=== PATIENT | female | born 1945 | race Caucasian/White ===

== ENCOUNTER → 2018-01-31 16:33 | Outpatient (CLI) | payer OTHER, SELFPAY ==
[2018-01-31 17:29] LABS: Add Manual Diff / Slide Review NO; Basophils Percent Auto 0.8 % (0-2); Eosinophils Percent Auto 6.7 % (2-4); Hematocrit 39.9 % (36-46); Hemoglobin 13.5 g/dL (12.0-16.0); Lymphocytes Percent Auto 22.3 % (25-40); Mean Corpuscular HGB Conc 33.7 % (30-36); Mean Corpuscular Hemoglobin 34.5 PG (26-34); Mean Corpuscular Volume 102.2 fL (80-100); Monocytes Percent Auto 9.4 % (3-14); Neutrophils Absolute Auto 3500 /uL (3000-5900); Neutrophils Percent Auto 60.8 % (50-75); Platelet Count 182 X10^3/uL (150-400); Red Cell Distribution Width 14.6 % (11.6-14.8); White Blood Cell Count 5.7 X10^3/uL (4.5-11.0)
[2018-01-31 17:59] LABS: Erythrocyte Sedimentation Rate 21 MM/HR (0-20)
[2018-01-31 18:59] LABS: Alanine Aminotransferase 34 IU/L (9-52); Albumin 4.2 g/dL (3.5-5.0); Albumin Globulin Ratio 1.3 (1.0-2.8); Alkaline Phosphatase 103 U/L (38-126); Aspartate Aminotransferase 31 IU/L (14-36); BUN Creatinine Ratio 38.6 (6-22); Bilirubin Total 0.5 mg/dL (0.2-1.3); Blood Urea Nitrogen 27 mg/dL (7-17); C-Reactive Protein Quant 1.3 mg/dL (<1.0); Calcium 9.4 mg/dL (8.4-10.2); Carbon Dioxide 30 mmol/L (22-32); Chloride 101 mmol/L (98-107); Estimated Glomerular Filt Rate > 60.0 mL/min (>60); Globulin 3.2 g/dL (1.7-4.1); Glucose 93 mg/dL (80-110); HEMOLYSIS < 15 (0-50); Potassium 4.6 mmol/L (3.4-5.1); Sodium 140 mmol/L (137-145); Total Protein 7.4 g/dL (6.3-8.2); Uric Acid 4.9 mg/dL (2.5-6.2)
[2018-02-02 14:16] LABS: Thyroid Stimulating Hormone 2.14 uIU/mL (0.47-4.68)
== END ==
PROVIDERS: Family Provider Physician Assistant; PCP Physician Assistant; Visit Provider Specialist/Technologist Athletic Trainer
DX: M1A.09X1 Idiopathic chronic gout, multiple sites, with tophus (tophi) (principal)
CPT/HCPCS: 36415; 80053; 84443; 84550; 85025; 85651; 86140

== ENCOUNTER → 2018-02-06 14:46 | Outpatient (CLI) | payer OTHER, SELFPAY ==
--- NOTE | 2018-02-06 | DI.RAD.S_ITS ---
PROCEDURE: XR KNEE RT 3V INDICATIONS: pain in right knee TECHNIQUE: 3 views of the knee were acquired. COMPARISON: None. FINDINGS: Bones: No fractures or dislocations. No suspicious bony lesions. Knee joint osteoarthritis is severe at the medial compartment and also the patellofemoral joint greater at the lateral facet the medial facet. Soft tissues: No joint effusion. No suspicious soft tissue calcifications. IMPRESSION: Severe degenerative knee joint osteoarthritis as discussed, most pronounced with [id number] articulation at the medial compartment and the lateral facet of the patellofemoral joint. Dictated by: Enoc Salamanca M.D. on 02/06/2018 at 15:33 Approved by: Enoc Salamanca M.D. on 02/06/2018 at 15:34
== END ==
PROVIDERS: Family Provider Physician Assistant; PCP Physician Assistant; Visit Provider Physician Assistant
DX: M17.11 Unilateral primary osteoarthritis, right knee (principal); M25.561 Pain in right knee
CPT/HCPCS: 73562

== ENCOUNTER → 2018-03-16 12:41 | Outpatient (CLI) | payer OTHER, SELFPAY ==
--- NOTE | 2018-03-16 | DI.RAD.S_ITS ---
PROCEDURE: XR FEMUR LT MIN 2V INDICATIONS: PAIN IN LEFT LEG TECHNIQUE: 4 views of the femur were acquired. COMPARISON: [facility], CR, XR KNEE ARTHRITIC SERIES RT, 02/22/2018, 8:26. FINDINGS: Bones: No fractures or dislocations. No suspicious bony lesions. Degenerative joint disease is moderate at the hip and severe at the knee. Soft tissues: No suspicious soft tissue calcifications or masses. IMPRESSION: No acute bony abnormality. Degenerative joint disease. Dictated by: Sundeep Miles M.D. on 03/16/2018 at 13:26 Approved by: Sundeep Miles M.D. on 03/16/2018 at 13:28
== END ==
PROVIDERS: Family Provider Physician Assistant; PCP Physician Assistant; Visit Provider Physician Assistant
DX: M17.12 Unilateral primary osteoarthritis, left knee (principal); M16.12 Unilateral primary osteoarthritis, left hip; M79.605 Pain in left leg
CPT/HCPCS: 73552

== ENCOUNTER → 2018-04-27 11:50 | Outpatient (CLI) | payer OTHER, SELFPAY ==
[2018-04-27 13:56] LABS: Alanine Aminotransferase 34 IU/L (9-52); Albumin 4.1 g/dL (3.5-5.0); Albumin Globulin Ratio 1.3 (1.0-2.8); Alkaline Phosphatase 103 U/L (38-126); Aspartate Aminotransferase 34 IU/L (14-36); BUN Creatinine Ratio 27.1 (6-22); Bilirubin Total 0.5 mg/dL (0.2-1.3); Blood Urea Nitrogen 19 mg/dL (7-17); Calcium 9.3 mg/dL (8.4-10.2); Carbon Dioxide 34 mmol/L (22-32); Chloride 102 mmol/L (98-107); Estimated Glomerular Filt Rate > 60.0 mL/min (>60); Globulin 3.1 g/dL (1.7-4.1); Glucose 93 mg/dL (80-110); HEMOLYSIS < 15 (0-50); Magnesium 1.9 mg/dL (1.6-2.3); Potassium 4.7 mmol/L (3.4-5.1); Sodium 143 mmol/L (137-145); Total Protein 7.2 g/dL (6.3-8.2)
[2018-05-01 10:10] LABS: Lipoprofile NMR SEE SEPERATE REPORT
== END ==
PROVIDERS: Family Provider Physician Assistant; PCP Physician Assistant; Visit Provider Specialist
DX: E78.2 Mixed hyperlipidemia (principal); I48.0 Paroxysmal atrial fibrillation
CPT/HCPCS: 36415; 80053; 83704; 83735

== ENCOUNTER → 2018-09-28 11:40 | Outpatient (CLI) | payer OTHER, SELFPAY ==
[2018-09-28 12:30] LABS: Alanine Aminotransferase 36 IU/L (9-52); Albumin 4.4 g/dL (3.5-5.0); Albumin Globulin Ratio 1.2 (1.0-2.8); Alkaline Phosphatase 96 U/L (38-126); Aspartate Aminotransferase 29 IU/L (14-36); BUN Creatinine Ratio 36.3 (6-22); Bilirubin Total 0.6 mg/dL (0.2-1.3); Blood Urea Nitrogen 29 mg/dL (7-17); C-Reactive Protein Quant 0.7 mg/dL (<1.0); Calcium 9.3 mg/dL (8.4-10.2); Carbon Dioxide 33 mmol/L (22-32); Chloride 98 mmol/L (98-107); Cholesterol 229 mg/dL (140-199); Estimated Glomerular Filt Rate > 60.0 mL/min (>60); Globulin 3.6 g/dL (1.7-4.1); Glucose 95 mg/dL (80-110); HDL Cholesterol 75 mg/dL (40-60); HEMOLYSIS < 15 (0-50); LDL Cholesterol Calculated 130 mg/dL (<100); Magnesium 2.3 mg/dL (1.6-2.3); Potassium 4.5 mmol/L (3.4-5.1); Sodium 138 mmol/L (137-145); Triglycerides 120 mg/dL (35-150); Uric Acid 4.7 mg/dL (2.5-6.2)
[2018-09-28 13:37] LABS: Thyroid Stimulating Hormone 1.61 uIU/mL (0.47-4.68)
[2018-10-02 08:33] LABS: Lipoprofile NMR SEE SEPARATE REPORTS
== END ==
PROVIDERS: PCP Physician Assistant; Visit Provider Specialist
DX: I48.0 Paroxysmal atrial fibrillation (principal); E78.2 Mixed hyperlipidemia
CPT/HCPCS: 36415; 80053; 80061; 83704; 83735; 84443; 84550; 86140

== ENCOUNTER → 2019-04-05 11:55 | Outpatient (CLI) | payer MEDICARE, OTHER, SELFPAY ==
[2019-04-05 12:50] LABS: Add Manual Diff / Slide Review NO; Basophils Absolute Auto 0 /uL (0-100); Basophils Percent Auto 1.1 % (0-2); Eosinophils Absolute Auto 200 /uL (0-450); Eosinophils Percent Auto 5.2 % (2-4); Hematocrit 41.6 % (36-46); Hemoglobin 13.8 g/dL (12.0-16.0); Lymphocytes Absolute Auto 1200 /uL (1100-4500); Mean Corpuscular HGB Conc 33.1 % (30-36); Mean Corpuscular Hemoglobin 33.9 PG (26-34); Mean Corpuscular Volume 102.5 fL (80-100); Monocytes Absolute Auto 500 /uL (0-900); Monocytes Percent Auto 12.4 % (3-14); Neutrophils Absolute Auto 1900 /uL (1500-7000); Neutrophils Percent Auto 50.3 % (50-75); Platelet Count 183 X10^3/uL (150-400); Red Blood Cell Count 4.06 X10^6/uL (4.0-5.2); Red Cell Distribution Width 14.3 % (11.6-14.8); White Blood Cell Count 3.7 X10^3/uL (4.5-11.0)
[2019-04-05 13:21] LABS: B Type Natriuretic Peptide 406 (<100)
[2019-04-05 13:51] LABS: Free T3, Triiodothyronine Free 3.75 pg/mL (2.77-5.27); Free T4, Direct Thyroxine 1.75 ng/dL (0.78-2.19)
[2019-04-05 13:55] LABS: Alanine Aminotransferase 26 IU/L (9-52); Albumin 4.1 g/dL (3.5-5.0); Albumin Globulin Ratio 1.2 (1.0-2.8); Alkaline Phosphatase 89 U/L (38-126); Aspartate Aminotransferase 29 IU/L (14-36); Bilirubin Total 0.6 mg/dL (0.2-1.3); Blood Urea Nitrogen 21 mg/dL (7-17); Calcium 9.3 mg/dL (8.4-10.2); Carbon Dioxide 32 mmol/L (22-32); Chloride 98 mmol/L (98-107); Estimated Glomerular Filt Rate > 60.0 mL/min (>60); Globulin 3.3 g/dL (1.7-4.1); Glucose 97 mg/dL (80-110); HEMOLYSIS < 15 (0-50); Magnesium 1.8 mg/dL (1.6-2.3); Potassium 4.2 mmol/L (3.4-5.1); Sodium 140 mmol/L (137-145); Total Protein 7.4 g/dL (6.3-8.2); Uric Acid 4.2 mg/dL (2.5-6.2)
[2019-04-05 14:05] LABS: Thyroid Stimulating Hormone 0.22 uIU/mL (0.47-4.68)
[2019-04-07 15:38] LABS: Rubeola Measles IgG > 300.00 AU/mL (< 25.00)
== END ==
PROVIDERS: PCP Internal Medicine; Visit Provider Internal Medicine
DX: E03.9 Hypothyroidism, unspecified (principal); I44.2 Atrioventricular block, complete; Z01.84 Encounter for antibody response examination; M10.9 Gout, unspecified; I50.22 Chronic systolic (congestive) heart failure; I48.0 Paroxysmal atrial fibrillation
CPT/HCPCS: 36415; 80053; 83735; 83880; 84439; 84443; 84481; 84550; 85025; 86735; 86762; 86765

== ENCOUNTER → 2019-05-15 16:10 | Outpatient (CLI) | payer MEDICARE, OTHER, SELFPAY ==
--- NOTE | 2019-05-15 | DI.CT.S_ITS ---
PROCEDURE: CT ABDOMEN PELVIS W CON INDICATIONS: LOWER LEFT QUAD ABDOMINAL PAIN TECHNIQUE: After the administration of oral and intravenous contrast, 5 mm thick sections acquired from the diaphragms to the symphysis. 5 mm thick coronal and sagittal reformats were performed. For radiation dose reduction, the following was used: automated exposure control, adjustment of mA and/or kV according to patient size. COMPARISON: Located [facility], CR, XR CHEST 2VW, 10/14/2016, 6:54. FINDINGS: Image quality: Excellent. ABDOMEN: Lung bases: No acute consolidation. Scattered subsegmental atelectasis and/or scarring. No pleural effusion. Solid organs: Liver is within normal limits. Gallbladder unremarkable. Biliary system is non-dilated. Pancreas enhances normally. Spleen is normal in size and enhancement. Adrenal glands unremarkable. Kidneys are within normal limits, without hydronephrosis. Peritoneum and bowel: Trace hiatal hernia. Small bowel and duodenum unremarkable. No free fluid or air. Bowel containing right inguinal hernia. No specific evidence for bowel obstruction. Colonic diverticulosis seen. There is also a short segment of mural thickening and adjacent pericolonic inflammation/stranding involving the descending segment. No abscess identified. Rectum unremarkable, given state of decompression. Nodes and vessels: No retroperitoneal or mesenteric adenopathy. Aorta and inferior vena cava are normal in caliber. Miscellaneous: No ventral hernias. PELVIS: Genitourinary: Bladder wall thickness is normal. Bilateral inguinal hernias containing bowel on the right and fat on the left. L1 compression fracture with mild height loss, probably unchanged since 10/14/16. IMPRESSION: Presumed acute diverticulitis involving the descending colon. However, recommend clinical followup, consider endoscopy if clinically appropriate to exclude colonic malignancy. Bowel containing right inguinal hernia however no specific evidence for bowel obstruction seen at this time. Technically cannot exclude incarceration Additional chronic and incidental findings as above. Dictated by: Vaughn Monterroso M.D. on 05/16/2019 at 9:28 Approved by: Vaughn Monterroso M.D. on 05/16/2019 at 9:41
[2019-05-15 16:29] LABS: Add Manual Diff / Slide Review NO; Basophils Absolute Auto 0 /uL (0-100); Basophils Percent Auto 0.4 % (0-2); Eosinophils Absolute Auto 300 /uL (0-450); Eosinophils Percent Auto 4.8 % (2-4); Hematocrit 40.7 % (36-46); Hemoglobin 13.5 g/dL (12.0-16.0); Lymphocytes Absolute Auto 1300 /uL (1100-4500); Lymphocytes Percent Auto 22.5 % (25-40); Mean Corpuscular HGB Conc 33.2 % (30-36); Mean Corpuscular Hemoglobin 34.2 PG (26-34); Monocytes Absolute Auto 600 /uL (0-900); Monocytes Percent Auto 9.9 % (3-14); Neutrophils Absolute Auto 3700 /uL (1500-7000); Neutrophils Percent Auto 62.4 % (50-75); Platelet Count 158 X10^3/uL (150-400); Red Blood Cell Count 3.95 X10^6/uL (4.0-5.2); Red Cell Distribution Width 14.7 % (11.6-14.8); White Blood Cell Count 5.9 X10^3/uL (4.5-11.0)
[2019-05-15 16:39] LABS: Blood Urea Nitrogen 17 mg/dL (7-17)
[2019-05-15 16:51] LABS: BUN Creatinine Ratio 28.3 (6-22); Calcium 9.2 mg/dL (8.4-10.2); Carbon Dioxide 30 mmol/L (22-32); Chloride 102 mmol/L (98-107); Estimated Glomerular Filt Rate > 60.0 mL/min (>60); Glucose 104 mg/dL (80-110); HEMOLYSIS < 15 (0-50); Potassium 3.9 mmol/L (3.4-5.1); Sodium 138 mmol/L (137-145)
== END ==
PROVIDERS: PCP Internal Medicine; Visit Provider Internal Medicine
DX: R10.32 Left lower quadrant pain (principal); K57.90 Diverticulosis of intestine, part unspecified, without perforation or abscess without bleeding; K40.90 Unilateral inguinal hernia, without obstruction or gangrene, not specified as recurrent
CPT/HCPCS: 36415; 74177; 80048; 85025; Q9967

== ENCOUNTER → 2019-08-09 11:34 | Outpatient (CLI) | payer MEDICARE, OTHER, SELFPAY ==
[2019-08-09 12:50] LABS: Alanine Aminotransferase 18 IU/L (<35); Albumin 4.2 g/dL (3.5-5.0); Albumin Globulin Ratio 1.4 (1.0-2.8); Alkaline Phosphatase 92 U/L (38-126); Aspartate Aminotransferase 30 IU/L (14-36); BUN Creatinine Ratio 32.9 (6-22); Bilirubin Total 0.4 mg/dL (0.2-1.3); Blood Urea Nitrogen 23 mg/dL (7-17); Calcium 9.3 mg/dL (8.4-10.2); Carbon Dioxide 31 mmol/L (22-32); Chloride 101 mmol/L (98-107); Estimated Glomerular Filt Rate > 60.0 mL/min (>60); Glucose 90 mg/dL (80-110); HEMOLYSIS < 15 (0-50); Magnesium 2.2 mg/dL (1.6-2.3); Potassium 4.7 mmol/L (3.4-5.1); Sodium 140 mmol/L (137-145); Total Protein 7.2 g/dL (6.3-8.2)
[2019-08-09 13:12] LABS: B Type Natriuretic Peptide 181 (<100)
[2019-08-09 13:15] LABS: Thyroid Stimulating Hormone 2.72 uIU/mL (0.47-4.68)
[2019-08-13 08:29] LABS: Lipoprofile NMR SEE SEPERATE REPORT
== END ==
PROVIDERS: PCP Internal Medicine; Visit Provider Specialist
DX: R79.89 Other specified abnormal findings of blood chemistry (principal); E03.9 Hypothyroidism, unspecified; I48.0 Paroxysmal atrial fibrillation; E78.2 Mixed hyperlipidemia; I50.22 Chronic systolic (congestive) heart failure
CPT/HCPCS: 36415; 80053; 83704; 83735; 83880; 84443

== ENCOUNTER → 2020-03-27 10:25 | Outpatient (CLI) | payer MEDICARE, OTHER, SELFPAY ==
[2020-03-27 11:39] LABS: Alanine Aminotransferase 19 IU/L (<35); Albumin 3.9 g/dL (3.5-5.0); Albumin Globulin Ratio 1.2 (1.0-2.8); Alkaline Phosphatase 88 U/L (38-126); Aspartate Aminotransferase 26 IU/L (14-36); BUN Creatinine Ratio 22.5 (6-22); Bilirubin Total 0.7 mg/dL (0.2-1.3); Blood Urea Nitrogen 16 mg/dL (7-17); Carbon Dioxide 30 mmol/L (22-32); Chloride 102 mmol/L (98-107); Estimated Glomerular Filt Rate > 60.0 mL/min (>60); Globulin 3.3 g/dL (1.7-4.1); Glucose 87 mg/dL (80-110); HEMOLYSIS < 15 (0-50); Magnesium 2.2 mg/dL (1.6-2.3); Potassium 4.8 mmol/L (3.4-5.1); Sodium 137 mmol/L (137-145); Total Protein 7.2 g/dL (6.3-8.2)
[2020-03-27 11:42] LABS: Uric Acid 4.3 mg/dL (2.5-6.2)
[2020-03-27 12:09] LABS: Thyroid Stimulating Hormone 1.56 uIU/mL (0.47-4.68)
[2020-03-29 09:36] LABS: Cholesterol, Total 202 mg/dL (100-199); HDL-Cholesterol 66 mg/dL (>39); HDL-Particle (Total) 31.3 umol/L (>=30.5); Historical Reading Comment: (.); LDL Particle 1310 nmol/L (<1000); LDL Size 21.6 nm (>20.5); LDL-Cholsterol 115 mg/dL (0-99); LP-IR Score 41 (<=45); Small LDL- Particle 231 nmol/L (<=527); Triglycerides 107 mg/dL (0-149)
== END ==
PROVIDERS: PCP Internal Medicine; Referring Provider Internal Medicine; Visit Provider Specialist
DX: I48.0 Paroxysmal atrial fibrillation (principal); I42.9 Cardiomyopathy, unspecified; E78.2 Mixed hyperlipidemia; E79.0 Hyperuricemia without signs of inflammatory arthritis and tophaceous disease; E03.9 Hypothyroidism, unspecified
CPT/HCPCS: 36415; 80053; 80061; 83704; 83735; 84443; 84550

== ENCOUNTER 2020-04-30 15:18 | Inpatient (IN) | payer MEDICARE, OTHER, SELFPAY ==
[2020-04-30] VITALS (34 sets, daily range): BP systolic 132–189; BP diastolic 61–84; PULSE 60–66; RESP 15–18; TEMP 36.6–36.9; O2SAT 93–98; BMI 43.9
[2020-04-30] MEDS: SODIUM CHLORIDE 0.9% 1,000 ML 125 ML IV (16:17)
[2020-04-30 16:23] LABS: Bacteria Urine Many (>30); Culture Indicated Urine Cult Not Indicated; RBC Urine 1-5/HPF (0-5/HPF); Squamous Epithelial Cell Urine 10-30 /HPF (0-5/HPF); WBC Urine 5-10/HPF (0-5/HPF)
[2020-04-30 16:31] LABS: Add Manual Diff / Slide Review NO; Basophils Absolute Auto 0 /uL (0-100); Basophils Percent Auto 0.8 % (0-2); Eosinophils Absolute Auto 200 /uL (0-450); Eosinophils Percent Auto 5.2 % (2-4); Hematocrit 41.6 % (36-46); Hemoglobin 13.8 g/dL (12.0-16.0); Lymphocytes Absolute Auto 1300 /uL (1100-4500); Lymphocytes Percent Auto 28.4 % (25-40); Mean Corpuscular HGB Conc 33.1 % (30-36); Mean Corpuscular Hemoglobin 34.8 PG (26-34); Mean Corpuscular Volume 105.2 fL (80-100); Monocytes Absolute Auto 500 /uL (0-900); Monocytes Percent Auto 11.2 % (3-14); Neutrophils Absolute Auto 2500 /uL (1500-7000); Neutrophils Percent Auto 54.4 % (50-75); Platelet Count 176 X10^3/uL (150-400); Red Blood Cell Count 3.96 X10^6/uL (4.0-5.2); Red Cell Distribution Width 14.4 % (11.6-14.8); White Blood Cell Count 4.6 X10^3/uL (4.5-11.0)
[2020-04-30 16:38] LABS: INR 3.1 (0.9-1.3); Prothrombin Time 35.7 SECONDS (10.1-12.7)
[2020-04-30 16:50] LABS: Alanine Aminotransferase 19 IU/L (<35); Albumin 4.2 g/dL (3.5-5.0); Albumin Globulin Ratio 1.2 (1.0-2.8); Alkaline Phosphatase 93 U/L (38-126); Aspartate Aminotransferase 35 IU/L (14-36); BUN Creatinine Ratio 32.4 (6-22); Bilirubin Total 0.6 mg/dL (0.2-1.3); Blood Urea Nitrogen 24 mg/dL (7-17); Calcium 8.9 mg/dL (8.4-10.2); Carbon Dioxide 34 mmol/L (22-32); Chloride 100 mmol/L (98-107); Estimated Glomerular Filt Rate > 60.0 mL/min (>60); Globulin 3.5 g/dL (1.7-4.1); Glucose 99 mg/dL (80-110); HEMOLYSIS 15 (0-50); Lipase 32 U/L (23-300); Potassium 4.1 mmol/L (3.4-5.1); Sodium 139 mmol/L (137-145); Total Protein 7.7 g/dL (6.3-8.2)
[2020-04-30 16:51] LABS: Lactate (Lactic Acid) 0.7 mmol/L (0.7-2.1)
--- NOTE | 2020-04-30 16:52 | DI.CT.S_ITS ---
PROCEDURE: CT ABDOMEN PELVIS W CON INDICATIONS: RLQ pain, hx diverticulitis in left quad, appy? TECHNIQUE: After the administration of intravenous contrast, 5 mm thick sections acquired from the diaphragm to the symphysis. 5 mm coronal and sagittal reformats were acquired. For radiation dose reduction, the following was used: automated exposure control, adjustment of mA and/or kV according to patient size. COMPARISON: [facility], CT, CT ABDOMEN PELVIS W CON, 05/15/2019, 17:09. FINDINGS: Image quality: Excellent. ABDOMEN: Lung bases: There is mild atelectasis and scarring in the lung bases. Heart size is enlarged. There is a minimal amount of pericardial fluid redemonstrated. There are pacemaker leads extending into the right atrium, right ventricle, and coronary sinus. There is a small hiatal hernia. Solid organs: Evaluation of the liver demonstrates no focal hepatic lesions. The gallbladder appears within normal limits without calcified gallstones. Biliary system is non-dilated. Pancreas enhances normally. No peripancreatic fat stranding or fluid collections. No pancreatic duct dilatation. The spleen is normal in size. No adrenal nodules. Kidneys demonstrate no hydronephrosis. Peritoneum and bowel: Small bowel loops demonstrate normal wall thickness and caliber. The appendix is normal in appearance. There is partial herniation of the cecum into a small right inguinal hernia. There is mild bowel wall thickening within the inguinal canal with minimal fat stranding. Findings are suggestive of bowel incarceration with possible developing strangulation. No associated bowel obstruction. There is also herniation of a short segment of small bowel into a left inguinal hernia without associated bowel wall thickening. No associated bowel obstruction. There is colonic diverticulosis without acute diverticulitis. No free fluid or air. Nodes and vessels: No retroperitoneal or mesenteric adenopathy by size criteria. Aorta and inferior vena cava are normal in size. Miscellaneous: No ventral hernias. PELVIS: Genitourinary: The urinary bladder is partially distended. There is a small focus of gas within the bladder. Miscellaneous: No inguinal adenopathy. Bones: No suspicious bony lesions. No vertebral body compression fractures. IMPRESSION: 1. No evidence of appendicitis. 2. Partial herniation of the cecum into a small right inguinal hernia with associated mild bowel wall thickening in the inguinal canal. The findings are suggestive of bowel incarceration with possible developing strangulation. No associated bowel obstruction. 3. Herniation of a short segment of small bowel into a small left inguinal hernia without associated bowel wall thickening or obstruction. Findings discussed with JAS Esparza on April 30, 2020 at 5:55 p.m.. 4. Colonic diverticulosis without acute diverticulitis. 5. Minimal pericardial effusion. 6. Small focus of gas within the bladder is nonspecific and may be associated with prior catheterization or reflect infection from a gas-forming organism. Recommend correlation clinically. Dictated by: Ravi Camarena M.D. on 04/30/2020 at 17:51 Approved by: Ravi Camarena M.D. on 04/30/2020 at 17:59
[2020-04-30 17:06] LABS: Procalcitonin < 0.05 ng/mL (<0.5)
--- NOTE | 2020-04-30 17:53 | ED_ITS ---
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 acutely. Patient reports a few times she had similar pain but it had resolved but the severe ED and duration are much worst today. Patient denies fever, chills, nausea or vomiting or previous abdominal surgeries. She has loose stools but this is not new to patient. Patient denies urinary symptoms such as urgency, frequency, hematuria, dysuria. Patient denies history of ovarian problems in the past. Denies unusual vaginal discharge or bleeding. She denies chest pain, or dyspnea. Patient reports taking a deep red helps with pain and no other aggravating factors. Patient was seen by Dr. Spring this afternoon and was recommended to going to ED for an evaluation her his exam with exquisite discomfort in right lower quadrant. Last meal/drink at 1330. Related Data Home Medications Medication Instructions Recorded Confirmed levothyroxine [Levoxyl] 0.2 mg PO QDAY #0 10/22/11 metoprolol tartrate 25 mg PO BID #0 10/22/11 CHOLECALCIFEROL (VITAMIN D) 2,000 iu PO Q DAY #0 08/06/12 Fish Oil 1,000 mg PO Q DAY #0 08/06/12 potassium chloride 10 meq PO Q DAY #0 08/06/12 warfarin [Coumadin] 7.5 mg PO QDAY #0 08/06/12 allopurinol 04/30/20 levothyroxine [Synthroid] 04/30/20 metoprolol succinate PO 04/30/20 sotalol 04/30/20 torsemide mg 04/30/20 warfarin [Jantoven] 04/30/20 Allergies Allergy/AdvReac Type Severity Reaction Status Date / Time amoxicillin [AMOXICILLIN] Allergy Unknown Unverified 04/11/18 13:11 benzocaine [BENZOCAINE] Allergy Unknown Unverified 11/16/17 13:11 cephalexin [CEPHALEXIN] Allergy Unknown Unverified 11/16/17 13:11 metronidazole [METRONIDAZOLE] Allergy Unknown Unverified 11/16/17 13:11 oxycodone Allergy Verified 05/01/20 00:40 Review of Systems <JAS Esparza - Last Filed: 04/30/20 23:06> Review of Systems Narrative: General: Denies fever, chills, fatigue, malaise, sweats. HEENT: Denies sinus pain, ear pain, sore throat, difficulty swallowing, dizziness. Respiratory: Denies dyspnea, cough, wheezing, hemoptysis, sputum. Cardiovascular: Denies chest pain, palpitations, orthopnea, edema. Gastrointestinal: See HPI : Denies dysuria, frequency, incontinence, hematuria, urinary retention. Musculoskeletal: Denies weakness, joint pain or bony pain. Skin: Denies rash, skin lesions, or other. Neurologic: Denies weakness, headache, numbness, change in speech, confusion, seizures, incoordination. Psychiatric: No concerning psychosocial issues. 12-point review of systems is negative except for those stated above. Patient History <JAS Esparza - Last Filed: 04/30/20 23:06> Medical History (Updated 04/30/20 @ 19:29 by JAS Esparza) Afib (Acute) Ataxia (Acute) First degree AV block (Acute) Gout (Acute) Hyperlipidemia (Acute) Hypertension (Acute) Hypothyroidism (Acute) Left bundle branch block (Acute) Obese (Acute) Pacemaker (Acute) Third degree heart block (Acute) Surgical History (Updated 04/30/20 @ 19:29 by JAS Esparza) H/O cardiac radiofrequency ablation (Acute) Social History Smoking Status: Never smoker Smoking Status: Never smoker alcohol intake frequency: 3 or more drinks per day Alcohol type: wine Substance Use Type: does not use Exam <JAS Esparza - Last Filed: 04/30/20 23:06> Narrative Exam Narrative: GEN: Alert, oriented x 3, well appearing and nourished, and in no acute distress. Head: Normal cephalic, atraumatic. No scalp or temporal tenderness, palpable mass or rash. EYES: Pupils are equal, round, and reactive to light and accommodation. Extraocular muscles are intact bilaterally. There is no subconjunctival hemorrhage, exudate and sclera non-icteric. ENT: Hearing grossly intact. Nose without bleeding, purulent discharge or dev iation. Facial sinuses nontender to palpate. Mucous membrane moist, no mucosal lesion. Throat without erythema, tonsillar hypertrophy or exudate. Uvula in midline, airway patent. Neck: Trachea in midline. No JVD, non-tender without lymphadenopathy. No masses or thyroid megaly. Supple, non-tender and no meningeal signs. CARDIAC: Normal regular rate and rhythm without murmurs, gallops, or rubs. No chest wall tenderness. No peripheral edema, cyanosis or pallor. Capillary refill is less than 2 seconds. RESPIRATORY: Lungs are clear to auscultate bilaterally. No cough, wheezes, rales, or rhonchi. No stridor, respiratory distress, increase work of breathing, or accessary muscle used. ABD: Abdomen soft, non distended. Localized pain in right lower quadrants with deep palpation. Positive Rovsing sign. No guarding or rebound tenderness to palpate. Bowel sounds are normal in all 4 quadrants. There is no palpable masses or organomegaly. EXT: Right knee chronic pain and uses 2 canes for ambulation. No no loss of sensation, strength, effusion or edema. SKIN: Warm, dry, normal color for patient. No erythema, lesions or rash over visible areas. BACK: Nontender without deformity or crepitance. No flank tenderness. NEUROLOGICAL: Alert and oriented to place, time and person. Sensation and motor function intact bilaterally. No facial droops, dysphasia. PSYCHIATRIC: Irritable. No hallucinations or abnormal behaviors during the examination. Patient is not suicidal. Initial Vital Signs Initial Vital Signs: Vital Signs Pulse Rate 60 04/30/20 15:26 Pulse Oximetry 96 04/30/20 15:26 <Juanjose Gallegos MD - Last Filed: 05/01/20 00:41> Initial Vital Signs Initial Vital Signs: Vital Signs Pulse Rate 60 04/30/20 15:26 Pulse Oximetry 96 04/30/20 15:26 Scores <JAS Esparza - Last Filed: 04/30/20 23:06> GCS [place] coma scale eye opening: Spontaneous [place] coma scale verbal response: Orientated Tiffany coma scale motor response: Obey commands [place] coma scale total score: 15 Course <Caesar JAS Hawkins - Last Filed: 04/30/20 23:06> Orders Ordered: ED Orders 04/30/20 16:03 Urine Culture Stat Urine Microscopic Stat 04/30/20 16:15 Complete Blood Count AUTO DIFF Stat Comprehensive Metabolic Panel Stat Lactate (Lactic Acid) Stat Lipase Stat Procalcitonin Stat Prothrombin Time INR Stat Troponin & CK Cardiac Panel Stat 04/30/20 16:16 Type and Screen Stat 04/30/20 16:52 CT abdomen pelvis w con Stat 04/30/20 18:05 EKG-12 Lead Stat 04/30/20 18:15 COVID19 -ED/INPAT/OR/L&D Stat Acetaminophen (Tylenol) 650 mg PO Q6HR PRN PRN Reason: Fever/Mild Pain (1-3) Sodium Chloride (Normal Saline 0.9%) 1,000 mls @ 125 mls/hr IV CONT IMER Last Admin: 04/30/20 16:17 Dose: 125 mls/hr Documented by: MMINOR Sodium Chloride (Normal Saline 0.9%) 1,000 mls @ 100 mls/hr IV CONT IMER Levothyroxine Sodium (Synthroid) 200 mcg PO QACBREAK IMER Metoprolol Tartrate (Lopressor) 25 mg PO BID IMER Ondansetron HCl (Zofran) 4 mg IV Q8HR PRN PRN Reason: Nausea And Vomiting Reevaluation(s) Reevaluation #1: Continue to have RLQ with deep palpation. Attempted to reduce the hernia but difficulty finding the effectiveness since patient's large body habitus. When informed the CT findings, the patient appears to be upset, stressed and stating there are too many things happening at home. Patient has many questions about the surgery itself, duration of hospital stay, and recuperating time period. I answer to patient's questions to the best of my abilities advised patient to ask questions to the surgeon for further questions. Time: 18:00 Reevaluation #2: Dr. Castañeda consulted with CT findings and medical history. He was recommended to admit patient under medical service given patient has complicated cardiac history and he will be consulted for the surgical procedure. He is planning to go ahead with surgery likely in several hours. Patient's current coagulated state will require reversing. Time: 18:09 Reevaluation #3: Dr. Naik consulted with CT findings and history. He kindly accepted patient's care but requested Troponin test to be added and to find out the approximate time for OR since PCC needs to be ordred ahead of the time. Patient could receive vitamin K if OR time is pending for tomorrow. Time: 18:15 Consultations Consultation #1: Type and screen added as well for possible FFP use and Dr. Naik informed on negative cardiac enzymes results Time: 19:00 Consultation #2: Dr. Castañeda called back and reports he is ready to take patient to OR soon as patient's anticoagulation is reversed. He is still planning to take patient to or tonight but not critically urgent and recommended FFP at this time. T & S done and ordered [address] Naik requested and called the Lab to confirm this. I Was informed that it takes approximately 30 minutes to process this request. I called Dr. Naik back to relate this information. Time: 19:50 Consultation #3: Patient is receiving 1st FFP without side effects. Time: 20:50 Additional Consultation(s): Attempted to admit the patient after the 2nd FFP infusion but the hospitalist CERAMIST Monterroso this point until the patient is out of OR since she has other admission patient evaluate. The patient will be managed and monitored in ED then. Dr. Gallegos aware of the plan. Vital Signs Vital signs: Vital Signs - 8 hr 04/30/20 17:00 04/30/20 17:01 04/30/20 17:18 Pulse Rate 63 60 Respiratory Rate Blood Pressure 175/84 H Pulse Oximetry 98 97 04/30/20 17:30 04/30/20 18:00 04/30/20 18:09 Pulse Rate 65 64 65 Respiratory Rate Blood Pressure 152/73 H Pulse Oximetry 97 98 97 04/30/20 18:56 04/30/20 18:57 04/30/20 19:00 Pulse Rate 66 66 66 Respiratory Rate 16 Blood Pressure 143/74 H 143/74 H 148/78 H Pulse Oximetry 97 96 97 <Juanjose Gallegos MD - Last Filed: 05/01/20 00:41> Orders Ordered: ED Orders 04/30/20 16:03 Urine Culture Stat Urine Microscopic Stat 04/30/20 16:15 Complete Blood Count AUTO DIFF Stat Comprehensive Metabolic Panel Stat Lactate (Lactic Acid) Stat Lipase Stat Procalcitonin Stat Prothrombin Time INR Stat Troponin & CK Cardiac Panel Stat 04/30/20 16:16 Type and Screen Stat 04/30/20 16:52 CT abdomen pelvis w con Stat 04/30/20 18:05 EKG-12 Lead Stat 04/30/20 18:15 COVID19 -ED/INPAT/OR/L&D Stat Acetaminophen (Tylenol) 650 mg PO Q6HR PRN PRN Reason: Fever/Mild Pain (1-3) Sodium Chloride (Normal Saline 0.9%) 1,000 mls @ 125 mls/hr IV CONT IMER Last Admin: 04/30/20 16:17 Dose: 125 mls/hr Documented by: MMINOR Sodium Chloride (Normal Saline 0.9%) 1,000 mls @ 100 mls/hr IV CONT IMER Levothyroxine Sodium (Synthroid) 200 mcg PO QACBREAK IMER Metoprolol Tartrate (Lopressor) 25 mg PO BID IMER Ondansetron HCl (Zofran) 4 mg IV Q8HR PRN PRN Reason: Nausea And Vomiting Vital Signs Vital signs: Vital Signs - 8 hr 04/30/20 17:00 04/30/20 17:01 04/30/20 17:18 Pulse Rate 63 60 Respiratory Rate Blood Pressure 175/84 H Pulse Oximetry 98 97 04/30/20 17:30 04/30/20 18:00 04/30/20 18:09 Pulse Rate 65 64 65 Respiratory Rate Blood Pressure 152/73 H Pulse Oximetry 97 98 97 04/30/20 18:56 04/30/20 18:57 04/30/20 19:00 Pulse Rate 66 66 66 Respiratory Rate 16 Blood Pressure 143/74 H 143/74 H 148/78 H Pulse Oximetry 97 96 97 MDM - Abdominal Pain <JAS Esparza - Last Filed: 04/30/20 23:06> Differential Diagnosis Differential diagnosis: Likely acute appendicitis, small bowel obstruction and other (Diverticulitis, inguinal hernia, ovarian mass) Medical Records Attestation: I reviewed the patient's medical records. Lab Data Attestation: I reviewed the patient's lab results. Result diagrams: 04/30/20 16:15 04/30/20 16:15 Labs: Lab Results 04/30/20 04/30/20 04/30/20 Range/Units 16:03 16:15 16:15 WBC 4.6 (4.5-11.0) X10^3/uL RBC 3.96 L (4.0-5.2) X10^6/uL Hgb 13.8 (12.0-16.0) g/dL Hct 41.6 (36-46) % MCV 105.2 H (80-100) fL MCH 34.8 H (26-34) PG MCHC 33.1 (30-36) % RDW 14.4 (11.6-14.8) % Plt Count 176 (150-400) X10^3/uL Neut % (Auto) 54.4 (50-75) % Lymph % (Auto) 28.4 (25-40) % [place] % (Auto) 11.2 (3-14) % Eos % (Auto) 5.2 H (2-4) % Baso % (Auto) 0.8 (0-2) % Neut # (Auto) 2500 (1771-8069) /uL Lymph # (Auto) 1300 (6426-8657) /uL [place] # (Auto) 500 (0-900) /uL Eos # (Auto) 200 (0-450) /uL Baso # (Auto) 0 (0-100) /uL PT (10.1-12.7) SECONDS INR (0.9-1.3) Sodium (137-145) mmol/L Potassium (3.4-5.1) mmol/L Chloride (98-107) mmol/L Carbon Dioxide (22-32) mmol/L BUN (7-17) mg/dL Creatinine (0.52-1.04) mg/dL Estimated GFR (>60) mL/min BUN/Creatinine Ratio (6-22) Glucose (80-110) mg/dL Lactate (0.7-2.1) mmol/L Calcium (8.4-10.2) mg/dL Total Bilirubin (0.2-1.3) mg/dL AST (14-36) IU/L ALT (<35) IU/L Alkaline Phosphatase (38-126) U/L Total Creatine Kinase (30-135) U/L CK-MB (CK-2) CK-MB (CK-2) Rel Index Troponin I (0.01-0.034) ng/mL Total Protein (6.3-8.2) g/dL Albumin (3.5-5.0) g/dL Globulin (1.7-4.1) g/dL Albumin/Globulin Ratio (1.0-2.8) Lipase (23-300) U/L Procalcitonin < 0.05 (<0.5) ng/mL Urine RBC 1-5/hpf (0-5/HPF) Urine WBC 5-10/hpf H (0-5/HPF) Ur Squamous Epith Cells 10-30 /hpf H (0-5/HPF) Urine Bacteria Many (>30) H (None) Ur Culture Indicated? Cult not indicated COVID-19 PCR (Negative) Blood Type Antibody Screen 04/30/20 04/30/20 04/30/20 Range/Units 16:15 16:15 16:15 WBC (4.5-11.0) X10^3/uL RBC (4.0-5.2) X10^6/uL Hgb (12.0-16.0) g/dL Hct (36-46) % MCV (80-100) fL MCH (26-34) PG MCHC (30-36) % RDW (11.6-14.8) % Plt Count (150-400) X10^3/uL Neut % (Auto) (50-75) % Lymph % (Auto) (25-40) % [place] % (Auto) (3-14) % Eos % (Auto) (2-4) % Baso % (Auto) (0-2) % Neut # (Auto) (0752-1490) /uL Lymph # (Auto) (4814-8045) /uL [place] # (Auto) (0-900) /uL Eos # (Auto) (0-450) /uL Baso # (Auto) (0-100) /uL PT 35.7 H (10.1-12.7) SECONDS INR 3.1 H (0.9-1.3) Sodium 139 (137-145) mmol/L Potassium 4.1 (3.4-5.1) mmol/L Chloride 100 (98-107) mmol/L Carbon Dioxide 34 H (22-32) mmol/L BUN 24 H (7-17) mg/dL Creatinine 0.74 (0.52-1.04) mg/dL Estimated GFR > 60.0 (>60) mL/min BUN/Creatinine Ratio 32.4 H (6-22) Glucose 99 (80-110) mg/dL Lactate 0.7 (0.7-2.1) mmol/L Calcium 8.9 (8.4-10.2) mg/dL Total Bilirubin 0.6 (0.2-1.3) mg/dL AST 35 (14-36) IU/L ALT 19 (<35) IU/L Alkaline Phosphatase 93 (38-126) U/L Total Creatine Kinase (30-135) U/L CK-MB (CK-2) CK-MB (CK-2) Rel Index Troponin I (0.01-0.034) ng/mL Total Protein 7.7 (6.3-8.2) g/dL Albumin 4.2 (3.5-5.0) g/dL Globulin 3.5 (1.7-4.1) g/dL Albumin/Globulin Ratio 1.2 (1.0-2.8) Lipase 32 (23-300) U/L Procalcitonin (<0.5) ng/mL Urine RBC (0-5/HPF) Urine WBC (0-5/HPF) Ur Squamous Epith Cells (0-5/HPF) Urine Bacteria (None) Ur Culture Indicated? COVID-19 PCR (Negative) Blood Type Antibody Screen 04/30/20 04/30/20 04/30/20 Range/Units 16:15 16:16 18:15 WBC (4.5-11.0) X10^3/uL RBC (4.0-5.2) X10^6/uL Hgb (12.0-16.0) g/dL Hct (36-46) % MCV (80-100) fL MCH (26-34) PG MCHC (30-36) % RDW (11.6-14.8) % Plt Count (150-400) X10^3/uL Neut % (Auto) (50-75) % Lymph % (Auto) (25-40) % [place] % (Auto) (3-14) % Eos % (Auto) (2-4) % Baso % (Auto) (0-2) % Neut # (Auto) (8120-9587) /uL Lymph # (Auto) (9848-8718) /uL [place] # (Auto) (0-900) /uL Eos # (Auto) (0-450) /uL Baso # (Auto) (0-100) /uL PT (10.1-12.7) SECONDS INR (0.9-1.3) Sodium (137-145) mmol/L Potassium (3.4-5.1) mmol/L Chloride (98-107) mmol/L Carbon Dioxide (22-32) mmol/L BUN (7-17) mg/dL Creatinine (0.52-1.04) mg/dL Estimated GFR (>60) mL/min BUN/Creatinine Ratio (6-22) Glucose (80-110) mg/dL Lactate (0.7-2.1) mmol/L Calcium (8.4-10.2) mg/dL Total Bilirubin (0.2-1.3) mg/dL AST (14-36) IU/L ALT (<35) IU/L Alkaline Phosphatase (38-126) U/L Total Creatine Kinase 31 (30-135) U/L CK-MB (CK-2) TNP CK-MB (CK-2) Rel Index TNP Troponin I < 0.012 (0.01-0.034) ng/mL Total Protein (6.3-8.2) g/dL Albumin (3.5-5.0) g/dL Globulin (1.7-4.1) g/dL Albumin/Globulin Ratio (1.0-2.8) Lipase (23-300) U/L Procalcitonin (<0.5) ng/mL Urine RBC (0-5/HPF) Urine WBC (0-5/HPF) Ur Squamous Epith Cells (0-5/HPF) Urine Bacteria (None) Ur Culture Indicated? COVID-19 PCR Negative (Negative) Blood Type O Positive Antibody Screen Negative Point of care testing: Urine Dip Bedside Urine Glucose Negative Bedside Urine Bilirubin - Negative Bedside Urine Ketone - Negative Urine Specific [place] 1.015 Bedside Urine Occult Blood + Bedside Urine pH 6.0 Bedside Urine Protein - Negative Bedside Urine Urobilinogen - Negative Bedside Urine Nitrite + Positive Bedside Urine Leukocytes +/- [address] scan - abdomen/pelvis: Radiologist's Impression: [address] [address] [address] Scan Report Signed Patient: Keeley Diaz [facility]#: [id number] : 3Acct:[id number] Age/Sex: 75 / FDate of Service: 04/30/20 Loc: ED Accession Number: [id number] Procedure: CT abdomen pelvis w con Ordering Provider: Caesar Hawkins PROCEDURE: CT ABDOMEN PELVIS W CON INDICATIONS: RLQ pain, hx diverticulitis in left quad, appy? TECHNIQUE: After the administration of intravenous contrast, 5 mm thick sections acquired from the diaphragm to the symphysis. 5 mm coronal and sagittal reformats were acquired. For radiation dose reduction, the following was used: automated exposure control, adjustment of mA and/or kV according to patient size. COMPARISON: [facility], CT, CT ABDOMEN PELVIS W CON, 05/15/2019, 17:09. FINDINGS: Image quality: Excellent. ABDOMEN: Lung bases: There is mild atelectasis and scarring in the lung bases. Heart size is enlarged. There is a minimal amount of pericardial fluid redemonstrated. There are pacemaker leads extending into the right atrium, right ventricle, and coronary sinus. There is a small hiatal hernia. Solid organs: Evaluation of the liver demonstrates no focal hepatic lesions. The gallbladder appears within normal limits without calcified gallstones. Biliary system is non-dilated. Pancreas enhances normally. No peripancreatic fat stranding or fluid collections. No pancreatic duct dilatation. The spleen is normal in size. No adrenal nodules. Kidneys demonstrate no hydronephrosis. Peritoneum and bowel: Small bowel loops demonstrate normal wall thickness and caliber. The appendix is normal in appearance. There is partial herniation of the cecum into a small right inguinal hernia. There is mild bowel wall thickening within the inguinal canal with minimal fat stranding. Findings are suggestive of bowel incarceration with possible developing strangulation. No associated bowel obstruction. There is also herniation of a short segment of small bowel into a left inguinal hernia without associated bowel wall thickening. No associated bowel obstruction. There is colonic diverticulosis without acute diverticulitis. No free fluid or air. Nodes and vessels: No retroperitoneal or mesenteric adenopathy by size criteria. Aorta and inferior vena cava are normal in size. Miscellaneous: No ventral hernias. PELVIS: Genitourinary: The urinary bladder is partially distended. There is a small focus of gas within the bladder. Miscellaneous: No inguinal adenopathy. Bones: No suspicious bony lesions. No vertebral body compression fractures. IMPRESSION: 1. No evidence of appendicitis. 2. Partial herniation of the cecum into a small right inguinal hernia with as sociated mild bowel wall thickening in the inguinal canal. The findings are suggestive of bowel incarceration with possible developing strangulation. No associated bowel obstruction. 3. Herniation of a short segment of small bowel into a small left inguinal hernia without associated bowel wall thickening or obstruction. Findings discussed with JAS Esparza on April 30, 2020 at 5:55 p.m.. 4. Colonic diverticulosis without acute diverticulitis. 5. Minimal pericardial effusion. 6. Small focus of gas within the bladder is nonspecific and may be associated with prior catheterization or reflect infection from a gas-forming organism. Recommend correlation clinically. Dictated by: Ravi Camarena M.D. on 04/30/2020 at 17:51 Approved by: Ravi Camarena M.D. on 04/30/2020 at 17:59 ECG Data Attestation: I personally reviewed and interpreted this ECG as follows: Prior ECG tracings: available for review Interpretation: Sinus rhythm with occasional ventricular paced complexes rate at 69. Left [place] deviation. OK interval 128, QRS Dur duration 172, QT/QTC 510/564 Unspecific intraventricular block. No acute ST changes. Previous EKG shows atrial rhythm rate at 56 MDM Narrative Medical decision making narrative: This is a 75 year old female who presents to ED with acute onset of RLQ pain that started at 0930 this am without other associated symptoms such as nausea, vomiting, fever, chills, diarrhea. Reports no previous history of abdominal surgeries but has significant cardiac history. Patient was recommended to come in to ED for an evaluation after she was evaluated by Dr. Spring at the office today for possible surgical abdomen. Physical exam is positive for Rovsing sign and localized tenderness to palpate in RLQ. No leukocytosis. Stable H&H of 13.8/41.6. INR 3.1 with PT of 35.7. Of 24 and BUN/creatinine ratio 32.4 with normal creatinine and estimated GFR. Normal liver function test and lipase. Normal procalcitonin and lactate of 0.7. No s igns of sepsis with stable vital signs. Patient afebrile. Cardiac enzymes are negative. Urine POC test shows positive for urine nitrites with small amount of leukoesterase. Micro urine test shows WBC of 5.10 with many bacteria and squamous epithelia cells. Patient reports was unable to provide midstream urine sample. The patient does not have acute urinary symptoms and will wait for culture to be back before treating patient with antibiotic medication. Abdominal CT indicates no evidence of appendicitis. Partial herniation of the cecum into of small right inguinal hernia with associated mild bowel wall thickening in the inguinal canal, suggestive of bowel incarceration with possible developing strangulation. No bowel obstruction appreciated. Herniation of a short segment of small bowel in to us small left inguinal hernia without thickening or obstruction. Colonic diverticulosis without acute diverticulitis. Minimal pericardial effusion. Small focus of gas within the bladder which is nonspecific. Dr. Castañeda was contacted at 6:00 p.m and consulted for surgical intervention. Dr. Naik accepted the patient's care under medical service since the patient has extensive cardiac history. Patient will be taken to OR after anticoagulation was reversed with FFP and when INR reaches at 1.5. Will recheck INR post 1 hour transfusion of 2nd FFP pack. The patient signed out to Dr. Gallegos for continuation of care and reports and plan discussed. <Juanjose Gallegos MD - Last Filed: 05/01/20 00:41> Lab Data Labs: Lab Results 04/30/20 04/30/20 04/30/20 Range/Units 16:03 16:15 16:15 WBC 4.6 (4.5-11.0) X10^3/uL RBC 3.96 L (4.0-5.2) X10^6/uL Hgb 13.8 (12.0-16.0) g/dL Hct 41.6 (36-46) % MCV 105.2 H (80-100) fL MCH 34.8 H (26-34) PG MCHC 33.1 (30-36) % RDW 14.4 (11.6-14.8) % Plt Count 176 (150-400) X10^3/uL Neut % (Auto) 54.4 (50-75) % Lymph % (Auto) 28.4 (25-40) % [place] % (Auto) 11.2 (3-14) % Eos % (Auto) 5.2 H (2-4) % Baso % (Auto) 0.8 (0-2) % Neut # (Auto) 2500 (3694-5257) /uL Lymph # (Auto) 1300 (1878-0587) /uL [place] # (Auto) 500 (0-900) /uL Eos # (Auto) 200 (0-450) /uL Baso # (Auto) 0 (0-100) /uL PT (10.1-12.7) SECONDS INR (0.9-1.3) Sodium (137-145) mmol/L Potassium (3.4-5.1) mmol/L Chloride (98-107) mmol/L Carbon Dioxide (22-32) mmol/L BUN (7-17) mg/dL Creatinine (0.52-1.04) mg/dL Estimated GFR (>60) mL/min BUN/Creatinine Ratio (6-22) Glucose (80-110) mg/dL Lactate (0.7-2.1) mmol/L Calcium (8.4-10.2) mg/dL Total Bilirubin (0.2-1.3) mg/dL AST (14-36) IU/L ALT (<35) IU/L Alkaline Phosphatase (38-126) U/L Total Creatine Kinase (30-135) U/L CK-MB (CK-2) CK-MB (CK-2) Rel Index Troponin I (0.01-0.034) ng/mL Total Protein (6.3-8.2) g/dL Albumin (3.5-5.0) g/dL Globulin (1.7-4.1) g/dL Albumin/Globulin Ratio (1.0-2.8) Lipase (23-300) U/L Procalcitonin < 0.05 (<0.5) ng/mL Urine RBC 1-5/hpf (0-5/HPF) Urine WBC 5-10/hpf H (0-5/HPF) Ur Squamous Epith Cells 10-30 /hpf H (0-5/HPF) Urine Bacteria Many (>30) H (None) Ur Culture Indicated? Cult not indicated COVID-19 PCR (Negative) Blood Type Antibody Screen 04/30/20 04/30/20 04/30/20 Range/Units 16:15 16:15 16:15 WBC (4.5-11.0) X10^3/uL RBC (4.0-5.2) X10^6/uL Hgb (12.0-16.0) g/dL Hct (36-46) % MCV (80-100) fL MCH (26-34) PG MCHC (30-36) % RDW (11.6-14.8) % Plt Count (150-400) X10^3/uL Neut % (Auto) (50-75) % Lymph % (Auto) (25-40) % [place] % (Auto) (3-14) % Eos % (Auto) (2-4) % Baso % (Auto) (0-2) % Neut # (Auto) (7736-6286) /uL Lymph # (Auto) (8961-4761) /uL [place] # (Auto) (0-900) /uL Eos # (Auto) (0-450) /uL Baso # (Auto) (0-100) /uL PT 35.7 H (10.1-12.7) SECONDS INR 3.1 H (0.9-1.3) Sodium 139 (137-145) mmol/L Potassium 4.1 (3.4-5.1) mmol/L Chloride 100 (98-107) mmol/L Carbon Dioxide 34 H (22-32) mmol/L BUN 24 H (7-17) mg/dL Creatinine 0.74 (0.52-1.04) mg/dL Estimated GFR > 60.0 (>60) mL/min BUN/Creatinine Ratio 32.4 H (6-22) Glucose 99 (80-110) mg/dL Lactate 0.7 (0.7-2.1) mmol/L Calcium 8.9 (8.4-10.2) mg/dL Total Bilirubin 0.6 (0.2-1.3) mg/dL AST 35 (14-36) IU/L ALT 19 (<35) IU/L Alkaline Phosphatase 93 (38-126) U/L Total Creatine Kinase (30-135) U/L CK-MB (CK-2) CK-MB (CK-2) Rel Index Troponin I (0.01-0.034) ng/mL Total Protein 7.7 (6.3-8.2) g/dL Albumin 4.2 (3.5-5.0) g/dL Globulin 3.5 (1.7-4.1) g/dL Albumin/Globulin Ratio 1.2 (1.0-2.8) Lipase 32 (23-300) U/L Procalcitonin (<0.5) ng/mL Urine RBC (0-5/HPF) Urine WBC (0-5/HPF) Ur Squamous Epith Cells (0-5/HPF) Urine Bacteria (None) Ur Culture Indicated? COVID-19 PCR (Negative) Blood Type Antibody Screen 04/30/20 04/30/20 04/30/20 Range/Units 16:15 16:16 18:15 WBC (4.5-11.0) X10^3/uL RBC (4.0-5.2) X10^6/uL Hgb (12.0-16.0) g/dL Hct (36-46) % MCV (80-100) fL MCH (26-34) PG MCHC (30-36) % RDW (11.6-14.8) % Plt Count (150-400) X10^3/uL Neut % (Auto) (50-75) % Lymph % (Auto) (25-40) % [place] % (Auto) (3-14) % Eos % (Auto) (2-4) % Baso % (Auto) (0-2) % Neut # (Auto) (8905-8786) /uL Lymph # (Auto) (4288-7058) /uL [place] # (Auto) (0-900) /uL Eos # (Auto) (0-450) /uL Baso # (Auto) (0-100) /uL PT (10.1-12.7) SECONDS INR (0.9-1.3) Sodium (137-145) mmol/L Potassium (3.4-5.1) mmol/L Chloride (98-107) mmol/L Carbon Dioxide (22-32) mmol/L BUN (7-17) mg/dL Creatinine (0.52-1.04) mg/dL Estimated GFR (>60) mL/min BUN/Creatinine Ratio (6-22) Glucose (80-110) mg/dL Lactate (0.7-2.1) mmol/L Calcium (8.4-10.2) mg/dL Total Bilirubin (0.2-1.3) mg/dL AST (14-36) IU/L ALT (<35) IU/L Alkaline Phosphatase (38-126) U/L Total Creatine Kinase 31 (30-135) U/L CK-MB (CK-2) TNP CK-MB (CK-2) Rel Index TNP Troponin I < 0.012 (0.01-0.034) ng/mL Total Protein (6.3-8.2) g/dL Albumin (3.5-5.0) g/dL Globulin (1.7-4.1) g/dL Albumin/Globulin Ratio (1.0-2.8) Lipase (23-300) U/L Procalcitonin (<0.5) ng/mL Urine RBC (0-5/HPF) Urine WBC (0-5/HPF) Ur Squamous Epith Cells (0-5/HPF) Urine Bacteria (None) Ur Culture Indicated? COVID-19 PCR Negative (Negative) Blood Type O Positive Antibody Screen Negative Point of care testing: Urine Dip Bedside Urine Glucose Negative Bedside Urine Bilirubin - Negative Bedside Urine Ketone - Negative Urine Specific [place] 1.015 Bedside Urine Occult Blood + Bedside Urine pH 6.0 Bedside Urine Protein - Negative Bedside Urine Urobilinogen - Negative Bedside Urine Nitrite + Positive Bedside Urine Leukocytes +/- 15 Esterase Discharge Plan Departure Admit Date/Time: 04/30/20 19:21 Admit Provider: Evan Naik <Juanjose Gallegos MD - Last Filed: 05/01/20 00:41> Sign Out Provider Sign Out Attestation: I personally evaluated and examined the patient and agree with the assessment, treatment plan, and disposition of the patient as recorded by the APC.
[2020-04-30 18:25] LABS: Creatine Kinase 31 U/L (30-135)
[2020-04-30 18:36] LABS: COVID19 -Nasal RAPID Negative (Negative)
[2020-04-30 18:38] LABS: Troponin I < 0.012 ng/mL (0.01-0.034)
--- NOTE | 2020-04-30 19:27 | PC.NURSE ---
Handoff report given to LATOYA Mays
[2020-04-30 23:46] LABS: INR 2.3 (0.9-1.3); Prothrombin Time 26.8 SECONDS (10.1-12.7)
[2020-05-01] VITALS (34 sets, daily range): BP systolic 115–179; BP diastolic 44–99; PULSE 60–132; RESP 10–20; TEMP 36.1–37.5; O2SAT 85–99; BMI 43.9
--- NOTE | 2020-05-01 01:38 | PC.NURSE ---
[employer] note: patient refused to have her admitting blood pressure taken. Nurse aware.
[2020-05-01 02:03] LABS: INR 2.2 (0.9-1.3)
--- NOTE | 2020-05-01 02:10 | PM.HP.1 ---
History of Present Illness History of Present Illness Date Patient Seen: 04/30/20 Time Patient Seen: 23:00 Chief complaint: pain in lower right abdomen Narrative: Keeley Diaz is a 75 y.o. morbidly obese female anticoagulated on warfarin for atrial fibrillation, pacemaker status, chronic heart failure, who presented to the ED with lower abdominal pain in the previous morning. Described as sharp and of and on. Has had some loose stool. She denies fever, chills, nausea or vomiting or history of previous abdominal surgeries. Patient denies dysurea, urgency, frequency, hematuria. Patient denies history of ovarian problems in the past. Denies unusual vaginal discharge or bleeding. She denies chest pain, or dyspnea. Patient reports taking a deep red improves the pain. CT of the abdomen and pelvis reported There is partial herniation of the cecum into a small right inguinal hernia. There is mild bowel wall thickening within the inguinal canal with minimal fat stranding. Findings are suggestive of bowel incarceration with possible developing strangulation. No associated bowel obstruction. There is also herniation of a short segment of small bowel into a left inguinal hernia without associated bowel wall thickening.The consulted with general surgery who would like to have her INR reversed to 1.5. She received 2 units of FFP in the ED and another unit after the 2nd unit of FFP. After the 3rd unit of FFP her INR was still 2.2. We are currently transfusing 1 more unit of FFP and will follow with [address] Castañeda would like to take the patient into the OR to reduce the bowel incarceration and repair the inguinal hernia. She is afebrile, blood pressure 161/67, heart rate of 60, respiratory rate of 18, oxygen saturation of 90% on room air, she weighs 131 kg with a BMI of 43.9. WBC is 4.6, RBC 3.96, hemoglobin 13.8, platelet count of 176, INR was 2.2 down from 2.3 and down from 3.0 on initial presentation, PT is 25 seconds, sodium 139, potassium 4.1, chloride 100, CO2 34, creatinine 0.74, BUN 24, with a GFR of 60, lactate is normal, liver enzymes are also within normal limits, troponin is negative, lipase is 32, procalcitonin 0.5, UA is negative for UTI, COVID-19 is negative. Patient History Medical History (Updated 05/01/20 @ 02:16 by JAS Norman) Afib (Acute) Ataxia (Acute) Chronic heart failure (Chronic) Essential hypertension (Chronic) First degree AV block (Acute) Gout (Acute) Hyperlipidemia (Chronic) Hypertension (Acute) Hypothyroidism (Acute) Left bundle branch block (Acute) Obese (Acute) Pacemaker (Acute) Third degree heart block (Acute) Surgical History (Updated 05/01/20 @ 02:16 by JAS Norman) H/O cardiac radiofrequency ablation (Acute) Status cardiac pacemaker (Chronic) Family & Social History Safety & Behavioral: Feels Safe in Current Yes Environment Been Physically Hurt or No Threatened By a Person Tobacco & Substance use: Smoking Status Never smoker alcohol intake frequency 3 or more drinks per day Substance Use Type does not use Meds Home Medications and Allergies Home Medications Medication Instructions Recorded Confirmed Type omega [id number]-fish oil [Fish Oil] 2 cap PO DAILY #0 08/06/12 05/01/20 History warfarin [Coumadin] See Rx Instructions .ROUTE 08/06/12 05/01/20 History .COMPLEX #0 allopurinol 300 mg PO DAILY 04/30/20 05/01/20 History levothyroxine [Synthroid] 200 mcg PO DAILY 04/30/20 05/01/20 History metoprolol succinate 25 mg PO BID 04/30/20 05/01/20 History sotalol 120 mg PO BID 04/30/20 05/01/20 History torsemide 20 mg PO POSTTR 04/30/20 05/01/20 History warfarin [Jantoven] See Rx Instructions .ROUTE .COMPLEX 04/30/20 05/01/20 History clobetasol 1 applic TOPICAL BID PRN 05/01/20 05/01/20 History colchicine See Rx Instructions .ROUTE 05/01/20 05/01/20 History .COMPLEX PRN lisinopril 2.5 mg PO DAILY 05/01/20 05/01/20 History magnesium oxide 400 mg PO DAILY 05/01/20 05/01/20 History [id number]-[id number] 1 tab PO DAILY 05/01/20 05/01/20 History [Multivitamin 50 Plus] nystatin 1 applic TOPICAL DAILY PRN 05/01/20 05/01/20 History torsemide 10 mg PO DAILY PRN 05/01/20 05/01/20 History Allergies Allergy/AdvReac Type Severity Reaction Status Date / Time amoxicillin [AMOXICILLIN] Allergy Unknown Unverified 11/16/17 13:11 benzocaine [BENZOCAINE] Allergy Unknown Unverified 11/16/17 13:11 cephalexin [CEPHALEXIN] Allergy Unknown Unverified 11/16/17 13:11 metronidazole [METRONIDAZOLE] Allergy Unknown Unverified 11/16/17 13:11 oxycodone Allergy Verified 05/01/20 00:40 Review of Systems Review of Systems ROS: Yes All systems reviewed with the patient and are negative except as otherwise documented Exam Vital Signs (past 8 hours): - 04/30/20 18:56 04/30/20 18:57 04/30/20 19:00 Temperature Pulse Rate 66 66 66 Respiratory Rate 16 Blood Pressure 143/74 H 143/74 H 148/78 H Pulse Oximetry 97 96 97 04/30/20 19:30 04/30/20 20:00 04/30/20 20:30 Temperature Pulse Rate 60 65 65 Respiratory Rate Blood Pressure 132/76 Pulse Oximetry 97 97 96 04/30/20 20:44 04/30/20 20:45 04/30/20 21:00 Temperature 98.4 F Pulse Rate 64 64 64 Respiratory Rate 16 Blood Pressure 164/74 H 164/74 H Pulse Oximetry 96 96 04/30/20 21:02 04/30/20 21:07 04/30/20 21:13 Temperature 98.5 F 98.3 F Pulse Rate 63 64 63 Respiratory Rate 15 17 Blood Pressure 150/73 H 150/73 H 157/75 H Pulse Oximetry 96 04/30/20 21:14 04/30/20 21:27 04/30/20 21:30 Temperature 98.2 F Pulse Rate 63 62 62 Respiratory Rate 17 Blood Pressure 157/75 H 149/67 H Pulse Oximetry 97 97 04/30/20 21:44 04/30/20 22:00 04/30/20 22:30 Temperature Pulse Rate 60 60 60 Respiratory Rate Blood Pressure 149/67 H Pulse Oximetry 95 97 95 04/30/20 23:00 04/30/20 23:01 04/30/20 23:30 Temperature Pulse Rate 60 60 60 Respiratory Rate 18 Blood Pressure 151/70 H Pulse Oximetry 93 94 95 05/01/20 00:00 05/01/20 00:30 05/01/20 00:38 Temperature 97.2 F L 97.9 F Pulse Rate 60 60 60 Respiratory Rate 18 18 19 Blood Pressure 146/70 H 156/73 H 156/73 H Pulse Oximetry 94 93 95 05/01/20 01:00 05/01/20 01:07 05/01/20 01:34 Temperature 97.8 F Pulse Rate 60 60 60 Respiratory Rate 18 18 Blood Pressure 146/63 H 161/67 H Pulse Oximetry 96 97 98 Oxygen Delivery Method Room Air Oxygen Flow Rate 0 Narrative Exam Narrative: Gen: Alert, oriented, morbidly obese 75 y.o. female, appears uncomfortable HEENT: normocephalic, atraumatic, conjunctiva clear, sclera non-icteric, oral mucosa pink and moist Neck: supple, full ROM, no JVD, trachea is midline Resp: Lungs CTA, non-labored breathing CV: RRR, no murmur or rubs Abd: Tender in the lower right quadrant, soft, nondistended, hypoactive BTs Skin: no lesions or rashes, dry and intact Neuro: Alert and oriented X 4 w/no focal deficits. Speech clear and coherent. Extremities: moves all 4 extremities, is ambulatory, negative Abner?s sign Psyche: Anxious and irritable at times. Objective Labs Result Diagrams: 04/30/20 16:15 04/30/20 16:15 Labs: Laboratory Results - last 24 hr 04/30/20 04/30/20 04/30/20 16:03 16:15 16:15 WBC 4.6 RBC 3.96 L Hgb 13.8 Hct 41.6 MCV 105.2 H MCH 34.8 H MCHC 33.1 RDW 14.4 Plt Count 176 Neut % (Auto) 54.4 Lymph % (Auto) 28.4 [place] % (Auto) 11.2 Eos % (Auto) 5.2 H Baso % (Auto) 0.8 Neut # (Auto) 2500 Lymph # (Auto) 1300 [place] # (Auto) 500 Eos # (Auto) 200 Baso # (Auto) 0 PT INR Sodium Potassium Chloride Carbon Dioxide BUN Creatinine Estimated GFR BUN/Creatinine Ratio Glucose Lactate Calcium Total Bilirubin AST ALT Alkaline Phosphatase Total Creatine Kinase CK-MB (CK-2) CK-MB (CK-2) Rel Index Troponin I Total Protein Albumin Globulin Albumin/Globulin Ratio Lipase Procalcitonin < 0.05 Urine RBC 1-5/hpf Urine WBC 5-10/hpf H Ur Squamous Epith Cells 10-30 /hpf H Urine Bacteria Many (>30) H Ur Culture Indicated? Cult not indicated COVID-19 PCR Blood Type Antibody Screen 04/30/20 04/30/20 04/30/20 16:15 16:15 16:15 WBC RBC Hgb Hct MCV MCH MCHC RDW Plt Count Neut % (Auto) Lymph % (Auto) [place] % (Auto) Eos % (Auto) Baso % (Auto) Neut # (Auto) Lymph # (Auto) [place] # (Auto) Eos # (Auto) Baso # (Auto) PT 35.7 H INR 3.1 H Sodium 139 Potassium 4.1 Chloride 100 Carbon Dioxide 34 H BUN 24 H Creatinine 0.74 Estimated GFR > 60.0 BUN/Creatinine Ratio 32.4 H Glucose 99 Lactate 0.7 Calcium 8.9 Total Bilirubin 0.6 AST 35 ALT 19 Alkaline Phosphatase 93 Total Creatine Kinase CK-MB (CK-2) CK-MB (CK-2) Rel Index Troponin I Total Protein 7.7 Albumin 4.2 Globulin 3.5 Albumin/Globulin Ratio 1.2 Lipase 32 Procalcitonin Urine RBC Urine WBC Ur Squamous Epith Cells Urine Bacteria Ur Culture Indicated? COVID-19 PCR Blood Type Antibody Screen 04/30/20 04/30/20 04/30/20 16:15 16:16 18:15 WBC RBC Hgb Hct MCV MCH MCHC RDW Plt Count Neut % (Auto) Lymph % (Auto) [place] % (Auto) Eos % (Auto) Baso % (Auto) Neut # (Auto) Lymph # (Auto) [place] # (Auto) Eos # (Auto) Baso # (Auto) PT INR Sodium Potassium Chloride Carbon Dioxide BUN Creatinine Estimated GFR BUN/Creatinine Ratio Glucose Lactate Calcium Total Bilirubin AST ALT Alkaline Phosphatase Total Creatine Kinase 31 CK-MB (CK-2) TNP CK-MB (CK-2) Rel Index TNP Troponin I < 0.012 Total Protein Albumin Globulin Albumin/Globulin Ratio Lipase Procalcitonin Urine RBC Urine WBC Ur Squamous Epith Cells Urine Bacteria Ur Culture Indicated? COVID-19 PCR Negative Blood Type O Positive Antibody Screen Negative 04/30/20 05/01/20 23:31 01:46 WBC RBC Hgb Hct MCV MCH MCHC RDW Plt Count Neut % (Auto) Lymph % (Auto) [place] % (Auto) Eos % (Auto) Baso % (Auto) Neut # (Auto) Lymph # (Auto) [place] # (Auto) Eos # (Auto) Baso # (Auto) PT 26.8 H D 25.0 H INR 2.3 H 2.2 H Sodium Potassium Chloride Carbon Dioxide BUN Creatinine Estimated GFR BUN/Creatinine Ratio Glucose Lactate Calcium Total Bilirubin AST ALT Alkaline Phosphatase Total Creatine Kinase CK-MB (CK-2) CK-MB (CK-2) Rel Index Troponin I Total Protein Albumin Globulin Albumin/Globulin Ratio Lipase Procalcitonin Urine RBC Urine WBC Ur Squamous Epith Cells Urine Bacteria Ur Culture Indicated? COVID-19 PCR Blood Type Antibody Screen Assessment & Plan Assessment & Plan narrative: Keeley Diaz is admitted as an inpatient for medical management of her presurgical reversal of anticoagulation of warfarin and for medical management of her cardiac conditions. Reversal of INR -She is currently on her 4th unit of FFP. Repeat PT INR is pending -prothrombin complex concentrate is available through our day pharmacy and after discussion with the pharmacy would likely drop her INR lower than desired. Incarcerated bowel, acute, present on admission -Dr. Castañeda consulting and plans to taken to the OR as soon as possible -patient is NPO except ice chips -pain control with Tylenol and ketorolac Essential hypertension, chronic -continue home dose of metoprolol succinate 25 mg p.o. b.i.d., she will receive her 1st dose tonight. -lisinopril 2.5 mg p.o. daily start tomorrow Atrial fibrillation anticoagulated with warfarin -we are currently reversing her INR to prepare her for surgery with a goal INR of 1.5 -patient is rate controlled with metoprolol -continue home dose of sotalol 120 mg p.o. b.i.d. Chronic heart failure unknown if diastolic or systolic -patient is paced as she has a history of third-degree heart block -cardiac telemetry Hypothyroidism, chronic -continue home dose of 200 mcg p.o. daily VTE prophylaxis: Wells risk score: 0 Bilateral SCDs Consults: Dr. Castañeda, consult and involvement is appreciated. Patient is admitted under inpatient status with expected length of stay greater than 2 midnights due to severity of presenting symptoms, risk of adverse event, and complexity of treatment plan. FEN: IV NS at 100 ml/hour, NPO, BMP and magnesium in the am. Dispo: eventual discharge to home Code Status: Full code as discussed with patient COVID-19 COVID-19 status: Negative Result date/Date tested (Pos, Neg/Pending): 04/30/20
--- NOTE | 2020-05-01 02:56 | PC.NURSE ---
Notified patient's RN, Dolly, about order for telemetry at [id number]. She stated she would get it put on as soon as possible when patient is less agitated. Patient admitted into telemetry monitoring system, pending placement on patient.
[2020-05-01] MEDS: SODIUM CHLORIDE 0.9% 1,000 ML 100 ML IV (04:26)
[2020-05-01 04:32] LABS: Prothrombin Time 23.5 SECONDS (10.1-12.7)
[2020-05-01 06:47] LABS: INR 1.8 (0.9-1.3); Prothrombin Time 21.1 SECONDS (10.1-12.7)
--- NOTE | 2020-05-01 06:55 | P.HP_ITS ---
History of Present Illness History of Present Illness Date Patient Seen: 05/01/20 Time Patient Seen: 06:55 Chief complaint: pain in lower right abdomen Narrative: This is a 75-year-old woman seen in consultation for incarcerated right hernia. She developed right lower quadrant pain today in her primary care office was sent to the emergency room had a CT scan that demonstrates the cecum is incarcerated within the right groin. At admission she is afebrile white blood cell count 5. She is anticoagulated on warfarin her initial INR is 3.1 she has received 6 units of FFP overnight it is now 1.8. No nausea vomiting no evidence of bowel obstruction on the imaging. 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 Patient History Medical History Afib (Acute) Ataxia (Acute) Chronic heart failure (Chronic) Essential hypertension (Chronic) First degree AV block (Acute) Gout (Acute) Hyperlipidemia (Chronic) Hypertension (Acute) Hypothyroidism (Acute) Left bundle branch block (Acute) Obese (Acute) Pacemaker (Acute) Third degree heart block (Acute) Surgical History H/O cardiac radiofrequency ablation (Acute) Status cardiac pacemaker (Chronic) Family & Social History Social History: household members spouse Prior Living Arrangements House Safety & Behavioral: Feels Safe in Current Yes Environment Been Physically Hurt or No Threatened By a Person Suicidal Ideation Description None Tobacco & Substance use: Smoking Status Never smoker alcohol intake frequency 3 or more drinks per day Substance Use Type does not use Meds Home Medications and Allergies Home Medications Medication Instructions Recorded Confirmed Type omega [id number]-bcq-kfg-fish oil [Fish Oil] 2 cap PO DAILY #0 08/06/12 05/01/20 History warfarin [Coumadin] See Rx Instructions .ROUTE 08/06/12 05/01/20 History .COMPLEX #0 allopurinol 300 mg PO DAILY 04/30/20 05/01/20 History levothyroxine [Synthroid] 200 mcg PO DAILY 04/30/20 05/01/20 History metoprolol succinate 25 mg PO BID 04/30/20 05/01/20 History sotalol 120 mg PO BID 04/30/20 05/01/20 History torsemide 20 mg PO POSTTR 04/30/20 05/01/20 History warfarin [Jantoven] See Rx Instructions .ROUTE .COMPLEX 04/30/20 05/01/20 History clobetasol 1 applic TOPICAL BID PRN 05/01/20 05/01/20 History colchicine See Rx Instructions .ROUTE 05/01/20 05/01/20 History .COMPLEX PRN lisinopril 2.5 mg PO DAILY 05/01/20 05/01/20 History magnesium oxide 400 mg PO DAILY 05/01/20 05/01/20 History clptktziszfq-eumvwjbc-sibqnm 1 tab PO DAILY 05/01/20 05/01/20 History [Multivitamin 50 Plus] nystatin 1 applic TOPICAL DAILY PRN 05/01/20 05/01/20 History torsemide 10 mg PO DAILY PRN 05/01/20 05/01/20 History Allergies Allergy/AdvReac Type Severity Reaction Status Date / Time amoxicillin [AMOXICILLIN] Allergy Unknown Unverified 11/16/17 13:11 benzocaine [BENZOCAINE] Allergy Unknown Unverified 11/16/17 13:11 cephalexin [CEPHALEXIN] Allergy Unknown Unverified 11/16/17 13:11 metronidazole [METRONIDAZOLE] Allergy Unknown Unverified 11/16/17 13:11 oxycodone Allergy Verified 05/01/20 00:40 Review of Systems Review of Systems Narrative: A 10 point review of systems is negative except as noted in the HPI Exam Vital Signs (past 8 hours): - 04/30/20 23:00 04/30/20 23:01 04/30/20 23:30 Temperature Pulse Rate 60 60 60 Respiratory Rate 18 Blood Pressure 151/70 H Pulse Oximetry 93 94 95 05/01/20 00:00 05/01/20 00:30 05/01/20 00:38 Temperature 97.2 F L 97.9 F Pulse Rate 60 60 60 Respiratory Rate 18 18 19 Blood Pressure 146/70 H 156/73 H 156/73 H Pulse Oximetry 94 93 95 05/01/20 01:00 05/01/20 01:07 05/01/20 01:34 Temperature 97.8 F Pulse Rate 60 60 60 Respiratory Rate 18 18 Blood Pressure 146/63 H 161/67 H Pulse Oximetry 96 97 98 05/01/20 02:54 05/01/20 03:00 05/01/20 03:16 Temperature 97.6 F 97.6 F 97.6 F Pulse Rate 60 60 60 Respiratory Rate 20 16 20 Blood Pressure 133/66 133/60 133/66 Pulse Oximetry 97 05/01/20 03:31 05/01/20 04:32 05/01/20 05:21 Temperature 98.8 F 98.9 F 99.5 F Pulse Rate 60 60 62 Respiratory Rate 20 18 18 Blood Pressure 115/92 H 131/66 135/70 Pulse Oximetry 05/01/20 05:36 05/01/20 05:37 05/01/20 06:14 Temperature 98.2 F 99.0 F 99.0 F Pulse Rate 60 60 60 Respiratory Rate 18 20 20 Blood Pressure 158/80 H 155/90 H 155/90 H Pulse Oximetry 05/01/20 06:41 Temperature 99.2 F Pulse Rate 60 Respiratory Rate 20 Blood Pressure 179/99 H Pulse Oximetry Oxygen Delivery Method Room Air Oxygen Flow Rate 0 Narrative Exam Narrative: General-no acute distress, morbidly obese elderly female HEENT-moist mucous membranes, no scleral icterus Neck-supple, no lymphadenopathy Chest- non labored respirations, clear to auscultation bilaterally Cardiac-regular rate no peripheral edema Abdomen-tender RLQ morbidly obese difficult to discern if there is palpable hernia within the right groin. Extremities-warm, well perfused Neurological-alert and oriented, no focal deficits Objective Labs Result Diagrams: 04/30/20 16:15 04/30/20 16:15 Labs: Laboratory Results - last 24 hr 04/30/20 04/30/20 04/30/20 16:03 16:15 16:15 WBC 4.6 RBC 3.96 L Hgb 13.8 Hct 41.6 MCV 105.2 H MCH 34.8 H MCHC 33.1 RDW 14.4 Plt Count 176 Neut % (Auto) 54.4 Lymph % (Auto) 28.4 Williams % (Auto) 11.2 Eos % (Auto) 5.2 H Baso % (Auto) 0.8 Neut # (Auto) 2500 Lymph # (Auto) 1300 Williams # (Auto) 500 Eos # (Auto) 200 Baso # (Auto) 0 PT INR Sodium Potassium Chloride Carbon Dioxide BUN Creatinine Estimated GFR BUN/Creatinine Ratio Glucose Lactate Calcium Total Bilirubin AST ALT Alkaline Phosphatase Total Creatine Kinase CK-MB (CK-2) CK-MB (CK-2) Rel Index Troponin I Total Protein Albumin Globulin Albumin/Globulin Ratio Lipase Procalcitonin < 0.05 Urine RBC 1-5/hpf Urine WBC 5-10/hpf H Ur Squamous Epith Cells 10-30 /hpf H Urine Bacteria Many (>30) H Ur Culture Indicated? Cult not indicated COVID-19 PCR Blood Type Antibody Screen 04/30/20 04/30/20 04/30/20 16:15 16:15 16:15 WBC RBC Hgb Hct MCV MCH MCHC RDW Plt Count Neut % (Auto) Lymph % (Auto) Williams % (Auto) Eos % (Auto) Baso % (Auto) Neut # (Auto) Lymph # (Auto) Williams # (Auto) Eos # (Auto) Baso # (Auto) PT 35.7 H INR 3.1 H Sodium 139 Potassium 4.1 Chloride 100 Carbon Dioxide 34 H BUN 24 H Creatinine 0.74 Estimated GFR > 60.0 BUN/Creatinine Ratio 32.4 H Glucose 99 Lactate 0.7 Calcium 8.9 Total Bilirubin 0.6 AST 35 ALT 19 Alkaline Phosphatase 93 Total Creatine Kinase CK-MB (CK-2) CK-MB (CK-2) Rel Index Troponin I Total Protein 7.7 Albumin 4.2 Globulin 3.5 Albumin/Globulin Ratio 1.2 Lipase 32 Procalcitonin Urine RBC Urine WBC Ur Squamous Epith Cells Urine Bacteria Ur Culture Indicated? COVID-19 PCR Blood Type Antibody Screen 04/30/20 04/30/20 04/30/20 16:15 16:16 18:15 WBC RBC Hgb Hct MCV MCH MCHC RDW Plt Count Neut % (Auto) Lymph % (Auto) Williams % (Auto) Eos % (Auto) Baso % (Auto) Neut # (Auto) Lymph # (Auto) Williams # (Auto) Eos # (Auto) Baso # (Auto) PT INR Sodium Potassium Chloride Carbon Dioxide BUN Creatinine Estimated GFR BUN/Creatinine Ratio Glucose Lactate Calcium Total Bilirubin AST ALT Alkaline Phosphatase Total Creatine Kinase 31 CK-MB (CK-2) TNP CK-MB (CK-2) Rel Index TNP Troponin I < 0.012 Total Protein Albumin Globulin Albumin/Globulin Ratio Lipase Procalcitonin Urine RBC Urine WBC Ur Squamous Epith Cells Urine Bacteria Ur Culture Indicated? COVID-19 PCR Negative Blood Type O Positive Antibody Screen Negative 09/23/20 09/24/20 09/24/20 23:31 01:46 04:15 WBC RBC Hgb Hct MCV MCH MCHC RDW Plt Count Neut % (Auto) Lymph % (Auto) Williams % (Auto) Eos % (Auto) Baso % (Auto) Neut # (Auto) Lymph # (Auto) Williams # (Auto) Eos # (Auto) Baso # (Auto) PT 26.8 H D 25.0 H 23.5 H INR 2.3 H 2.2 H 2.0 H Sodium Potassium Chloride Carbon Dioxide BUN Creatinine Estimated GFR BUN/Creatinine Ratio Glucose Lactate Calcium Total Bilirubin AST ALT Alkaline Phosphatase Total Creatine Kinase CK-MB (CK-2) CK-MB (CK-2) Rel Index Troponin I Total Protein Albumin Globulin Albumin/Globulin Ratio Lipase Procalcitonin Urine RBC Urine WBC Ur Squamous Epith Cells Urine Bacteria Ur Culture Indicated? COVID-19 PCR Blood Type Antibody Screen 05/01/20 06:30 WBC RBC Hgb Hct MCV MCH MCHC RDW Plt Count Neut % (Auto) Lymph % (Auto) Williams % (Auto) Eos % (Auto) Baso % (Auto) Neut # (Auto) Lymph # (Auto) Williams # (Auto) Eos # (Auto) Baso # (Auto) PT 21.1 H INR 1.8 H Sodium Potassium Chloride Carbon Dioxide BUN Creatinine Estimated GFR BUN/Creatinine Ratio Glucose Lactate Calcium Total Bilirubin AST ALT Alkaline Phosphatase Total Creatine Kinase CK-MB (CK-2) CK-MB (CK-2) Rel Index Troponin I Total Protein Albumin Globulin Albumin/Globulin Ratio Lipase Procalcitonin Urine RBC Urine WBC Ur Squamous Epith Cells Urine Bacteria Ur Culture Indicated? COVID-19 PCR Blood Type Antibody Screen Assessment & Plan Assessment and plan (1) Incarcerated hernia: Status: Acute Assessment & Plan narrative: 75-year-old female morbidly obese with heart block and a pacemaker who is here with a incarcerated right inguinal hernia containing cecum. She is anticoagulated she has been reversed with 6 units of FFP her most recent INR is now 1.8. I told her I recommended we proceed with an open right inguinal hernia repair. Told her there is a possibility that her intestine he is ischemic and if I am unable to adequately inspect her intestine via the hernia repair then she may require a diagnostic laparoscopy possible exploratory laparotomy and bowel resection. We discussed the technical nature of the procedure as well as the associated risks including bleeding infection anastomotic leak hernia recurrence chronic pain. Her questions have been answered she is in agreement with this plan will proceed to the operating room. Quality VTE Deep Vein Thrombosis/Pulmonary Embolism Present on Admission: No
[2020-05-01] MEDS: LACTATED RINGERS 1,000 ML 42 ML IV ×3 (07:00→10:17)
[2020-05-01] MEDS: levoFLOXacin 500 MG/100 ML PIGGYBACK 100 MG IV (07:20)
--- NOTE | 2020-05-01 07:55 | SUR.OPER ---
Supine on padded OR bed, head on pillow, arms secured on padded arm boards at <90 degrees abduction, legs uncrossed, safety belt at thigh, tape over blanket over lower legs.
[2020-05-01] MEDS: BUPIVACAINE 0.25% (PF) VIAL 30 ML INJ (08:37)
--- NOTE | 2020-05-01 09:13 | P.OP_ITS ---
Operative Date/Time/Diagnoses Date of procedure: 05/01/20 Time of procedure: 09:13 Pre-op diagnosis: incacerated right inguinal hernia morbid obesity Post-op diagnosis: same Procedure & Clinicians Procedure: open right inguinal hernia repair with mesh Same procedure as scheduled: Yes Indications: 75-year-old woman with morbid obesity, heart block and anticoagulated is here with an incarcerated right inguinal hernia containing cecum. Surgeon: Mateusz Castañeda Alternative Medicine Practitioner: Alicia Doe Anesthesia Type: General Operative Notes Findings: direct floor defect containing viable bowel Specimen(s): none sent Estimated Blood Loss (mL): 100 Procedure in detail: The patient was placed supine on the table and bilateral lower extremity compression devices were applied. Anesthesia was induced they were intubated with an ETT and received levofloxacin. A time-out was performed. They were prepped and draped in sterile fashion. The right external inguinal ring and the anterior superior iliac crest were identified and marked. 1 finger breath above the inguinal ligament the skin was infiltrated with 0.25% bupivacaine. The skin incision was made here and the subcutaneous tissues were divided with electrocautery exposing the external oblique aponeurosis which was then opened along the direction of its fibers. Using blunt dissection the internal oblique aporneurosis was from the external oblique upper leaflet. A large direct floor defect was identified. I opened the hernia sac and it contained viable intestine. Its content was reduced into the abdomen and the internal oblique aporneuorsis was approximated to the inguinal ligament with Ethibond suture to reapproximate the floor. I selected a 10x 15 cm lightweight Pro Loop hernia mesh. The inferior medial aspect of the mesh was anchored to insertion of the rectus muscle to the pubic tubercle such that there was approximately 2 cm of tubercle overlap with Ethibond suture and then was run along the inferior edge of the mesh to the shelving edge of the inguinal ligament. Interrupted 3 0 Vicryl suture was used to anchor the superior aspect of the mesh to the conjoined tendon in several places. the remainer of the mesh was tucked under the external oblique aponeurosis. The repair was checked for hemostasis. The wound was irrigated with sterile saline. The external oblique aponeurosis was reapproximated in a running fashion using 3 0 Vicryl. The subcutaneous tissues were reapproximated with 3 0 Vicryl skin closed with 4 0 Monocryl followed by the application of Dermabond. At the end of the operation I ensured that both testicles were within the scrotum. The sponge instrument count at the end operation was correct. The patient emerged from anesthesia was extubated and transferred to the postoperative care unit in stable condition. A total of 30 ml of of 0.25% bupivicaine was used to infiltrate the skin. Complications: none Post-operative Condition: stable Disposition: Acute Care Plan for aftercare: may resume anticoagulation 05/03
[2020-05-01] MEDS: fentaNYL 100 MCG/2 ML INJ IV ×2 (10:07→10:16)
--- NOTE | 2020-05-01 10:14 | SUR.PHASEI ---
0943 to PACU from [facility], complaining of RIH pain, hand holding site. Medicated x2 by Dr. Carpenter for pain. Repositioned in bed and HOB elevated. Dozed intermittently. Skin warm and dry. O2 sat 88%, applied O2 4LNP - up to 88-89%; Simple mask- remained in the 80s sat; applied Non-rebreather at 15L; sat up to the mid and upper 90%s.Lip balm applied for c/o dry lips. Patient coughing intermittently; given a pillow to support site. She apologized several times for her complaining, pt supported and encouraged. 1007 IV Rx for pain- see MAR for scores. Hand off to Alberto Parsons RN
[2020-05-01] MEDS: TRAMADOL 50 MG TABLET 100 MG PO (10:26)
[2020-05-01] MEDS: TORSEMIDE 10 MG TABLET 20 MG PO (10:40)
--- NOTE | 2020-05-01 10:44 | P.PN_ITS ---
Subjective Subjective Date Patient Seen: 05/01/20 Interval history: Keeley Diaz is a 75-year-old female with a past medical history significant for hypertension, hyperlipidemia, paroxysmal atrial fibrillation on warfarin third-degree AV heart block, status post pacemaker, and hypothyroidism who presented to the ED with severe right lower quadrant abdominal pain. The patient is lying in bed comfortably and recovering postoperatively from incarcerated hernia repair. She is motivated to recover quickly from the operation and return home as early as feasible. She has mild pain incision site but otherwise just reports a dull ache in her abdomen. She denies shortness of breath, headache, chest pain, nausea, vomiting, fever, chills, dysuri, diarrhea or constipation. Plan to have patient work with physical therapy later this afternoon to assure that she is safe to return home as she has several stairs to ascend to get into her house. She is voiding via Hussein catheter. Exam Vital Signs (past 8 hours): - 05/01/20 10:47 05/01/20 10:57 05/01/20 11:43 Temperature 97.5 F L 97.3 F L 98.5 F Pulse Rate 98 H 60 60 Respiratory Rate 17 16 16 Blood Pressure 166/88 H 126/65 147/62 H Pulse Oximetry 99 95 92 05/01/20 12:25 05/01/20 12:29 05/01/20 13:47 Temperature 98.5 F 97.5 F L 97.5 F L Pulse Rate 60 61 60 Respiratory Rate 16 18 18 Blood Pressure 169/78 H 147/80 H 142/81 H Pulse Oximetry 91 91 94 05/01/20 15:22 Temperature 98.6 F Pulse Rate 69 Respiratory Rate Blood Pressure 163/94 H Pulse Oximetry 90 L Oxygen Delivery Method Room Air Oxygen Flow Rate 2 Narrative Exam Narrative: General: Elderly female sitting in bed and in no acute distress, well- developed, well-nourished, slightly drowsy from anesthesia otherwise appropriately interactive HEENT: Normocephalic, atraumatic. External ears without defect. Pupils equal, round, and reactive to light. Anicteric sclerae, moist conjunctivae, and no lid lag. Oropharynx free of erythema and cobble stoning with moist mucosa. Neck: Supple with full range of motion. No jugular venous distension. No lymphadenopathy or thyromegaly. Cardiovascular: Regular rate and rhythm without murmurs, rubs, or gallops appreciated Pulmonary: Clear to auscultation bilaterally without crackles, wheezes, or rhonchi. Normal respiratory effort with no use of accessory muscles. Abdomen: Soft, obese, bowel sounds present, mild tenderness to palpation around surgical site, nondistended. Surgical site in low right abdomen, slightly under panniculus, with dressings in place C/D/I. Extremities: No clubbing or cyanosis. Trace bipedal edema. Skin: Normal temperature, turgor, and texture; no rash, ulcers, or subcutaneous nodules appreciated. Neurological: Cranial nerves grossly intact. Normal muscle strength, tone, and bulk. Reflexes, coordination, and sensory function within normal limits. No known gait impairment. Psychiatric: Slightly drowsy otherwise Normal mood and affect. Alert and oriented to person, place, and time. Objective Labs Result Diagrams: 04/30/20 16:15 04/30/20 16:15 Labs: Laboratory Results - last 24 hr 04/30/20 04/30/20 05/01/20 16:16 23:31 01:46 PT 26.8 H D 25.0 H INR 2.3 H 2.2 H Blood Type O Positive Antibody Screen Negative 05/01/20 05/01/20 04:15 06:30 PT 23.5 H 21.1 H INR 2.0 H 1.8 H Blood Type Antibody Screen Assessment & Plan Assessment & Plan narrative: Keeley Diaz is a 75-year-old female with a past medical history significant for hypertension, paroxysmal atrial fibrillation on warfarin third-degree AV heart block, status post pacemaker, and hypothyroidism who presented to the ED with severe right lower quadrant abdominal pain. 1. Acute incarcerated right inguinal hernia, status post open right inguinal hernia repair with mesh, present on admission. Active. -Patient presented with severe right lower quadrant abdominal pain. -Initial WBC normal and procalcitonin negative < 0.05. -CT abdomen and pelvis with contrast demonstrated partial herniation of the cecum into a small right inguinal hernia with associated mild bowel wall thickening in the inguinal canal suggestive of bowel incarceration with possible developing strangulation. No evidence of appendicitis or associated bowel obstruction. -Consulted general surgery, Dr. Castañeda, who performed an open repair with mesh on patient's incarcerated right inguinal hernia. Continue postoperative management, pain control and VTE prophylaxis per general surgery. 2. Paroxysmal atrial fibrillation on warfarin, status post reversal of warfarin, acute on chronic, present on admission. Stable. -Patient is followed by Cardiology, Dr. Juarez. -Patient is status post pacemaker implantation for third-degree AV heart block. Patient is aware that double beta-titi is odd but reports that this has controlled her heart rate very well. -Continue home metoprolol succinate 25 mg twice daily and sotalol 120 mg twice daily. -Held warfarin. Initial INR 3.1. Received 6 units FFP to reverse warfarin. INR now 1.8. Continue to hold warfarin and will plan to restart on 05/03 per general surgery recs. Continue to monitor INR daily. 3. Hypertension, chronic, present on admission. Stable. -Continue home lisinopril 2.5 mg daily, metoprolol succinate 25 mg twice daily and sotalol 120 mg twice daily. 4. Congestive heart failure, unknown type, chronic, present on admission. Stable. -Does not represent CHF exacerbation. -Continue to monitor strict I&Os and daily weights. -Discontinued IV fluids postoperatively and restarted home torsemide 20 mg daily to avoid fluid overload. 5. Hypothyroidism, chronic, present on admission. Stable. -TSH normal at 1.56 on 03/27/2020. -Continue home levothyroxine 200 mcg daily. 6. Gout, chronic, present on admission. Stable. -Does not represent acute gouty flare. -Continue home allopurinol 300 mg daily. Code status: Full code VTE prophylaxis: Contraindicated due to surgical repair of incarcerated hernia Disposition: Patient likely discharge home likely tomorrow with home health once she has recovered postoperatively. Quality VTE Deep Vein Thrombosis/Pulmonary Embolism Present on Admission: No
--- NOTE | 2020-05-01 10:53 | SUR.PHASEI ---
Patient noted to have very coarse lung sounds in PACU. States her lungs feel wet. Noted in chart that patient did not receive her torsemide after transfusion this am and has also received 2L fluid in OR. Notified Dr. Perkins of all of this and received order to give torsemide now. Given per order and also updated Dr. Castañeda and receiving Acute Care RN of this.
[2020-05-01] MEDS: METOPROLOL ER 25 MG TABLET PO ×2 (11:51→20:00)
[2020-05-01] MEDS: SOTALOL 80 MG TABLET 120 MG PO ×2 (11:52→20:00)
[2020-05-01] MEDS: LEVOTHYROXINE 100 MCG TABLET 200 MCG PO (11:52)
[2020-05-01] MEDS: lisinopriL 5 MG TABLET 2.5 MG PO (11:53)
[2020-05-01] MEDS: CODEINE/ACETAMINOPHEN 30/300 TABLET 1 TAB PO (13:13)
--- NOTE | 2020-05-01 14:03 | CM.IDA ---
Initial DCP Assessment Note Patient is a 75 yo female, resident of [facility]. Presented w/ severe abd pain and went to the OR this morning for Hernia repair w/Dr Castañeda PCP: Abigail Cruz Payer: MATEO/Gracie Reviewed chart, met w/patient this afternoon to introduce role. Patient admits she is very tired and had a very long day yesterday, kept this visit brief. Patient anticipates she will return home w/no needs from this [employer]. Patient lives w/her SO who is currently in [place], patient's son will make himself available to assist as needed. SO should return very soon (this w/e?) DCP team will follow closely in case DC needs or concerns arise. OMID Lees Discharge Planning/Care Management CM Discharge Assessment Start: 05/01/20 13:27 Freq: Status: Active Protocol: Document 05/01/20 13:27 TROY (Rec: 05/01/20 14:03 TROY [id number]) Discharge Planning Assessment Assigned [employer] OMID Jiménez DPOA/Assigned Designee Name CHAKA Ramey Contact Information [phone] Advance Directives? No History Provided By Patient,Medical Record Prior Living Arrangements House Household Members spouse Type of transportation used prior to Drives own vehicle admit Independent with ADL's Yes Is patient alert and oriented? Yes Barriers to Discharge No Transportation Arrangement Family Referrals Initiated None needed Additional Comment At this time
--- NOTE | 2020-05-01 14:22 | PC.NURSE ---
Patient back to floor around 1130. She has steri strips to r.inner groin from inguinal hernia repair. Just given tylenol with codiene and seems to have been helpful. Patient also has orders for tramadol but this did not seem to be effective for patients pain control. She is a 1 person assist while going to the bathroom, using the commode. Patient is needy but cooperative and pleasant.
--- NOTE | 2020-05-01 15:24 | PT-IP ANOTE ---
Received PT orders and reviewed chart. Pt was in the ED all night and was kept NPO. She had surgery this morning and has been trying unsuccessfully to rest. PT was able to gather and document PLOF but pt politely declined mobility assessment at this time. Will follow up for evaluation 05/02/20.
[2020-05-01] MEDS: SODIUM CHLORIDE 0.9% FLUSH 10 ML IV (20:16)
[2020-05-02 00:42] VITALS: BP 117/62; PULSE 59; RESP 16; TEMP 36.7; O2SAT 95
[2020-05-02 01:40] VITALS: O2SAT 95
[2020-05-02 03:30] VITALS: BP 120/69; PULSE 76; RESP 20; TEMP 36.5; O2SAT 92
[2020-05-02] MEDS: CODEINE/ACETAMINOPHEN 30/300 TABLET 1 TAB PO (06:13)
[2020-05-02] MEDS: LEVOTHYROXINE 100 MCG TABLET 200 MCG PO (06:52)
[2020-05-02 08:32] VITALS: BP 116/58; PULSE 80; RESP 16; TEMP 36.4; O2SAT 92
[2020-05-02] MEDS: SOTALOL 80 MG TABLET 120 MG PO (08:53)
[2020-05-02] MEDS: SODIUM CHLORIDE 0.9% FLUSH 10 ML IV (08:54)
[2020-05-02] MEDS: lisinopriL 5 MG TABLET 2.5 MG PO (08:54)
[2020-05-02] MEDS: METOPROLOL ER 25 MG TABLET PO (08:54)
[2020-05-02 09:00] VITALS: O2SAT 97
--- NOTE | 2020-05-02 09:10 | OT.IP.EVAL ---
Current Diagnoses Unspecified abdominal hernia with obstruction, without gangrene (04/30/20) Surgery Performed Operation Date: 05/01/20 07:15 Actual Procedures p Hernia Repair - Inguinal (Right) - Mateusz Castañeda MD Past Medical History (Last Reviewed 05/01/20 @ 06:57 by Mateusz Castañeda MD) Afib (Acute) Ataxia (Acute) Chronic heart failure (Chronic) Essential hypertension (Chronic) First degree AV block (Acute) Gout (Acute) Hyperlipidemia (Chronic) Hypertension (Acute) Hypothyroidism (Acute) Left bundle branch block (Acute) Obese (Acute) Pacemaker (Acute) Third degree heart block (Acute) Surgical History (Last Reviewed 05/01/20 @ 06:57 by Mateusz Castañeda MD) H/O cardiac radiofrequency ablation (Acute) Status cardiac pacemaker (Chronic) Occupational Therapy Inpatient Evaluation/Re-Eval M1 PT/OT-IP Prior Functional Status Start: 05/01/20 9:10 Freq: NEEDED Status: Active Protocol: Document 05/02/20 11:19 (Rec: 05/02/20 11:35 [id number]) Medical Review Prior Functional Status Medical History Reviewed Yes Communication Pt is an effective verbal communicator. No known deficits. Mobility and Gait Pt had L TKA 1 year ago and has kept up with her maintenance HEP. In addition, she does pool exercise three times per week. She is anticipating scheduling R TKA soon. Due to increased knee pain, she has been using FWW ~ 20% of the time at home and bilateral trekking poles for some community mobility. Activities of Daily Living and IADL's IND with all I/ADL's. 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 Social History Household Members spouse Living Arrangements House Number of Floors (Floors) 3 or More Floors Number of Stairs To Enter/Railing? Pt has 3 CARMEN with left rail and right grab bar ascending. Pt is able to stay on the entry processor if needed with recliner and 1/2 bath available. Shower is upstairs. 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 Her son lives in [place] but plans to be available to provide assistance at discharge along with pt's . M1 PT/OT-IP Prior Functional Status Start: 05/02/20 08:38 Freq: NEEDED Status: Active Protocol: Document 05/02/20 14:36 RM (Rec: 05/02/20 14:46 RM [id number]) Medical Review Prior Functional Status Medical History Reviewed Yes Diet/Fluid Consistency Regular Communication Pt is an effective verbal communicator. No known deficits. Mobility and Gait Pt had L TKA 1 year ago and has kept up with her maintenance HEP. In addition, she does pool exercise three times per week. She is anticipating scheduling R TKA soon. Due to increased knee pain, she has been using FWW ~ 20% of the time at home and bilateral trekking poles for some community mobility. Activities of Daily Living and IADL's IND with all I/ADL's. 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 Social History Household Members spouse Living Arrangements House Number of Floors (Floors) 3 or More Floors Number of Stairs To Enter/Railing? Pt has 3 CARMEN with left rail and right grab bar ascending. Pt is able to stay on the entry processor if needed with recliner and 1/2 bath available. Shower is upstairs. 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 Her son lives in [place] but plans to be available to provide assistance at discharge along with pt's . M2 OT-IP Current Condition Start: 05/02/20 08:38 Freq: Status: Active Protocol: Document 05/02/20 14:36 RM (Rec: 05/02/20 14:46 RM [id number]) Occupational Therapy Current Condition Current Condition Evaluation Date 05/02/20 Treatment Diagnosis incarcerated R inguinal hernia s/p repair with mesh Diagnosis Onset Date 04/30/20 Post Operative Precautions Abdominal Surgery Precautions Log Roll,Lifting Restrictions, Gait Belt above Incisional Area M3 OT- IP Subjective and Pain Start: 05/02/20 08:38 Freq: Status: Active Protocol: Document 05/02/20 14:36 RM (Rec: 05/02/20 14:46 RM [id number]) OT- Subjective Occupational Therapy Visit Type Type Initial Evaluation Visit Start Time 09:10 Visit Stop Time 09:30 Total Visit Minutes 60 Notes Patient seen for 2 sessions: 9:10-9:30 10:00-10:40 Occupational Therapy Visit Comments Patient Comments Patient reports that she feels ready to go home and will have son available for support until her is able to get home from out of town. Patient/Caregiver Goals Return home OT Pain Assessment Pain When Pain Assessed At Rest Pain Present Pain Present Pain Reported Location Right Lower Abdomen Intensity 1 Scale Used Numeric (0 - 10) M4 OT- IP ADL's Start: 05/02/20 08:38 Freq: Status: Active Protocol: Document 05/02/20 14:36 RM (Rec: 05/02/20 14:46 RM [id number]) OT ADL-Grooming General Evaluation Grooming Ability Independent OT ADL-Oral Care General Eval Oral Care Ability Independent OT ADL-Dressing General Eval Upper Body Dressing Ability Independent Lower Body Dressing Ability Independent M6 OT- IP Functional Cognition Start: 05/02/20 08:38 Freq: Status: Active Protocol: Document 05/02/20 14:36 RM (Rec: 05/02/20 14:46 RM [id number]) Cognitive Factors Limiting Selfcare Function Cognitive Ability Level of Alertness Alert Patient Orientation Name,Month,Date,Year,Place, Situation Attention Span Ability Capable of Focused Attention, Capable of Sustained Attention Ability to Follow Commands Able to Follow Multi-Step Commands Memory Description No Deficits Noted Safety Awareness No Deficits Noted Executive Function Ability No Deficits Noted Abstract Thinking Ability No Deficits Noted OT- Vision and Hearing OT- Hearing Assessment OT- Hearing Assessment WFL OT- Vision Assessment Visual Acuity Glasses For Reading M7 OT- IP Mobility and Balance Start: 05/02/20 08:38 Freq: Status: Active Protocol: Document 05/02/20 14:36 RM (Rec: 05/02/20 14:46 RM [id number]) OT- Bed Mobility Assessment Rolling Type of Rolling Log Rolling Level of Assistance Independent Supine to Sit Supine to Sit Assist Independent Sit to Supine Sit to Supine Assist Independent OT-Transfer Assessment Sit to and From Stand Sit to and from Stand Standby Assistance Transfers Transfer Ability Standby Assistance Technique Transfer Destination Bed,Chair Devices Transfer Assistive Devices Front Wheeled Walker OT- Gait Assessment Gait Gait Assistance Required: Standby Assistance Assistive Devices Assistive Device Front Wheeled Walker Comments Gait Ability Comments Able to tolerate functional mobility in her room for ADLs M8 OT- IP Objective Assessments Start: 05/02/20 08:38 Freq: Status: Active Protocol: Document 05/02/20 14:36 RM (Rec: 05/02/20 14:46 RM [id number]) OT Strength Upper Extremity Strength Assessment Within Functional Limits M9 OT- IP Assessment and Plan Start: 05/02/20 08:38 Freq: Status: Active Protocol: Document 05/02/20 14:36 RM (Rec: 05/02/20 14:46 RM [id number]) OT Summary Assessment and Plan Potential Rehabilitation Potential Good Analytic Complexity at Evaluation Low Summary Progress Towards Goals Safe For Discharge Frequency of Treatment Frequency Of Treatment Discharge Discharge Recommendations OT Discharge Recommendations Home with Assistance
--- NOTE | 2020-05-02 09:58 | PM.PN.1 ---
Subjective Subjective Date Patient Seen: 05/02/20 Time Patient Seen: 09:58 Interval history: Patient is 1 day postop open right inguinal hernia repair for incarcerated hernia containing cecum. Today she is resting comfortably in bed with minimal discomfort. She is passing flatus. She has had no bowel movement and has no nausea and no vomiting. Exam Vital Signs (past 8 hours): - 05/02/20 03:30 05/02/20 08:32 Temperature 97.7 F 97.6 F Pulse Rate 76 80 Respiratory Rate 20 16 Blood Pressure 120/69 116/58 L Pulse Oximetry 92 92 Oxygen Delivery Method Nasal Cannula Oxygen Flow Rate 1 Narrative Exam Narrative: Patient is afebrile. She is alert and oriented. Has minimal discomfort. Abdominal exam is soft. Incision is healing nicely with no hematoma and no erythema. Objective Labs Result Diagrams: 04/30/20 16:15 04/30/20 16:15 Assessment & Plan Assessment & Plan narrative: Patient has recovered nicely following repair of an incarcerated right inguinal hernia. She is on the medical service and may be discharged per the hospitalist. Patient has been instructed to do no heavy lifting for 6 or 8 weeks. She may lift up to 15 lb. She may shower. She will resume her pre-admission medications per the medical service. She has an appointment to see her surgeon in 2 weeks. Quality VTE Deep Vein Thrombosis/Pulmonary Embolism Present on Admission: No
--- NOTE | 2020-05-02 11:35 | PT.IIE ---
Current Diagnoses Unspecified abdominal hernia with obstruction, without gangrene (04/30/20) Surgery Performed Operation Date: 05/01/20 07:15 Actual Procedures p Hernia Repair - Inguinal (Right) - Mateusz Castañeda MD Surgical History (Last Reviewed 05/01/20 @ 06:57 by Mateusz Castañeda MD) H/O cardiac radiofrequency ablation (Acute) Status cardiac pacemaker (Chronic) Medical History (Last Reviewed 05/01/20 @ 06:57 by Mateusz Castañeda MD) Afib (Acute) Ataxia (Acute) Chronic heart failure (Chronic) Essential hypertension (Chronic) First degree AV block (Acute) Gout (Acute) Hyperlipidemia (Chronic) Hypertension (Acute) Hypothyroidism (Acute) Left bundle branch block (Acute) Obese (Acute) Pacemaker (Acute) Third degree heart block (Acute) Physical Therapy Inpatient Evaluation/Re-Eval M1 PT/OT-IP Prior Functional Status Start: 05/01/20 13:43 Freq: NEEDED Status: Active Protocol: Document 05/02/20 11:19 (Rec: 05/02/20 11:35 [email or web address]) Medical Review Prior Functional Status Medical History Reviewed Yes Communication Pt is an effective verbal communicator. No known deficits. Mobility and Gait Pt had L TKA 1 year ago and has kept up with her maintenance HEP. In addition, she does pool exercise three times per week. She is anticipating scheduling R TKA soon. Due to increased knee pain, she has been using FWW ~ 20% of the time at home and bilateral trekking poles for some community mobility. Activities of Daily Living and IADL's IND with all I/ADL's. 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 Social History Household Members spouse Living Arrangements House Number of Floors (Floors) 3 or More Floors Number of Stairs To Enter/Railing? Pt has 3 CARMEN with left rail and right grab bar ascending. Pt is able to stay on the entry level marketing representative if needed with recliner and 1/2 bath available. Shower is upstairs. 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 Her son lives in [place] but plans to be available to provide assistance at discharge along with pt's . M1 PT/OT-IP Prior Functional Status Start: 05/02/20 08:38 Freq: NEEDED Status: Active Protocol: Document 05/02/20 11:19 HH (Rec: 05/02/20 11:35 [email or web address]) Medical Review Prior Functional Status Medical History Reviewed Yes Communication Pt is an effective verbal communicator. No known deficits. Mobility and Gait Pt had L TKA 1 year ago and has kept up with her maintenance HEP. In addition, she does pool exercise three times per week. She is anticipating scheduling R TKA soon. Due to increased knee pain, she has been using FWW ~ 20% of the time at home and bilateral trekking poles for some community mobility. Activities of Daily Living and IADL's IND with all I/ADL's. 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 Social History Household Members spouse Living Arrangements House Number of Floors (Floors) 3 or More Floors Number of Stairs To Enter/Railing? Pt has 3 CARMEN with left rail and right grab bar ascending. Pt is able to stay on the entry level marketing representative if needed with recliner and 1/2 bath available. Shower is upstairs. 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 Her son lives in [place] but plans to be available to provide assistance at discharge along with pt's . M2 PT-IP Current Condition Start: 05/01/20 13:43 Freq: NEEDED Status: Active Protocol: Document 05/02/20 11:19 HH (Rec: 05/02/20 11:35 [email or web address]) Physical Therapy Current Condition Current Condition Evaluation Date 05/02/20 Treatment Diagnosis R inguinal hernia repair d/t R lower abdominal pain Onset Date 05/01/20 Precautions Abdominal Surgery Precautions Log Roll,Lifting Restrictions, Gait Belt above Incisional Area Weight Bearing Status Weight Bearing Status Full Weight Bearing M3 PT-IP Subjective Start: 05/01/20 13:43 Freq: NEEDED Status: Active Protocol: Document 05/02/20 11:19 (Rec: 05/02/20 11:35 [email or web address]) Subjective Physical Therapy Visit Type Type Initial Evaluation Visit Start Time 10:10 Visit Stop Time 10:30 Total Visit Minutes 20 Notes Son attended session. Co-tx with MELINA Asher. Physical Therapy Visit Comments Patient Comments I feel a lot better today and i have already used commode this morning Patient Goals to return home with and son. Therapy Pain Assessment Pain When Pain Assessed During Mobility Pain Present Pain Present Pain Reported Location Right Lower Abdomen Intensity 2 Scale Used Numeric (0 - 10) Description Acute Pain Management Techniques Timing of Activity with Medications M4 PT-IP Mobility and Gait Start: 05/01/20 13:43 Freq: NEEDED Status: Active Protocol: Document 05/02/20 11:19 (Rec: 05/02/20 11:35 [email or web address]) PT-Bed Mobility Assessment Rolling Type of Rolling Roll to Left Level of Assist Standby Assistance Supine to Sit Supine to Sit Standby Assistance,Head of Bed Elevated Scooting Scooting to Edge of Bed Standby Assistance PT-Transfer Assessment Sit to and From Stand Sit to and from Stand Standby Assistance,Use of Upper Extremities Equipment Transfer Assistive Device Gait Belt,Front Wheeled Walker Orthotic/Prosthetic Devices or Brace: No Transfers Transfer Destination Bed,Chair Transfer Technique Stand Step Pivot Transfer Ability Level of Assist Standby Assistance,Use of Upper Extremities Comments Mobility Comments Pt was in bed with elevated HOB upon PT arrival. MELINA Asher and Son in the room as well. Pt reported she uses log roll for OOB activity but she prefered to get up from elevated HOB this time for convenience. She initially pivoted her legs to LEOB followed by pushing off through UEs to slowly sit herself up. She then stood up without using AD/ UEs at bedside. Provided pt a FWW after and pt proceed to amb with this PT to sink counter. Pt completed pericare and she was able to stand unsupportedly. She then cont to walk towards the hallway with FWW and completed stair climbing with this PT and son DECORATING MACHINE TENDER. She returned to her room and transferred herself to chair with stand step pivot technique. Pt showed good use of UEs bilaterally on chair armrests to safely descend herself to chair. Call light placed within reach and hand off to OT for cont assessment. Gait Assessment Gait Gait Assistance Required: Standby Assistance Distance (Feet) 60 Able to Maintain Weight Bearing Status Yes During Gait Assistive Devices Assistive Device Gait Belt,Front Wheeled Walker Orthotic/Prosthetic Devices or Brace: No Gait Deviations General Gait Pattern Decreased Stride Length, Decreased Feet Clearance Factors Limiting Gait Function Factors Limiting Gait Function Decreased Activity Tolerance, Decreased Strength,Pain,Poor Balance Comments Gait Comments see mobility comments Stair Climbing Assessment Evaluation Level of Assist On Stairs Minimal Assistance,1 Person Assistance Devices Stair Climbing Assistive Devices Right Railing Technique/Endurance Stair Climbing Direction Ascend and Descend Stair Climbing Technique Step to Step Number of Steps Climbed 3 Query Text: Stair Climbing Set # Repetitions (reps) 2 Comments Stair Climbing Comments Pt stated she usually uses a SPC on L and R rail to ascend and vice versa for descend. She practiced first set with this PT DECORATING MACHINE TENDER on L safely. She led with L for both ascend and descend. Son then also provided DECORATING MACHINE TENDER on pt's L side to ascend and R side to descend after safely. Educated son to also support pt with his other hand on pt's gait belt PT-Balance Assessment Sitting Balance and Reactions Static Sitting Balance Ability Normal Dynamic Sitting Balance Ability Normal Standing Balance and Reactions Static Standing Balance Ability Good Dynamic Standing Balance Ability Good Device Used FWW M5 PT-IP Objective Assessments Start: 05/01/20 13:43 Freq: NEEDED Status: Active Protocol: Document 05/02/20 11:19 (Rec: 05/02/20 11:35 [email or web address]) Orientation Orientation/Cognition Level of Alertness Alert Orientation Name,Age,Birthday,Month,Date, Year,Day of Week,Place, Situation Language Function Ability No Deficits Noted Safety Awareness Understands Safety Issues Memory Description No Deficits Noted Gross Range of Motion Upper Extremity ROM Assessment Within Functional Limits Lower Extremity ROM Assessment Within Functional Limits Strength Upper Extremity Strength Assessment Within Functional Limits Lower Extremity Strength Assessment Within Functional Limits M6 PT-IP Treatment Start: 05/01/20 13:43 Freq: NEEDED Status: Active Protocol: Document 05/02/20 11:19 (Rec: 05/02/20 11:35 [email or web address]) Physical Therapy Treatment Education Education Provided Precautions,Post-Op Packet, Safety M7 PT-IP Assessment and Plan Start: 05/01/20 13:43 Freq: NEEDED Status: Active Protocol: Document 05/02/20 11:19 (Rec: 05/02/20 11:35 [email or web address]) PT Summary Assessment and Plan Potential Rehabilitation Potential Excellent Status of Condition at Evaluation Stable Summary Impairments Pain,ROM,Strength,Balance,Bed Mobility,Transfers,Gait, Activity Tolerance Progress Towards Goals Safe For Discharge Assessment Summary This is a low complexity evaluation for this 75yo s/p POD1 R inguinal hernia repair d/t R lower abdominal pain. Pt was independent for mobility with hiking sticks/ FWW, and very active who likes to participate pool ex 3x/ week. Upon assessment, pt was able to complete amb with FWW SBA and stair climbing with son DECORATING MACHINE TENDER safely. She has good understanding of post op precautions and good family support at home. She is safe to d/c at this point with son and hsuband assistance. Frequency of Treatment Frequency Of Treatment Discharge Recommendations To Nursing Amount of Assist Needed Standby Assistance Discharge Recommendations PT Discharge Recommendations Home with Assistance Transportation Needs at Discharge Private Vehicle
--- NOTE | 2020-05-02 11:56 | P.DS_ITS ---
History of Present Illness History of Present Illness Chief complaint: pain in lower right abdomen Discharge Providers Provider Date of admission: 04/30/20 19:21 Discharge Date: 05/02/20 Primary care physician: Abigail Davis MD Consults: 04/30/20 23:30 Consult to Physician Routine Comment: Consulting Provider: Mateusz Tovar Reason for consultation: Incarcerated hernia Has provider been notified: Yes 05/01/20 11:23 Consult to Occupational Therapy Evaluate & Treat Comment: Physician Instructions: Evaluate and treat Consult to Physical Therapy Evaluate & Treat Comment: Physician Instructions: Evaluate and Treat Discharge provider: Sheryl Noble DO Summary Hospital Course Discharge Diagnosis: 1. Acute incarcerated right inguinal hernia, status post open right inguinal hernia repair with mesh, present on admission. Active. 2. Paroxysmal atrial fibrillation on warfarin, status post reversal of warfarin, acute on chronic, present on admission. Stable. 3. Hypertension, chronic, present on admission. Stable. 4. Congestive heart failure, unknown type, chronic, present on admission. Stable. 5. Hypothyroidism, chronic, present on admission. Stable. 6. Gout, chronic, present on admission. Stable. 7. Asymptomatic bacteriuria, chronic, present on admission. Stable. Hospital Course: Keeley Diaz is a 75-year-old female with a past medical history significant for hypertension, paroxysmal atrial fibrillation on warfarin third-degree AV heart block, status post pacemaker, and hypothyroidism who presented to the ED with severe right lower quadrant abdominal pain. 1. Acute incarcerated right inguinal hernia, status post open right inguinal hernia repair with mesh, present on admission. Active. -Patient presented with severe right lower quadrant abdominal pain. -Initial WBC normal and procalcitonin negative < 0.05. -CT abdomen and pelvis with contrast demonstrated partial herniation of the cecum into a small right inguinal hernia with associated mild bowel wall thicke maude in the inguinal canal suggestive of bowel incarceration with possible developing strangulation. No evidence of appendicitis or associated bowel obstruction. -Consulted general surgery, Dr. Tovar, who performed an open repair with mesh on patient's incarcerated right inguinal hernia. Continue postoperative management, pain control and VTE prophylaxis per general surgery. 2. Paroxysmal atrial fibrillation on warfarin, status post reversal of warfarin, acute on chronic, present on admission. Stable. -Patient is followed by Cardiology, Dr. Juarez. -Patient is status post pacemaker implantation for third-degree AV heart block. Patient is aware that double beta-titi is odd but reports that this has controlled her heart rate very well. -Continued home metoprolol succinate 25 mg twice daily and sotalol 120 mg twice daily. -Held warfarin. Initial INR 3.1. Received 6 units FFP to reverse warfarin. INR now 1.8. Continued to hold warfarin and instructed to restart on 05/03 per general surgery recs. Continued to monitor INR daily. 3. Hypertension, chronic, present on admission. Stable. -Continued home lisinopril 2.5 mg daily, metoprolol succinate 25 mg twice daily and sotalol 120 mg twice daily. 4. Congestive heart failure, unknown type, chronic, present on admission. St able. -Does not represent CHF exacerbation. -Continued to monitor strict I&Os and daily weights. -Discontinued IV fluids postoperatively and restarted home torsemide 20 mg daily to avoid fluid overload. 5. Hypothyroidism, chronic, present on admission. Stable. -TSH normal at 1.56 on 03/27/2020. -Continued home levothyroxine 200 mcg daily. 6. Gout, chronic, present on admission. Stable. -Does not represent acute gouty flare. -Continued home allopurinol 300 mg daily. 7. Asymptomatic bacteriuria, chronic, present on admission. Stable. -Patient denies genitourinary symptoms such as dysuria, urinary hesitancy, frequency or urgency. 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 HEENT: Normocephalic, atraumatic. External ears without defect. Pupils equal, round, and reactive to light. Anicteric sclerae, moist conjunctivae, and no lid lag. Oropharynx free of erythema and cobble stoning with moist mucosa. Neck: Supple with full range of motion. No jugular venous distension. No lym phadenopathy or thyromegaly. Cardiovascular: Regular rate and rhythm without murmurs, rubs, or gallops appreciated Pulmonary: Clear to auscultation bilaterally without crackles, wheezes, or rhonchi. Normal respiratory effort with no use of accessory muscles. Abdomen: Soft, obese, bowel sounds present, mild tenderness to palpation around surgical site, nondistended. Surgical site in low right abdomen under panniculus with dressings in place and without drainage or surrounding erythema or edema. Extremities: No clubbing or cyanosis. Trace bipedal edema. Skin: Normal temperature, turgor, and texture; no rash, ulcers, or subcutaneous nodules appreciated. Neurological: Cranial nerves grossly intact. Normal muscle strength, tone, and bulk. Reflexes, coordination, and sensory function within normal limits. No known gait impairment. Psychiatric: Normal mood and affect. Alert and oriented to person, place, and time. Objective Labs Result Diagrams: 04/30/20 16:15 04/30/20 16:15 Discharge Plan Discharge Plan Patient Disposition: Home Discharge comment: You are being discharged home. You had an incarcerated hernia that has been repaired. Please follow-up with general surgery, Dr. Tovar, in the next 1-2 weeks for postoperative follow-up. You may continue taking Tylenol as needed and as directed on bottle for pain. Have been prescribed small prescriptions of tramadol 100 mg every 6 hours as needed for [id number] pain and Tylenol with codeine 30 mg 1-2 times daily as needed for severe pain. You may restart your warfarin tomorrow and follow-up in coumadin clinic. Continue a regular bowel regimen to avoid constipation with Colace (stool softener) 100 mg twice daily and MiraLax 17 g daily or titrated to effect. Please follow-up with your primary care provider, Dr. Abigail Davis, in the next 1-2 weeks regarding your hospitalization and continued care. Discharge orders & Medications Prescriptions: New acetaminophen-codeine 300-30 mg Tablet 1 tab PO 1-2XD PRN (Reason: Pain, Severe) Qty: 5 RF: 0 tramadol 50 mg Tablet 100 mg PO QID PRN (Reason: Pain, Moderate (4-6)) Qty: 5 RF: 0 docusate sodium [Colace] 100 mg capsule 100 mg PO BID Qty: 60 RF: 0 polyethylene glycol 3350 [Miralax] 17 gram/dose powder 17 gram PO DAILY Qty: 238 RF: 0 Continued omega 2-cbi-isu-fish oil [Fish Oil] 1,000 mg (120 mg-180 mg) Capsule 2 cap PO DAILY Qty: 0 RF: 0 warfarin [Coumadin] 7.5 MG tablet See Rx Instructions .ROUTE .COMPLEX Qty: 0 RF: 0 sotalol 120 mg tablet 120 mg PO BID RF: 0 torsemide 20 mg tablet 20 mg PO DAILY RF: 0 warfarin [Jantoven] 5 mg tablet See Rx Instructions .ROUTE .COMPLEX RF: 0 allopurinol 300 mg tablet 300 mg PO DAILY RF: 0 levothyroxine [Synthroid] 200 mcg tablet 200 mcg PO DAILY RF: 0 metoprolol succinate 25 mg tablet extended release 24 hr 25 mg PO BID RF: 0 clobetasol 0.05 % Ointment 1 applic TOPICAL BID PRN (Reason: Skin Irritation) RF: 0 nystatin 100,000 unit/gram Powder 1 applic TOPICAL DAILY PRN (Reason: yeast infection) RF: 0 lisinopril 2.5 mg Tablet 2.5 mg PO DAILY RF: 0 Multivitamin 50 Plus Tablet 1 tab PO DAILY RF: 0 colchicine 0.6 mg Capsule See Rx Instructions .ROUTE .COMPLEX PRN (Reason: Gout) RF: 0 magnesium oxide 400 mg magnesium Tablet 400 mg PO DAILY RF: 0 Follow up/Referrals: Mateusz Tovar MD [Physician] - 2 Weeks (PLEASE CALL DR. TOVAR'S OFFICE TO SCHEDULE AN APPOINTMENT TO BE SEEN IN CLINIC 2 WEEKS.) Abigail Davis MD [Primary Care Provider] - 05/08/20 3:00 pm (appt:05/08 @ 3:[address] davis at [facility] [phone]) Diet/Activity/Treatments Diet: Low-fat, Low-sodium and Low-cholesterol Activity: No heavy lifting for 6-8 weeks, may lift up to 15 pounds. You may shower. Visit Report/Discharge Packet Instructions: DI for Hernia Repair, [facility]: Wound Care Visit Report Forms: Patient Portal/API, Stroke Signs & Symptoms Discharge Data Primary Care Provider: Abigail Davis Discharges patient from system. Discharge Date/Time: 05/02/20 13:03 Quality VTE Deep Vein Thrombosis/Pulmonary Embolism Present on Admission: No
--- NOTE | 2020-05-02 12:56 | PC.NURSE ---
PATIENT'S PAIN IS WELL CONTROLLED. INCISION CDI WITH [employer]ERI'S INSPECTOR AND ADJUSTER GOLF [employer]UB HEAD. CLEARED FOR DC HOME BY PHYSICAL THERAPY. PATIENT AND SON CONFIRM UNDERSTANDING OF ALL DC HOME PAPERWORK. SCRIPTS PROVIDED. VOIDING WITHOUT DIFFICULTY, PASSING FLATUS. LEFT BY WC WITH ALL BELONGINGS AND PAPERWORK IN NO S/SX'S OF DISTRESS, SEAMSTRESS FITTER ESCORT TO VEHICLE.
== END 2020-05-02 13:03 | disposition home or self-care (01) | DRG 351 ==
LOC: ED 15:37 → AC 05-01 02:08
PROVIDERS: Nurse Practitioner Family; Surgery; Admitting Provider Internal Medicine; Emergency Provider Nurse Practitioner Family; PCP Internal Medicine; Referring Provider Nurse Practitioner Family; Visit Provider Internal Medicine
PROC: 0YU50JZ Supplement Right Inguinal Region with Synthetic Substitute, Open Approach (ICD-10-PCS; principal; 2020-05-01 05:45)
DX: K40.30 Unilateral inguinal hernia, with obstruction, without gangrene, not specified as recurrent (principal); Z68.41 Body mass index [BMI] 40.0-44.9, adult; I44.2 Atrioventricular block, complete; E66.01 Morbid (severe) obesity due to excess calories; Z95.0 Presence of cardiac pacemaker; I48.0 Paroxysmal atrial fibrillation; Z79.01 Long term (current) use of anticoagulants; I11.0 Hypertensive heart disease with heart failure; I50.9 Heart failure, unspecified; I44.0 Atrioventricular block, first degree; M10.9 Gout, unspecified; E03.9 Hypothyroidism, unspecified
CPT/HCPCS: 36415; 36430; 49507; 74177; 80053; 81003; 81015; 82550; 83605; 83690; 84145; 84484; 85025; 85610; 86850; 86900; 86901; 86927; 87077; 87086; 87186; 87635; 93005; 93010; 94762; 97161; 97165; 97535; 99232; 99285; C1781; P9016; J0330; J1100; J1956; J2405; J2704; J3010; Q9967

== ENCOUNTER → 2020-09-30 18:47 | Outpatient (ROUT) | payer MEDICARE, OTHER, SELFPAY ==
[2020-05-01 02:21] VITALS: BMI 43.9
[2020-09-30 19:19] LABS: Add Manual Diff / Slide Review NO; Basophils Absolute Auto 0 /uL (0-100); Basophils Percent Auto 1.4 % (0-2); Eosinophils Absolute Auto 100 /uL (0-450); Eosinophils Percent Auto 3.8 % (2-4); Hematocrit 37.6 % (36-46); Hemoglobin 12.1 g/dL (12.0-16.0); Lymphocytes Absolute Auto 1100 /uL (1100-4500); Lymphocytes Percent Auto 39.2 % (25-40); Mean Corpuscular HGB Conc 32.3 % (30-36); Mean Corpuscular Hemoglobin 34.6 PG (26-34); Mean Corpuscular Volume 107.1 fL (80-100); Monocytes Absolute Auto 300 /uL (0-900); Monocytes Percent Auto 12.7 % (3-14); Neutrophils Absolute Auto 1200 /uL (1500-7000); Neutrophils Percent Auto 42.9 % (50-75); Platelet Count 154 X10^3/uL (150-400); Red Blood Cell Count 3.51 X10^6/uL (4.0-5.2); Red Cell Distribution Width 16.5 % (11.6-14.8); White Blood Cell Count 2.7 X10^3/uL (4.5-11.0)
[2020-09-30 19:29] LABS: Alanine Aminotransferase 18 IU/L (<35); Albumin 3.8 g/dL (3.5-5.0); Albumin Globulin Ratio 1.2 (1.0-2.8); Alkaline Phosphatase 93 U/L (38-126); Aspartate Aminotransferase 30 IU/L (14-36); BUN Creatinine Ratio 30.1 (6-22); Bilirubin Total 0.6 mg/dL (0.2-1.3); Blood Urea Nitrogen 22 mg/dL (7-17); Calcium 8.7 mg/dL (8.4-10.2); Chloride 99 mmol/L (98-107); Cholesterol 206 mg/dL (140-199); Estimated Glomerular Filt Rate > 60.0 mL/min (>60); Globulin 3.2 g/dL (1.7-4.1); Glucose 91 mg/dL (80-110); HDL Cholesterol 83 mg/dL (40-60); HEMOLYSIS < 15 (0-50); LDL Cholesterol Calculated 106 mg/dL (<100); Sodium 138 mmol/L (137-145); Triglycerides 85 mg/dL (35-150)
[2020-09-30 19:36] LABS: NT-proBNP (BNP-Adult 18+) 1570 pg/mL (<450)
[2020-09-30 19:38] LABS: Carbon Dioxide 39 mmol/L (22-32)
[2020-09-30 19:59] LABS: TSH w/ Reflex to FT4 6.76 uIU/mL (0.47-4.68)
[2020-09-30 20:28] LABS: Free T4, Direct Thyroxine 1.42 ng/dL (0.78-2.19)
== END ==
PROVIDERS: PCP Internal Medicine; Visit Provider Internal Medicine
DX: I50.22 Chronic systolic (congestive) heart failure (principal); E78.2 Mixed hyperlipidemia
CPT/HCPCS: 80053; 80061; 83880; 84439; 84443; 84550; 85025

== ENCOUNTER → 2020-11-05 14:54 | Outpatient (CLI) | payer MEDICARE, OTHER, SELFPAY ==
[2020-05-01 02:21] VITALS: BMI 43.9
[2020-11-05 16:30] LABS: BUN Creatinine Ratio 28.8 (6-22); Blood Urea Nitrogen 19 mg/dL (7-17); Carbon Dioxide 37 mmol/L (22-32); Chloride 97 mmol/L (98-107); Estimated Glomerular Filt Rate > 60.0 mL/min (>60); Glucose 112 mg/dL (80-110); HEMOLYSIS < 15 (0-50); Magnesium 1.9 mg/dL (1.6-2.3); Potassium 3.6 mmol/L (3.4-5.1); Sodium 138 mmol/L (137-145)
== END ==
PROVIDERS: PCP Internal Medicine; Referring Provider Specialist; Visit Provider Specialist
DX: I50.22 Chronic systolic (congestive) heart failure (principal)
CPT/HCPCS: 36415; 80048; 83735

== ENCOUNTER → 2020-11-10 16:06 | Outpatient (CLI) | payer MEDICARE, OTHER, SELFPAY ==
[2020-05-01 02:21] VITALS: BMI 43.9
--- NOTE | 2020-11-10 16:11 | DI.RAD.S_ITS ---
PROCEDURE: XR CHEST 2V INDICATIONS: SHORTNESS OF BREATH TECHNIQUE: 2 views of the chest were acquired. COMPARISON: [facility], , CHEST 2 VIEW, 08/30/2016, 12:16. FINDINGS: Surgical changes and devices: Pacemaker Lungs and pleura: Lungs are clear. No pleural effusions or pneumothorax. Mediastinum: Mediastinal contours are normal. At least moderate cardiomegaly. Bones and chest wall: No suspicious bony abnormalities. Old L1 compression fracture. Soft tissues appear unremarkable. IMPRESSION: Cardiomegaly. No evidence acute pulmonary process. Dictated by: Fuentes Hay M.D. on 11/10/2020 at 16:31 Approved by: Fuentes Hay M.D. on 11/10/2020 at 16:32
[2020-11-10 16:24] LABS: Add Manual Diff / Slide Review NO; Basophils Absolute Auto 0 /uL (0-100); Basophils Percent Auto 0.7 % (0-2); Eosinophils Absolute Auto 200 /uL (0-450); Eosinophils Percent Auto 4.1 % (2-4); Hematocrit 37.4 % (36-46); Hemoglobin 12.1 g/dL (12.0-16.0); Lymphocytes Absolute Auto 1200 /uL (1100-4500); Lymphocytes Percent Auto 21.9 % (25-40); Mean Corpuscular HGB Conc 32.3 % (30-36); Mean Corpuscular Hemoglobin 34.3 PG (26-34); Mean Corpuscular Volume 106.2 fL (80-100); Monocytes Absolute Auto 800 /uL (0-900); Monocytes Percent Auto 14.1 % (3-14); Neutrophils Absolute Auto 3200 /uL (1500-7000); Neutrophils Percent Auto 59.2 % (50-75); Platelet Count 228 X10^3/uL (150-400); Red Blood Cell Count 3.52 X10^6/uL (4.0-5.2); Red Cell Distribution Width 14.5 % (11.6-14.8); White Blood Cell Count 5.5 X10^3/uL (4.5-11.0)
[2020-11-10 16:47] LABS: NT-proBNP (BNP-Adult 18+) 1210 pg/mL (<450)
== END ==
PROVIDERS: PCP Internal Medicine; Referring Provider Nurse Practitioner; Visit Provider Nurse Practitioner
DX: R06.02 Shortness of breath (principal); R06.2 Wheezing
CPT/HCPCS: 36415; 71046; 83880; 85025

== ENCOUNTER → 2020-11-18 10:30 | Outpatient (CLI) | payer MEDICARE, OTHER, SELFPAY ==
[2020-05-01 02:21] VITALS: BMI 43.9
--- NOTE | 2020-11-18 | DI.RAD.S_ITS ---
PROCEDURE: FL BARIUM SWALLOW INDICATIONS: dysphagia, unspec COMPARISON: [facility], CT, CT ABDOMEN PELVIS W CON, 04/30/2020, 17:09. [facility], US, US VENOUS LOWER EXTREMITY DOPPLER BILATERAL, 11/17/2020, 13:25. FINDINGS: The generator man image demonstrated cardiac pacemaker. Function: There is normal esophageal peristalsis. No elicited gastroesophageal reflux. There is normal transit of a calibrated barium tablet through the esophagus into the stomach. Morphology: There is normal mucosal morphology. No esophageal strictures, extrinsic mass effects, or diverticula. There is a small hiatal hernia. Limited images of the stomach demonstrate normal appearance. IMPRESSION: 1. Small hiatal hernia. 2. No gastroesophageal reflux elicited during the exam. Dictated by: Puja Cardenas M.D. on 11/18/2020 at 12:36 Approved by: Puja Cardenas M.D. on 11/18/2020 at 12:40
== END ==
PROVIDERS: PCP Internal Medicine; Referring Provider Student in an Organized Health Care Education/Training Program; Visit Provider Student in an Organized Health Care Education/Training Program
DX: R13.10 Dysphagia, unspecified (principal); K44.9 Diaphragmatic hernia without obstruction or gangrene; Z95.0 Presence of cardiac pacemaker
CPT/HCPCS: 74220

== ENCOUNTER → 2020-11-27 14:32 | Outpatient (CLI) | payer MEDICARE, OTHER, SELFPAY ==
[2020-05-01 02:21] VITALS: BMI 43.9
--- NOTE | 2020-11-27 | DI.ECHO.S_ITS ---
[place] +---------+ [facility] +---------+ : : [address] : : : : [id number] : : : : Phone: [phone] Echocardiogram Report + + :Name: OLE ORLANDO Study Date: 11/27/2020 Height: 69 in : :[facility] ReadingLocation: Weight: 197 lb : : Gender: Female BSA: 2.1 m2 : :: 1945 Age: 75 yrs BP: 145/72 mmHg: :Reason For Study: SOB : :Ordering Physician: DEMARCO, : :MARY ALICE Ornelas Performed By: Tray Damon : :Referring: MARY ALICE PAL : + + Interpretation Summary 1) Moderately enlarged left ventricle with low normal systolic function (EF 50-55%). 2) Mildly enlarged right ventricle with normal function. 3) Both atria are severely dilated. 4) No significant valvular abnormalities. 5) The right ventricular systolic pressure is estimated to be at least 67 mmHg based on an estimated right atrial pressure of 8 mm Hg. 6) There is a trivial pericardial effusion noted. 7) Compared to the Echo done 10/03/2018, pulmonary hypertension is present on this study. Procedure: A two-dimensional transthoracic echocardiogram with color flow and Doppler was performed. The study quality was technically adequate. Comparison is made with the echocardiogram of 10/03/2018. Left Ventricle: The left ventricle is moderately dilated. Left ventricular wall thickness is normal. The ejection fraction is estimated to be 50-55%. Left ventricular systolic function is low normal. There are no focal wall motion abnormalities. Diastolic parameters suggest a restrictive filling pattern consistent with probable significantly elevated filling pressures. Right Ventricle: The right ventricle is mildly dilated. The right ventricular systolic function is normal. Atria: Both atria are severely dilated. There is a catheter/pacemaker lead seen in the right atrium. There is no Doppler evidence for an interatrial shunt. Mitral Valve: There is mild mitral annular calcification. There is mild mitral regurgitation. Aortic Valve: There is mild aortic valve sclerosis. There is no aortic valve stenosis. There is trace aortic regurgitation. Tricuspid Valve: The tricuspid valve is normal in structure and function. There is mild tricuspid regurgitation. The right ventricular systolic pressure is estimated to be at least 67 mmHg based on an estimated right atrial pressure of 8 mm Hg. Pulmonic Valve: The pulmonic valve is not well seen, but is grossly normal. There is a trace or physiologic amount of pulmonic regurgitation. Great Vessels: The aortic root is normal size. The ascending aorta is at the upper limits of normal in size. The IVC is dilated (diameter is greater than 2.1 cm) yet it collapses greater than 50% with a sniff. This suggests a right atrial pressure of 8 mm Hg. Pericardium/ Pleura There is a trivial pericardial effusion noted. There are no echocardiographic indications of cardiac tamponade. There is no pleural effusion. MMode/2D Measurements & Calculations LVIDd: 6.3 cm LVOT diam: 2.4 cm LVIDs: 4.4 cm Ao root diam: 3.9 cm FS: 30.3 % asc Aorta Diam: 3.7 cm IVSd: 0.95 cm LVPWd: 0.81 cm LV andre. diameter/BSA (cm/m^2): 3.0 LV sys. diameter/BSA (cm/m^2): 2.1 LA dimension: 4.8 cm RA area: 28.6 cm2 LA A2 area: 34.2 cm2 IVC diam: 2.7 cm LA A4 area: 35.6 cm2 LA length (vol): 6.8 cm LA vol: 153.0 ml LA vol index: 74.6 ml/m2 RVD1 (basal): 4.2 cm TAPSE: 2.5 cm Doppler Measurements & Calculations Ao V2 max: 120.5 cm/sec LVOT Max Elliot: 97.5 cm/sec Ao V2 mean: 85.7 cm/sec LV V1 max P.8 mmHg Ao max P.8 mmHg LV V1 VTI: 22.5 cm Ao mean P.3 mmHg MARISABEL(I,D): 3.9 cm2 Ao V2 VTI: 26.1 cm MARISABEL(V,D): 3.6 cm2 sev ratio: 0.86 MARISABEL indexed to BSA (cm^2/m^2): 1.9 MV E max elliot: 110.8 cm/sec TR max elliot: 384.9 cm/sec MV A max elliot: 30.6 cm/sec TR max P.3 mmHg MV E/A: 3.6 PA V2 max: 83.2 cm/sec Med Peak E' Elliot: 6.6 cm/sec PA V2 mean: 57.3 cm/sec E/E' med: 16.7 PA mean P.4 mmHg Lat Peak E' Elliot: 9.4 cm/sec PA pr(Accel): 48.9 mmHg E/E' lat: 11.8 E/e' average: 14.3 MV dec time: 0.16 sec SV(OT): 100.7 ml Reading Physician:04:55 PM
== END ==
PROVIDERS: PCP Internal Medicine; Referring Provider Nurse Practitioner; Visit Provider Nurse Practitioner
DX: I08.1 Rheumatic disorders of both mitral and tricuspid valves (principal); R06.02 Shortness of breath
CPT/HCPCS: 93306

== ENCOUNTER → 2020-12-10 09:36 | Outpatient (CLI) | payer MEDICARE, OTHER, SELFPAY ==
[2020-05-01 02:21] VITALS: BMI 43.9
[2020-12-10 10:24] LABS: Alanine Aminotransferase 23 IU/L (<35); Albumin 3.9 g/dL (3.5-5.0); Albumin Globulin Ratio 1.1 (1.0-2.8); Alkaline Phosphatase 91 U/L (38-126); Aspartate Aminotransferase 35 IU/L (14-36); BUN Creatinine Ratio 29.4 (6-22); Bilirubin Total 0.3 mg/dL (0.2-1.3); Blood Urea Nitrogen 20 mg/dL (7-17); Calcium 9.1 mg/dL (8.4-10.2); Carbon Dioxide 38 mmol/L (22-32); Chloride 100 mmol/L (98-107); Estimated Glomerular Filt Rate > 60.0 mL/min (>60); Globulin 3.4 g/dL (1.7-4.1); Glucose 99 mg/dL (80-110); HEMOLYSIS < 15 (0-50); Potassium 4.4 mmol/L (3.4-5.1); Sodium 141 mmol/L (137-145); Total Protein 7.3 g/dL (6.3-8.2)
[2020-12-12 10:09] LABS: Cholesterol, Total 203 mg/dL (100-199); HDL-Cholesterol 70 mg/dL (>39); HDL-Particle (Total) 30.6 umol/L (>=30.5); LDL Particle 1100 nmol/L (<1000); LDL Size 21.3 nm (>20.5); LDL-Cholsterol 119 mg/dL (0-99); LP-IR Score 47 (<=45); Small LDL- Particle <90 nmol/L (<=527); Triglycerides 78 mg/dL (0-149)
== END ==
PROVIDERS: PCP Internal Medicine; Referring Provider Specialist; Visit Provider Specialist
DX: I48.0 Paroxysmal atrial fibrillation (principal); E78.00 Pure hypercholesterolemia, unspecified
CPT/HCPCS: 36415; 80053; 80061; 83704; 83735

== ENCOUNTER → 2020-12-22 13:29 | Outpatient (CLI) | payer MEDICARE, OTHER, SELFPAY ==
[2020-05-01 02:21] VITALS: BMI 43.9
[2020-12-22 13:59] LABS: COVID19 -Nasal RAPID Negative (Negative)
== END ==
PROVIDERS: PCP Internal Medicine; Visit Provider Surgery
DX: Z20.822 Contact with and (suspected) exposure to COVID-19 (principal)
CPT/HCPCS: 87635; C9803

== ENCOUNTER 2020-12-23 09:15 | Day surgery (SDC) | payer MEDICARE, OTHER, SELFPAY ==
[2020-05-01 02:21] VITALS: BMI 43.9
[2020-12-23] VITALS (8 sets, daily range): BP systolic 121–153; BP diastolic 57–79; PULSE 51–92; RESP 13–20; TEMP 36.2–36.6; O2SAT 92–99; BMI 43.8
[2020-12-23] MEDS: GABAPENTIN 300 MG CAPSULE PO (09:48)
[2020-12-23] MEDS: ACETAMINOPHEN 325 MG TABLET 975 MG PO (09:48)
[2020-12-23] MEDS: LACTATED RINGERS 1,000 ML 100 ML IV (10:03)
--- NOTE | 2020-12-23 10:24 | PM.HP.1 ---
History of Present Illness History of Present Illness Date Patient Seen: 12/23/20 Time Patient Seen: 10:24 Chief complaint: SDC Narrative: 75-year-old woman here for elective open left inguinal hernia repair. She has held her warfarin for 5 days prior to the operation. No changes in her health status. Patient History Medical History Afib Ataxia Chronic heart failure Essential hypertension First degree AV block Gout Hyperlipidemia Hypertension Hypothyroidism Left bundle branch block Obese Pacemaker Third degree heart block Surgical History H/O cardiac radiofrequency ablation H/O knee surgery Status cardiac pacemaker Family & Social History Social History: household members spouse Tobacco & Substance use: Smoking Status Never smoker alcohol intake current alcohol intake frequency 3 or more drinks per day Substance Use Type does not use Meds Home Medications and Allergies Home Medications Medication Instructions Recorded Confirmed Type omega 5-tku-dvd-fish oil [Fish Oil] 2 cap PO DAILY #0 08/06/12 12/23/20 History allopurinol 300 mg PO DAILY 04/30/20 12/23/20 History levothyroxine [Synthroid] 200 mcg PO DAILY 04/30/20 12/23/20 History sotalol 120 mg PO BID 04/30/20 12/23/20 History torsemide 20 mg PO DAILY 04/30/20 12/23/20 History warfarin [Jantoven] See Rx Instructions .ROUTE .COMPLEX 04/30/20 12/23/20 History Multivitamin 50 Plus 1 tab PO DAILY 05/01/20 12/23/20 History clobetasol 1 applic TOPICAL BID PRN 05/01/20 12/23/20 History colchicine See Rx Instructions .ROUTE 05/01/20 12/23/20 History .COMPLEX PRN magnesium oxide 400 mg PO DAILY 05/01/20 12/23/20 History nystatin 1 applic TOPICAL DAILY PRN 05/01/20 12/23/20 History docusate sodium [Colace] 100 mg PO BID #60 cap 05/02/20 12/23/20 Rx polyethylene glycol 3350 [Miralax] 17 gram PO DAILY #238 gram 05/02/20 12/23/20 Rx metoprolol succinate 25 mg 25 mg PO TID tab 10/09/20 12/23/20 History tablet,extended release 24 hr Allergies Allergy/AdvReac Type Severity Reaction Status Date / Time amoxicillin [AMOXICILLIN] Allergy Unknown Verified 10/09/20 09:06 benzocaine [BENZOCAINE] Allergy Unknown Verified 10/09/20 09:06 celecoxib [From Celebrex] Allergy Unknown Verified 12/23/20 09:47 cephalexin [CEPHALEXIN] Allergy Unknown Verified 10/09/20 09:06 fluconazole Allergy Unknown Verified 12/23/20 09:47 metronidazole [METRONIDAZOLE] Allergy Unknown Verified 10/09/20 09:06 moxifloxacin Allergy Unknown Verified 12/23/20 09:47 penicillin V Allergy Unknown Verified 12/23/20 09:47 sodium chloride Allergy Unknown Verified 12/23/20 09:47 oxycodone Allergy Verified 10/09/20 09:06 Review of Systems Review of Systems ROS: Yes All systems reviewed with the patient and are negative except as otherwise documented Exam Vital Signs (past 8 hours): - 12/23/20 09:56 Temperature 97.6 F Pulse Rate 60 Respiratory Rate 16 Blood Pressure 153/79 H Pulse Oximetry 95 Oxygen Delivery Method Room Air Narrative Exam Narrative: GENERAL-elderly woman, no acute distress HEENT-no scleral icterus, hearing intact NECK-no JVD, trachea midline CVS- regular rate, mild peripheral edema RESP-unlabored respiratory effort, no audible wheezing GI-soft, nontender nondistended MSK-no cyanosis or clubbing, extremities without deformity SKIN-warm, dry NEURO-alert and oriented, no focal deficits PYSCH-Appropriate mood and affect Assessment & Plan Assessment and plan (1) Left inguinal hernia: Status: Acute Assessment & Plan narrative: 75-year-old woman here for an elective open left inguinal hernia repair with mesh. Technical details of the operation were again discussed with the patient. Operative risks including bleeding, infection damage to surrounding structures, recurrence, chronic pain, were discussed. Her questions have been answered and she is in agreement with this plan.
[2020-12-23] MEDS: CLINDAMYCIN 900 MG/50 ML PIGGYBACK 50 MG IV (11:02)
--- NOTE | 2020-12-23 11:14 | SUR.OPER ---
Supine on padded OR bed, head on pillow, arms secured on padded arm boards at <90 degrees abduction, legs uncrossed, safety belt at thigh, tape over blanket over lower legs.
[2020-12-23] MEDS: BUPIVACAINE 0.25% (PF) VIAL 30 ML INJ (11:20)
--- NOTE | 2020-12-23 12:42 | P.OP_ITS ---
Operative Date/Time/Diagnoses Date of procedure: 12/23/20 Time of procedure: 12:42 Pre-op diagnosis: left inguinal hernia Post-op diagnosis: same Procedure & Clinicians Procedure: open left inguinal hernia repair with mesh Same procedure as scheduled: Yes Indications: left inguinal hernia Surgeon: Mateusz Castañeda Anesthesia Type: General Operative Notes Findings: large direct floor defect Specimen(s): none sent Estimated Blood Loss (mL): 30 Procedure in detail: The patient was placed supine on the table and bilateral lower extremity compression devices were applied. Anesthesia was induced they were intubated with an LMA and received 2g of Ancef. A time-out was performed. They were prepped and draped in sterile fashion. The left external inguinal ring and the anterior superior iliac crest were identified and marked. 1 finger breath above the inguinal ligament the skin was infiltrated with 0.25% bupivacaine. The skin incision was made here and the subcutaneous tissues were divided with electrocautery exposing the external oblique aponeurosis which was then opened along the direction of its fibers. Using blunt dissection the internal oblique aporneurosis was from the external oblique upper leaflet. There was a large direct floor defect with hernia sac containing bowel protruding through it. The defect was identified and it was reduced into the abdomen and the internal oblique aporneuorsis was approximated to the inguinal ligament with Ethibond suture to reapproximate the floor. I selected a 7x 15 cm lightweight Pro Loop hernia mesh. The inferior medial aspect of the mesh was anchored to insertion of the rectus muscle to the pubic tubercle such that there was approximately 2 cm of tubercle overlap with Ethibond and then was run continuously along the inferior edge of the mesh to the shelving edge of the inguinal ligament. Interrupted 3 0 Vicryl suture was used to anchor the supe rior aspect of the mesh to the conjoined tendon in several places. The tails of the mesh were then tucked under the external oblique aponeurosis. The repair was checked for hemostasis. The wound was irrigated with sterile saline. The external oblique aponeurosis was reapproximated in a running fashion using 3 0 Vicryl. The subcutaneous tissues were reapproximated with 3 0 Vicryl skin closed with 4 0 Monocryl followed by the application of Dermabond. At the end of the operation I ensured that both testicles were within the scrotum. The sponge instrument count at the end operation was correct. The patient emerged from anesthesia was extubated and transferred to the postoperative care unit in stable condition. A total of 30 ml of of 0.25% bupivicaine was used to infiltrate the skin. Complications: none Post-operative Condition: stable Disposition: same day surgery
--- NOTE | 2020-12-23 13:53 | SUR.PHASEII ---
[id number] Attempted to obtain PO rx from [facility], none ordered. Transferred patient to [facility]. Requested PO Rx from anesthesia. RN regional refrigerated cdl truck driver called from the OR, stated that the patient had a prior history of hypoxemia. Checked O2 sat with 2 different machines, one on each hand. Sats 77% and 79%. Place pt on O2 at 3LNP and continuous pulse ox. Hand off report to Nahum Banegas RN
--- NOTE | 2020-12-23 14:03 | SUR.PHASEII ---
Patient resting in stretcher with no complaints. Pain 08/17. Left lower surgical incision with aquacell clean, dry and intact. Patient has an oxygen saturation of 96% on 2 liters. Removed patient from oxygen to assess room air saturation. Oxygen saturation down to 90% on room air. Patient states that she uses oxygen at home at night, usually about 1.5 liters. Patient denies any SOB. Encouraged deep breathing.
--- NOTE | 2020-12-23 14:29 | SUR.PHASEII ---
Patient placed on oxygen at 1 liter nasal cannula; oxygen saturation 95% on one liter. Patient is in no distress. RR even and unlabored.
--- NOTE | 2020-12-23 16:14 | SUR.PHASEII ---
late entry: 1450: assisted patient to bathroom prior to discharge. Discharged home in stable condition. Home with . All belongings returned.
== END 2020-12-23 15:00 | disposition home or self-care (01) ==
PROVIDERS: PCP Internal Medicine; Referring Provider Surgery; Visit Provider Surgery
PROC: (CPT 49505; principal; 2020-12-23 10:15)
DX: K40.90 Unilateral inguinal hernia, without obstruction or gangrene, not specified as recurrent (principal); Z95.0 Presence of cardiac pacemaker; E78.5 Hyperlipidemia, unspecified; E03.9 Hypothyroidism, unspecified; I11.0 Hypertensive heart disease with heart failure; I50.9 Heart failure, unspecified; I48.91 Unspecified atrial fibrillation; Z79.01 Long term (current) use of anticoagulants; E66.01 Morbid (severe) obesity due to excess calories; Z68.41 Body mass index [BMI] 40.0-44.9, adult; G47.33 Obstructive sleep apnea (adult) (pediatric)
CPT/HCPCS: 49505; 85610; C1781; J0330; J1100; J2405; J2704

== ENCOUNTER → 2021-01-09 14:09 | Outpatient (CLI) | payer MEDICARE, OTHER, SELFPAY ==
[2020-05-01 02:21] VITALS: BMI 43.9
[2021-01-09 14:56] LABS: Alanine Aminotransferase 21 IU/L (<35); Albumin 3.9 g/dL (3.5-5.0); Albumin Globulin Ratio 1.1 (1.0-2.8); Alkaline Phosphatase 111 U/L (38-126); Aspartate Aminotransferase 33 IU/L (14-36); BUN Creatinine Ratio 31.3 (6-22); Bilirubin Total 0.5 mg/dL (0.2-1.3); Blood Urea Nitrogen 20 mg/dL (7-17); Calcium 8.9 mg/dL (8.4-10.2); Carbon Dioxide 35 mmol/L (22-32); Chloride 99 mmol/L (98-107); Estimated Glomerular Filt Rate > 60.0 mL/min (>60); Globulin 3.6 g/dL (1.7-4.1); Glucose 102 mg/dL (80-110); HEMOLYSIS < 15 (0-50); Magnesium 1.8 mg/dL (1.6-2.3); Potassium 3.6 mmol/L (3.4-5.1); Sodium 139 mmol/L (137-145); Total Protein 7.5 g/dL (6.3-8.2)
[2021-01-09 14:59] LABS: Uric Acid 4.7 mg/dL (2.5-6.2)
[2021-01-09 15:46] LABS: TSH w/ Reflex to FT4 2.82 uIU/mL (0.47-4.68)
== END ==
PROVIDERS: PCP Internal Medicine; Referring Provider Specialist; Visit Provider Specialist
DX: I10 Essential (primary) hypertension (principal); E03.9 Hypothyroidism, unspecified; M10.9 Gout, unspecified
CPT/HCPCS: 36415; 80053; 83735; 84443; 84550

== ENCOUNTER → 2021-02-16 16:27 | Outpatient (CLI) | payer MEDICARE, OTHER, SELFPAY ==
[2020-05-01 02:21] VITALS: BMI 43.9
[2021-02-16 18:46] LABS: BUN Creatinine Ratio 36.2 (6-22); Blood Urea Nitrogen 25 mg/dL (7-17); Calcium 8.9 mg/dL (8.4-10.2); Carbon Dioxide 37 mmol/L (22-32); Chloride 99 mmol/L (98-107); Estimated Glomerular Filt Rate > 60.0 mL/min (>60); Glucose 104 mg/dL (80-110); HEMOLYSIS < 15 (0-50); Potassium 3.7 mmol/L (3.4-5.1); Sodium 140 mmol/L (137-145)
== END ==
PROVIDERS: PCP Internal Medicine; Referring Provider Specialist; Visit Provider Specialist
DX: I10 Essential (primary) hypertension (principal)
CPT/HCPCS: 36415; 80048

== ENCOUNTER → 2021-04-21 13:10 | Outpatient (CLI) | payer MEDICARE, OTHER, SELFPAY ==
[2020-05-01 02:21] VITALS: BMI 43.9
[2021-04-21 14:52] LABS: BUN Creatinine Ratio 34.8 (6-22); Blood Urea Nitrogen 24 mg/dL (7-17); Calcium 9.3 mg/dL (8.4-10.2); Carbon Dioxide 37 mmol/L (22-32); Chloride 97 mmol/L (98-107); Estimated Glomerular Filt Rate > 60.0 mL/min (>60); Glucose 124 mg/dL (80-110); HEMOLYSIS < 15 (0-50); Sodium 140 mmol/L (137-145)
== END ==
PROVIDERS: PCP Internal Medicine; Referring Provider Specialist; Visit Provider Specialist
DX: I48.0 Paroxysmal atrial fibrillation (principal); I10 Essential (primary) hypertension
CPT/HCPCS: 36415; 80048; 83735

== ENCOUNTER → 2021-06-12 12:00 | Outpatient (CLI) | payer MEDICARE, OTHER, SELFPAY ==
[2020-05-01 02:21] VITALS: BMI 43.9
[2021-06-12 14:16] LABS: Magnesium 1.9 mg/dL (1.6-2.3)
[2021-06-12 15:11] LABS: BUN Creatinine Ratio 29.3 (6-22); Blood Urea Nitrogen 22 mg/dL (7-17); Calcium 9.2 mg/dL (8.4-10.2); Chloride 95 mmol/L (98-107); Estimated Glomerular Filt Rate > 60.0 mL/min (>60); Glucose 96 mg/dL (80-110); HEMOLYSIS < 15 (0-50); Potassium 4.2 mmol/L (3.4-5.1); Sodium 140 mmol/L (137-145); Uric Acid 4.1 mg/dL (2.5-6.2)
[2021-06-12 15:20] LABS: Carbon Dioxide 39 mmol/L (22-32)
[2021-06-12 15:42] LABS: Thyroid Stimulating Hormone 4.62 uIU/mL (0.47-4.68)
== END ==
PROVIDERS: PCP Internal Medicine; Referring Provider Specialist; Visit Provider Specialist
DX: E03.9 Hypothyroidism, unspecified (principal); I48.0 Paroxysmal atrial fibrillation; M10.9 Gout, unspecified
CPT/HCPCS: 36415; 80048; 83735; 84443; 84550

== ENCOUNTER → 2021-09-09 10:52 | Outpatient (CLI) | payer MEDICARE, OTHER, SELFPAY ==
[2020-05-01 02:21] VITALS: BMI 43.9
[2021-09-09 13:05] LABS: Alanine Aminotransferase 24 IU/L (<35); Albumin 4.2 g/dL (3.5-5.0); Albumin Globulin Ratio 1.2 (1.0-2.8); Alkaline Phosphatase 91 U/L (38-126); Aspartate Aminotransferase 38 IU/L (14-36); BUN Creatinine Ratio 23.8 (6-22); Bilirubin Total 0.7 mg/dL (0.2-1.3); Blood Urea Nitrogen 19 mg/dL (7-17); Chloride 98 mmol/L (98-107); Estimated Glomerular Filt Rate > 60.0 mL/min (>60); Globulin 3.5 g/dL (1.7-4.1); Glucose 89 mg/dL (80-110); HEMOLYSIS < 15 (0-50); Magnesium 1.8 mg/dL (1.6-2.3); Potassium 3.8 mmol/L (3.4-5.1); Sodium 139 mmol/L (137-145); Total Protein 7.7 g/dL (6.3-8.2)
[2021-09-09 13:12] LABS: Carbon Dioxide 39 mmol/L (22-32)
[2021-09-11 10:44] LABS: Cholesterol, Total 251 mg/dL (100-199); HDL-Cholesterol 88 mg/dL (>39); LDL Particle 1401 nmol/L (<1000); LDL Size 21.6 nm (>20.5); LDL-Cholsterol 147 mg/dL (0-99); LP-IR Score 25 (<=45); Small LDL- Particle <90 nmol/L (<=527); Triglycerides 92 mg/dL (0-149)
== END ==
PROVIDERS: PCP Internal Medicine; Referring Provider Specialist; Visit Provider Specialist
DX: I48.0 Paroxysmal atrial fibrillation (principal); E78.00 Pure hypercholesterolemia, unspecified; I10 Essential (primary) hypertension
CPT/HCPCS: 36415; 80053; 80061; 83704; 83735

== ENCOUNTER → 2021-09-10 13:50 | Outpatient (CLI) | payer MEDICARE, OTHER, SELFPAY ==
[2020-05-01 02:21] VITALS: BMI 43.9
--- NOTE | 2021-09-10 | DI.ECHO.S_ITS ---
[facility] +---------+ [facility] +---------+ : : [address] : : : [place], [place] : : : : [id number] : : : : Phone: [phone]+ Echocardiogram Report + + :Name: OLE ORLANDO Study Date: 09/10/2021 Height: 69 in : :[facility] ReadingLocation: Weight: 302 lb : : Gender: Female BSA: 2.5 m2 : :: 1945 Age: 76 yrs BP: 139/82 mmHg: :Reason For Study: Dyspnea : :Ordering Physician: Terry Weldon : :Larry Performed By: Juan Mckeon : :Referring: Terry Juarez : + + Interpretation Summary Image quality on this exam is extremely poor, in part due to the patient's body habitus and her inability to maintain usual body positioning, with the majority of the images obtained either in the supine or sitting position. This limits the diagnostic accuracy, and the following findings must be taken within this context. Future study should be done with the [employer] imaging system with the patient in standard imaging positions. The left ventricle is not well seen but grossly appears to be mildly enlarged but similar in size to the previous study. Global contractility is likely mildly reduced with a gross estimate of the ejection fraction being 45 to 55% with probable mild global hypokinesis and a mild dyssynchronous contraction pattern but no obvious focal wall motion abnormality. Contractility grossly appears unchanged from the previous exam, but perhaps slightly less dynamic. Left ventricular wall thickness is likely mildly increased. Diastolic function is challenging to assess but there is some evidence for significantly elevated filling pressures, although perhaps somewhat lower compared to the previous study. The right ventricle is poorly seen but grossly appears normal in size with probable low normal systolic function. Right ventricular systolic pressure cannot be estimated but CVP is around 8 mmHg, likely similar to the previous exam. The left atrium is likely severely enlarged although measures smaller compared to the previous study. The right atrium is likely moderately enlarged and likely similar to the previous exam. The cardiac valves are poorly seen but there is no obvious significant functional valvular abnormality. There is probable mild mitral regurgitation that is likely unchanged from the previous exam. The ascending aorta is mildly enlarged but unchanged from the previous study. Procedure: A two-dimensional transthoracic echocardiogram with color flow and Doppler was performed. The study quality was technically difficult. The apical views were difficult to obtain and are suboptimal in quality. Comparison is made with the echocardiogram of 11/27/2020. Patient could not tolerate this exam. They were also supine and sitting up. Poor image quality. The patient was in normal sinus rhythm during the exam. Left Ventricle: The left ventricle is not well visualized. The left ventricle is borderline dilated. There is mild concentric left ventricular hypertrophy. This is grossly unchanged compared to the previous study. The estimated left ventricular end diastolic volume is 107 ml compared to the previous 110 ml. Left ventricular systolic function is mildly reduced. Left ventricular ejection fraction is estimated to be 50 +/- 5%. There is mild global hypokinesis of the left ventricle. There is a mild dyssynchronous contraction pattern, consistent with a conduction abnormality. There are no obvious focal wall motion abnormalities noted but poor endocardial definition reduces the sensitivity for the detection of such. This is unchanged, perhaps slightly less dynamic compared to the previous study. Diastolic function could not be accurately assessed due to unobtainable data. An elevated E/A ratio suggests possible elevated end-diastolic pressures but perhaps improved from the previous study. Right Ventricle: There is a pacemaker lead in the right ventricle. The right ventricle is not well visualized. The right ventricle grossly appears normal in size with probable normal systolic function. This is likely unchanged compared to the previous study. Atria: The left atrium is severely dilated. The left atrium has significantly decreased in size since the prior echo exam. There is a catheter/pacemaker lead seen in the right atrium. The right atrium is moderately dilated. Right atrial volume index is estimated at 35 mL/mA?. This is likely unchanged compared to the previous study. The interatrial septum is not well visualized. Mitral Valve: There is mild mitral annular calcification. The mitral valve leaflets appear borderline thickened, but open well. There is mild mitral regurgitation. This is unchanged compared to the previous study. Aortic Valve: The aortic valve is trileaflet. The aortic valve is mildly calcified. The aortic valve opens well. There is trace aortic regurgitation. Tricuspid Valve: The tricuspid valve is normal. There is trace tricuspid regurgitation. Pulmonary artery pressures cannot be estimated because of the lack of a measurable TR jet velocity but the IVC suggests a CVP of around 8 mmHg. Pulmonic Valve: The pulmonic valve leaflets are thin and pliable; valve motion is normal. There is a trace or physiologic amount of pulmonic regurgitation. Great Vessels: The aortic root is normal size. The ascending aorta is mildly enlarged. The aortic arch is normal in size. This is unchanged compared to the previous study. The IVC is dilated (diameter is greater than 2.1 cm) yet it collapses greater than 50% with a sniff. This suggests a right atrial pressure of 8 mm Hg. Pericardium/ Pleura There is no pericardial effusion. There is an anterior echo-free space consistent with a fat pad. There is no pleural effusion. MMode/2D Measurements & Calculations LVIDd: 5.9 cm LVOT diam: 2.1 cm LVIDs: 3.9 cm Ao root diam: 3.4 cm FS: 33.9 % asc Aorta Diam: 3.8 cm IVSd: 1.2 cm Ao Arch Diam (Prox Trans): 2.7 cm LVPWd: 1.3 cm LV andre. diameter/BSA (cm/m^2): 2.4 LV sys. diameter/BSA (cm/m^2): 1.6 LA A2 area: 35.6 cm2 RA long axis: 7.3 cm LA A4 area: 30.5 cm2 IVC diam: 2.5 cm LA length (vol): 7.6 cm LA vol: 121.0 ml LA vol index: 49.2 ml/m2 LVLs ap4: 6.4 cm LVLd ap2: 6.3 cm LVLs ap2: 5.7 cm TAPSE_phl: 2.3 cm Doppler Measurements & Calculations Ao V2 max: 132.0 cm/sec LVOT Max Elliot: 69.2 cm/sec Ao V2 mean: 108.0 cm/sec LV V1 max P.9 mmHg Ao max P.0 mmHg LV V1 VTI: 17.2 cm Ao mean P.0 mmHg MARISABEL(I,D): 1.7 cm2 Ao V2 VTI: 35.3 cm MARISABEL(V,D): 1.8 cm2 sev ratio: 0.49 MARISABEL indexed to BSA (cm^2/m^2): 0.69 MV E max elliot: 70.3 cm/sec SV(LVOT): 59.6 ml MV A max elliot: 48.8 cm/sec MV E/A: 1.4 Med Peak E' Elliot: 8.4 cm/sec E/E' med: 8.4 Lat Peak E' Elliot: 7.0 cm/sec E/E' lat: 10.1 E/e' average: 9.2 MV dec time: 0.16 sec AV VR_phl: 0.52 MV P1/2t-pr_phl: 47.0 msec MARISABEL(VTI)/BSA_phl: 0.69 Reading Physician:10:02 AM
== END ==
PROVIDERS: PCP Internal Medicine; Referring Provider Physician Assistant Medical; Visit Provider Physician Assistant Medical
DX: I34.0 Nonrheumatic mitral (valve) insufficiency (principal); I27.20 Pulmonary hypertension, unspecified; I77.89 Other specified disorders of arteries and arterioles; R06.00 Dyspnea, unspecified; Z95.0 Presence of cardiac pacemaker
CPT/HCPCS: 93306

== ENCOUNTER → 2021-12-19 12:10 | Outpatient (CLI) | payer MEDICARE, OTHER, SELFPAY ==
[2020-05-01 02:21] VITALS: BMI 43.9
[2021-12-19 13:14] LABS: Alanine Aminotransferase 23 IU/L (<35); Albumin 4.2 g/dL (3.5-5.0); Albumin Globulin Ratio 1.3 (1.0-2.8); Alkaline Phosphatase 91 U/L (38-126); Aspartate Aminotransferase 39 IU/L (14-36); Bilirubin Total 0.6 mg/dL (0.2-1.3); Blood Urea Nitrogen 23 mg/dL (7-17); Calcium 8.7 mg/dL (8.4-10.2); Chloride 95 mmol/L (98-107); Estimated Glomerular Filt Rate > 60 mL/min (>60); Globulin 3.3 g/dL (1.7-4.1); Glucose 88 mg/dL (80-110); HEMOLYSIS < 15 (0-50); Magnesium 1.8 mg/dL (1.6-2.3); Potassium 4.3 mmol/L (3.4-5.1); Sodium 140 mmol/L (137-145); Total Protein 7.5 g/dL (6.3-8.2)
[2021-12-19 13:20] LABS: Carbon Dioxide 39 mmol/L (22-32)
[2021-12-19 13:44] LABS: Thyroid Stimulating Hormone 31.4 uIU/mL (0.47-4.68)
== END ==
PROVIDERS: PCP Internal Medicine; Referring Provider Specialist; Visit Provider Specialist
DX: I48.0 Paroxysmal atrial fibrillation (principal); I50.22 Chronic systolic (congestive) heart failure; I42.0 Dilated cardiomyopathy
CPT/HCPCS: 36415; 80053; 83735; 84443

== ENCOUNTER → 2022-04-24 12:32 | Outpatient (CLI) | payer MEDICARE, OTHER, SELFPAY ==
[2020-05-01 02:21] VITALS: BMI 43.9
[2022-04-24 13:26] LABS: Alanine Aminotransferase 17 IU/L (<35); Albumin 4.1 g/dL (3.5-5.0); Albumin Globulin Ratio 1.2 (1.0-2.8); Alkaline Phosphatase 92 U/L (38-126); Aspartate Aminotransferase 30 IU/L (14-36); BUN Creatinine Ratio 23.7 (6-22); Bilirubin Total 0.8 mg/dL (0.2-1.3); Blood Urea Nitrogen 18 mg/dL (7-17); Calcium 8.6 mg/dL (8.4-10.2); Carbon Dioxide 36 mmol/L (22-32); Chloride 98 mmol/L (98-107); Estimated Glomerular Filt Rate > 60 mL/min (>60); Globulin 3.5 g/dL (1.7-4.1); Glucose 92 mg/dL (80-110); HEMOLYSIS 23 (0-50); Magnesium 1.8 mg/dL (1.6-2.3); Potassium 4.2 mmol/L (3.4-5.1); Sodium 140 mmol/L (137-145); Total Protein 7.6 g/dL (6.3-8.2)
[2022-04-24 13:55] LABS: Thyroid Stimulating Hormone 13.7 uIU/mL (0.47-4.68)
== END ==
PROVIDERS: PCP Internal Medicine; Referring Provider Physician Assistant Medical; Visit Provider Specialist
DX: I11.0 Hypertensive heart disease with heart failure (principal); I48.0 Paroxysmal atrial fibrillation; E78.00 Pure hypercholesterolemia, unspecified
CPT/HCPCS: 36415; 80053; 83735; 84443

== ENCOUNTER → 2022-07-12 14:53 | Outpatient (CLI) | payer MEDICARE, OTHER, SELFPAY ==
[2022-05-03 08:59] VITALS: BMI 43.9
[2022-07-12 19:26] LABS: TSH w/ Reflex to FT4 1.87 uIU/mL (0.47-4.68)
== END ==
PROVIDERS: Family Provider Internal Medicine; PCP Internal Medicine; Referring Provider Internal Medicine; Visit Provider Internal Medicine
DX: E03.9 Hypothyroidism, unspecified (principal)
CPT/HCPCS: 36415; 84443

== ENCOUNTER → 2022-08-03 12:34 | Outpatient (CLI) | payer MEDICARE, OTHER, SELFPAY ==
[2022-05-03 08:59] VITALS: BMI 43.9
[2022-08-03 13:35] LABS: Alanine Aminotransferase 43 IU/L (<35); Albumin Globulin Ratio 1.1 (1.0-2.8); Alkaline Phosphatase 103 U/L (38-126); Aspartate Aminotransferase 48 IU/L (14-36); BUN Creatinine Ratio 34.3 (6-22); Bilirubin Total 0.5 mg/dL (0.2-1.3); Blood Urea Nitrogen 24 mg/dL (7-17); Calcium 8.7 mg/dL (8.4-10.2); Carbon Dioxide 37 mmol/L (22-32); Chloride 97 mmol/L (98-107); Estimated Glomerular Filt Rate > 60 mL/min (>60); Globulin 3.8 g/dL (1.7-4.1); Glucose 97 mg/dL (80-110); HEMOLYSIS < 15 (0-50); Potassium 4.1 mmol/L (3.4-5.1); Sodium 139 mmol/L (137-145); Total Protein 7.8 g/dL (6.3-8.2)
[2022-08-03 14:06] LABS: Thyroid Stimulating Hormone 2.18 uIU/mL (0.47-4.68)
[2022-08-05 08:47] LABS: Cholesterol, Total 160 mg/dL (100-199); HDL-Cholesterol 86 mg/dL (>39); LDL Particle 548 nmol/L (<1000); LDL Size 21.3 nm (>20.5); LDL-Cholsterol 60 mg/dL (0-99); LP-IR Score 47 (<=45); Small LDL- Particle <90 nmol/L (<=527); Triglycerides 76 mg/dL (0-149)
== END ==
PROVIDERS: Family Provider Internal Medicine; PCP Internal Medicine; Referring Provider Specialist; Visit Provider Specialist
DX: I48.0 Paroxysmal atrial fibrillation (principal); E03.9 Hypothyroidism, unspecified; E78.2 Mixed hyperlipidemia
CPT/HCPCS: 36415; 80053; 80061; 83704; 83735; 84443

== ENCOUNTER 2022-08-04 14:15 | Outpatient (RCR) | payer MEDICARE, OTHER, SELFPAY ==
[2022-05-03 08:59] VITALS: BMI 43.9
== END 2022-08-04 16:15 ==
LOC: PUL 14:15
PROVIDERS: Family Provider Internal Medicine; PCP Internal Medicine; Referring Provider Internal Medicine Critical Care Medicine; Visit Provider Internal Medicine Critical Care Medicine
DX: J44.9 Chronic obstructive pulmonary disease, unspecified (principal); J98.4 Other disorders of lung
CPT/HCPCS: 94625; 94626

== ENCOUNTER 2022-08-11 15:53 | Emergency (ER) | payer MEDICARE, OTHER, SELFPAY ==
[2022-05-03 08:59] VITALS: BMI 43.9
[2022-08-11 16:41] VITALS: BP 138/78; PULSE 67; RESP 18; TEMP 36.1; O2SAT 97; BMI 44.3
--- NOTE | 2022-08-11 16:47 | DI.RAD.S_ITS ---
PROCEDURE: XR KNEE LT 3V INDICATIONS: fall TECHNIQUE: 3 views of the knee were acquired. COMPARISON: [facility], CR, XR HAND RT MIN 3V, 08/11/2022, 16:48. [facility], CR, XR KNEE RT 3V, 02/06/2018, 14:29. FINDINGS: Bones: No fractures or dislocations. No suspicious bony lesions. Intact appearing knee arthroplasty hardware is seen. Soft tissues: Soft tissue swelling is seen anteriorly and superior to the knee. There is a mild joint effusion. No suspicious soft tissue calcifications. IMPRESSION: Soft tissue swelling is seen, with a mild joint effusion. Intact appearing hardware. No displaced fracture can be seen. Dictated by: Rodo Doan M.D. on 08/11/2022 at 16:52 Approved by: Rodo Doan M.D. on 08/11/2022 at 16:53
--- NOTE | 2022-08-11 16:47 | DI.RAD.S_ITS ---
PROCEDURE: XR HAND RT MIN 3V INDICATIONS: fall TECHNIQUE: 3 views of the hand(s) acquired. COMPARISON: [facility], CR, XR KNEE LT 3V, 08/11/2022, 16:48. [facility], CR, HANDS BILATERAL, 02/29/2008, 8:31. FINDINGS: Bones: No fractures or dislocations. Carpal bones are normally aligned. No suspicious bony lesions. Degenerative changes are seen throughout, which are worst involving the distal interphalangeal joints. Focal 1st carpometacarpal joint degenerative change is also seen. Soft tissues: No suspicious soft tissue calcifications. IMPRESSION: Relatively prominent degenerative changes are seen, without an acute fracture seen by plain film. If there is point tenderness (or other clinical suspicion for a fracture not seen on these images) please consider a dedicated CT for further evaluation. Dictated by: Rodo Doan M.D. on 08/11/2022 at 16:54 Approved by: Rodo Doan M.D. on 08/11/2022 at 16:55
[2022-08-11 17:14] LABS: Prothrombin Time 35.2 SECONDS (10.1-12.7)
[2022-08-11 17:15] LABS: Add Manual Diff / Slide Review NO; Basophils Absolute Auto 0 /uL (0-100); Basophils Percent Auto 0.7 % (0-2); Eosinophils Absolute Auto 100 /uL (0-450); Eosinophils Percent Auto 2.7 % (2-4); Hemoglobin 12.7 g/dL (12.0-16.0); Lymphocytes Absolute Auto 800 /uL (1100-4500); Lymphocytes Percent Auto 19.4 % (25-40); Mean Corpuscular HGB Conc 33.4 % (30-36); Mean Corpuscular Hemoglobin 35.2 PG (26-34); Mean Corpuscular Volume 105.5 fL (80-100); Monocytes Absolute Auto 500 /uL (0-900); Monocytes Percent Auto 12.2 % (3-14); Neutrophils Absolute Auto 2800 /uL (1500-7000); Platelet Count 152 X10^3/uL (150-400); Red Cell Distribution Width 14.5 % (11.6-14.8); White Blood Cell Count 4.4 X10^3/uL (4.5-11.0)
[2022-08-11 18:48] VITALS: BP 144/78; PULSE 78; RESP 17; O2SAT 99
--- NOTE | 2022-08-11 19:08 | ED.FALL ---
HPI - Fall <Jessenia AMANDA MckeonP - Last Filed: 08/11/22 20:02> General Chief Complaint: Fall Stated Complaint: Fell, Hurt knee, Poss internal bleeding Time Seen by Provider: 08/11/22 17:38 Source: patient and family Mode of arrival: Wheelchair History of Present Illness HPI Narrative: This is a 77-year-old female with history of atrial fibrillation, chronic anticoagulation on warfarin with an INR goal of 2-3, elevated BMI, ADRIAN on CPAP with 2 L of O2 at night, status post cardia pacemaker, hypertension, chronic diastolic heart failure, hyperlipidemia, hypothyroidism and pulmonary hypertension who presents emergency department today with a mechanical fall and concern for knee pain and swelling with history of bilateral knee arthroplasty with Dr. Lamb at [facility], 2019 of her left, 2020 for her right. Patient states that her PCP is Dr. Argueta tell, her anticoagulation provider is Flavio. States that she was walking with her cane and got the cane stuck in a curtain, fell down to the ground on her right hand extended and her left knee. States that she is able to bear weight, denies sensation of instability, denies weakness, sensation changes, difficulty walking, complains of tenderness and some mild swelling, denies locking, abnormal range of motion or other complaint. Denies hitting her head, denies weakness any other injury states that her hand feels tender with palpation but her range of motion, sensation, and dexterity remain intact. Related Data Home Medications Medication Instructions Recorded Confirmed sotalol 120 mg tablet 120 mg PO BID 04/30/20 07/12/22 colchicine 0.6 mg capsule See Rx Instructions .Route 05/01/20 07/12/22 .COMPLEX PRN Gout magnesium oxide 400 mg PO DAILY 05/01/20 07/12/22 vpnorajjxttx-sjodlghc-abuead 1 tab PO DAILY 05/01/20 07/12/22 tablet (Multivitamin 50 Plus tablet) metoprolol succinate 100 mg 100 mg PO BID 01/06/22 07/12/22 tablet,extended release 24 hr potassium chloride 20 mEq 20 meq PO DAILY 01/06/22 07/12/22 tablet,extended release Disabled Parking Permit 1 ea Not Applicable ONCE 05/03/22 07/12/22 Xylitol 2 - 4 tab PO BEDTIME Dry Mouth 07/12/22 fluticasone propionate 220 1 puff inhalation BID PRN 07/12/22 07/12/22 mcg/actuation HFA aerosol inhaler (Flovent HFA) sildenafil (pulm.hypertension) 20 20 mg PO DAILY 07/12/22 07/12/22 mg tablet torsemide 20 mg tablet 10 mg PO DAILY PRN weight gain 07/12/22 07/12/22 warfarin 5 mg tablet (Jantoven) See Rx Instructions .Route .COMPLEX 07/12/22 07/12/22 Previous Rx's Medication Instructions Recorded acetaminophen 325 mg capsule 650 mg PO QID PRN pain #60 caps 12/23/20 (Tylenol) nystatin 100,000 unit/gram topical 1 applic topical BID #60 grams 01/07/21 powder allopurinol 300 mg tablet 300 mg PO DAILY #90 tabs 01/06/22 clobetasol 0.05 % topical ointment 1 applic topical BID PRN Skin 01/06/22 Irritation #15 grams Parking Permit... #1 ea 05/03/22 levothyroxine 125 mcg tablet 250 mcg PO DAILY #180 tabs 05/03/22 rosuvastatin 10 mg tablet 10 mg PO DAILY #90 tabs 07/12/22 Allergies Allergy/AdvReac Type Severity Reaction Status Date / Time amoxicillin [AMOXICILLIN] Allergy Unknown Verified 07/12/22 13:05 benzocaine [BENZOCAINE] Allergy Unknown Verified 07/12/22 13:05 celecoxib [From Celebrex] Allergy Unknown Verified 07/12/22 13:05 cephalexin [CEPHALEXIN] Allergy Unknown Verified 07/12/22 13:05 fluconazole Allergy Unknown Verified 07/12/22 13:05 metronidazole [METRONIDAZOLE] Allergy Unknown Verified 07/12/22 13:05 moxifloxacin Allergy Unknown Verified 07/12/22 13:05 penicillin V Allergy Unknown Verified 07/12/22 13:05 sodium chloride Allergy Unknown Verified 07/12/22 13:05 oxycodone Allergy Verified 07/12/22 13:05 Review of Systems <JAS Sanabria - Last Filed: 08/11/22 20:02> Review of Systems ROS Unobtainable: All systems reviewed & are unremarkable except as noted in HPI and below Patient History <JAS Sanabria - Last Filed: 08/11/22 20:02> Medical History Acquired hypothyroidism Afib Ataxia Chronic anticoagulation Chronic atrial fibrillation Chronic back pain Chronic diastolic (congestive) heart failure Chronic respiratory failure with hypoxia Essential hypertension First degree AV block Gait instability Gout Hypertension Hypothyroidism Left bundle branch block Lipoma of upper arm Mixed hyperlipidemia Obese Obstructive sleep apnea Pacemaker Pulmonary hypertension Severe obesity Third degree heart block Viral wart on finger Surgical History H/O cardiac radiofrequency ablation H/O knee surgery Status cardiac pacemaker Social History household members: spouse Smoking Status: Never smoker alcohol intake: current Smoking Status: Never smoker alcohol intake frequency: 3 or more drinks per day Alcohol type: wine Substance Use Type: does not use Exam <JAS Sanabria - Last Filed: 08/11/22 20:02> Narrative Exam Narrative: Reviewed vitals signs and nursing notes. General: cooperative, comfortable, in no acute distress, well groomed, sitting in wheelchair, pleasant and interactive, appears atraumatic HEENT: symmetrical facial expressions, moist mucous membranes Respiratory: normal effort, able to speak in complete sentences, without wheezing, stridor, or abnormal breath sounds. No retractions or tachypnea. GI: abdomen soft, nontender to palpation, nondistended, without masses, rebound tenderness or exquisite tenderness with exam. MSK: moves all extremities, neurovascularly intact, no weakness, normal tone, without unilateral edema, weakness, contusion, palpable effusion, tenderness over LCL, MCL, without increased laxity Skin: brisk capillary refill, without pallor or erythema Neuro: normal speech and cognition, A&O x3, ambulatory, clear speech Psych: mental status is grossly normal, congruent mood, normal affect, pleasant and cooperative Initial Vital Signs Initial Vital Signs: Vital Signs Temperature 96.9 F L 08/11/22 16:41 Pulse Rate 67 08/11/22 16:41 Respiratory Rate 18 08/11/22 16:41 Blood Pressure 138/78 08/11/22 16:41 Pulse Oximetry 97 08/11/22 16:41 Oxygen Delivery Method 08/11/22 16:41 <Bin Reilly DO - Last Filed: 08/11/22 21:20> Initial Vital Signs Initial Vital Signs: Vital Signs Temperature 96.9 F L 08/11/22 16:41 Pulse Rate 67 08/11/22 16:41 Respiratory Rate 18 08/11/22 16:41 Blood Pressure 138/78 08/11/22 16:41 Pulse Oximetry 97 08/11/22 16:41 Oxygen Delivery Method 08/11/22 16:41 Course <JAS Sanabria - Last Filed: 08/11/22 20:02> Orders Ordered: ED Orders 08/11/22 16:47 XR hand RT min 3V Stat XR knee LT 3V Stat 08/11/22 16:55 CBC Auto Diff [Complete Blood Count AUTO DIFF] Stat PT [Prothrombin Time INR] Stat Vital Signs Vital signs: Vital Signs - 8 hr 08/11/22 16:41 08/11/22 18:48 Temperature 96.9 F L Pulse Rate 67 78 Respiratory Rate 18 17 Blood Pressure 138/78 144/78 H Pulse Oximetry 97 99 Oxygen Delivery Method Room Air Room Air <Bin Reilly DO - Last Filed: 08/11/22 21:20> Orders Ordered: ED Orders 08/11/22 16:47 XR hand RT min 3V Stat XR knee LT 3V Stat 08/11/22 16:55 CBC Auto Diff [Complete Blood Count AUTO DIFF] Stat PT [Prothrombin Time INR] Stat Vital Signs Vital signs: Vital Signs - 8 hr 08/11/22 16:41 08/11/22 18:48 Temperature 96.9 F L Pulse Rate 67 78 Respiratory Rate 18 17 Blood Pressure 138/78 144/78 H Pulse Oximetry 97 99 Oxygen Delivery Method Room Air Room Air MDM - Fall <JAS Sanabria - Last Filed: 08/11/22 20:02> Lab Data Result diagrams: 08/11/22 16:55 Labs: Lab Results 08/11/22 08/11/22 Range/Units 16:55 16:55 WBC 4.4 L (4.5-11.0) X10^3/uL RBC 3.60 L (4.0-5.2) X10^6/uL Hgb 12.7 (12.0-16.0) g/dL Hct 38.0 (36-46) % MCV 105.5 H (80-100) fL MCH 35.2 H (26-34) PG MCHC 33.4 (30-36) % RDW 14.5 (11.6-14.8) % Plt Count 152 (150-400) X10^3/uL Neut % (Auto) 65.0 (50-75) % Lymph % (Auto) 19.4 L (25-40) % Willacy % (Auto) 12.2 (3-14) % Eos % (Auto) 2.7 (2-4) % Baso % (Auto) 0.7 (0-2) % Neut # (Auto) 2800 (4269-9913) /uL Lymph # (Auto) 800 L (7527-9283) /uL Willacy # (Auto) 500 (0-900) /uL Eos # (Auto) 100 (0-450) /uL Baso # (Auto) 0 (0-100) /uL PT 35.2 H (10.1-12.7) SECONDS INR 3.0 H (0.9-1.3) Imaging Data Extremity x-ray #1: Radiologist's Impression: PROCEDURE:? XR KNEE LT 3V ? INDICATIONS:? fall ? TECHNIQUE:? 3 views of the knee were acquired.? ? COMPARISON:? [facility], , XR HAND RT MIN 3V, 08/11/2022, 16:48.? [facility], , XR KNEE RT 3V, 02/06/2018, 14:29. ? FINDINGS:? ? Bones:? No fractures or dislocations.? No suspicious bony lesions.? ? Intact appearing knee arthroplasty hardware is seen. ? Soft tissues:? Soft tissue swelling is seen anteriorly and superior to the knee.? There is a mild joint effusion.? No suspicious soft tissue calcifications.? ? ? IMPRESSION:? Soft tissue swelling is seen, with a mild joint effusion. ? Intact appearing hardware. ? No displaced fracture can be seen. ? ? Dictated by: Rodo Doan M.D. on 08/11/2022 at 16:52 ? ? Approved by: Rodo Doan M.D. on 08/11/2022 at 16:53 ? Extremity x-ray #2: Radiologist's Impression: PROCEDURE:? XR HAND RT MIN 3V ? INDICATIONS:? fall ? TECHNIQUE:? 3 views of the hand(s) acquired.? ? COMPARISON:? [facility], CR, XR KNEE LT 3V, 08/11/2022, 16:48.? [facility], CR, HANDS BILATERAL, 02/29/2008, 8:31. ? FINDINGS:? ? Bones:? No fractures or dislocations.? Carpal bones are normally aligned.? No suspicious bony lesions.? ? Degenerative changes are seen throughout, which are worst involving the distal interphalangeal joints.? Focal 1st carpometacarpal joint degenerative change is also seen. ? Soft tissues:? No suspicious soft tissue calcifications.? ? ? IMPRESSION:? Relatively prominent degenerative changes are seen, without an acute fracture seen by plain film. ? If there is point tenderness (or other clinical suspicion for a fracture not seen on these images) please consider a dedicated CT for further evaluation. ?? ? Dictated by: Rodo Doan M.D. on 08/11/2022 at 16:54 ? ? Approved by: Rodo Doan M.D. on 08/11/2022 at 16:55 ? MDM Narrative Medical decision making narrative: This is a 77-year-old female who is presenting to the ED via POV with history of chronic atrial fibrillation on warfarin, CdHF, pulmonary hypertension, hyperlipidemia, hypertension, status post pacemaker and bilateral knee arthroplasty in 2019 and 2019 who had a mechanical fall today when her cane got stuck in a curtain and she fell forward with outstretched left hand injuring the base of her left palm, and her right knee. She is ambulatory, without open injury, history supratherapeutic INR yesterday at 4.0, she held her night dose of Coumadin last night. Her current schedule is 7.5 mg Tuesday and 5 mg nightly otherwise. She has swelling to her left knee, without weakness, sensation changes, sensation of instability, increased laxity or range of motion deficit. Differential diagnoses include, but are not limited to: Hardware failure, knee effusion, acute ligamental injury, tibial plateau fracture, infectious/gouty/inflammatory arthritis, hemarthrosis, and patellar injury. Plan: XR, pain control, reassessment, santosh bandage for compression Given history, exam, and mechanism. No e/o compartment syndrome, septic arthritis, other acute fracture and x-ray does not show evidence of hardware failure. However it does show soft tissue swelling, a mild joint effusion, intact appearing hardware and without displaced fracture. Range of motion is intact. Patient without tenderness over their MCL, LCL, and no significant laxity with varus and valgus testing. Mild palpable suprapatellar effusion The patient does not report any instability and can bear weight. She ambulates with a cane There is no weakness, flexion-extension range of motion is full. There is no no surrounding erythema, no sensation changes distally. , Patient's symptoms improved over duration of stay with above-stated therapies. This patient INR is 3.0 today, no evidence of hemorrhage, anemia, mild suprapatellar effusion and evidence of joint effusion on x-ray of her left knee which could be hemarthrosis however it does not rapidly swelling and a Santosh bandage for compression was apply, patient does have lateral edema. Recommend that she take 2.5-5 mg of warfarin for her goal INR of 2.0-3.0 after holding it last night. Encouraged to stay hydrated, stay on her other medications and rest her knee, ice it frequently, elevate it, use her cane for all ambulation to avoid worsening of this injury. She does not have tachycardia or evidence of cellulitis, systemic infection, other symptoms. She will follow up with her orthopedic physician tomorrow and images have been pushed to [facility]. MIPS: This encounter doesn't have any diagnosis associated with MIPS criteria. Vital Signs: I, the ED provider, reviewed the patient?s vital signs, past medical records and encounters if available, and nursing notes. I have spoken with the patient/family and discussed today?s findings whom verbalize understanding. Counseling was provided regarding the diagnosis and prognosis, and specific details were provided for the plan of care. Questions are addressed and there is agreement with the plan and for follow-up. Patient is appropriate for outpatient management. Portions of this chart have been created with [employer] voice recognition software. Occasional wrong word or sound alike substitutions may have occurred due to the inherent limitations of this software. I, JAS Choi, personally performed the services described in the documentation, and it accurately records my words and actions. I collaborated with the ED attending physician for EMILY level 2, 3, and some level 4s as needed Electronically signed by: JAS Choi <DO Bridgett Patel Last Filed: 08/11/22 21:20> Lab Data Labs: Lab Results 08/11/22 08/11/22 Range/Units 16:55 16:55 WBC 4.4 L (4.5-11.0) X10^3/uL RBC 3.60 L (4.0-5.2) X10^6/uL Hgb 12.7 (12.0-16.0) g/dL Hct 38.0 (36-46) % MCV 105.5 H (80-100) fL MCH 35.2 H (26-34) PG MCHC 33.4 (30-36) % RDW 14.5 (11.6-14.8) % Plt Count 152 (150-400) X10^3/uL Neut % (Auto) 65.0 (50-75) % Lymph % (Auto) 19.4 L (25-40) % Willacy % (Auto) 12.2 (3-14) % Eos % (Auto) 2.7 (2-4) % Baso % (Auto) 0.7 (0-2) % Neut # (Auto) 2800 (6550-2721) /uL Lymph # (Auto) 800 L (4565-7495) /uL Willacy # (Auto) 500 (0-900) /uL Eos # (Auto) 100 (0-450) /uL Baso # (Auto) 0 (0-100) /uL PT 35.2 H (10.1-12.7) SECONDS INR 3.0 H (0.9-1.3) Discharge Plan Departure Patient Disposition: Home Clinical Impression: Effusion of knee joint, left, History of warfarin therapy, History of atrial fibrillation, History of arthroplasty of both knees Fall Qualifiers: Encounter type: initial encounter Qualified Code(s): W19.XXXA - Unspecified fall, initial encounter Instructions: DI for Knee Effusion Activity Restrictions/Additional Instructions: *You have been diagnosed with fall with a left knee injury with history of anticoagulation, bilateral knee arthroplasty, today you were found to have swelling in your left knee joint which could be blood or edema. Your PT is 35.2 and INR today is 3.0. Your lab work does not anemia. Your x-ray does not show any hardware failure, fracture or suspicious lesions however there is soft tissue edema above and below the knee with a mild joint effusion. Please follow-up with Dr. Lamb tomorrow at your scheduled appointment and your images have been pushed the [facility]. Follow-up with your coagulation clinic about how much medication to take. I think it is acceptable to take 2.5-5 mg today if you have your INR drawn tomorrow. Please stay hydrated, ice your knee frequently throughout the day, avoid over exerting yourself, take Tylenol 650 mg every 4-6 hours as needed. Use Santosh bandage for supportive and compression to reduce edema. If you develop worsening pain, numbness, tingling, unilateral swelling, please return to the emergency department for another evaluation. Passive range of motion and gentle activity is recommended however weight-bearing activities like squats and exertional activity is best outside of acute injury. Please follow-up with physical therapy and obtain a new referral from your PCP as needed. *What to do: *Please continue to take your regular medications as directed. [ ] New medication prescriptions sent to your pharmacy: [ ] [ ] New medication written as a paper prescription [x ] No new medications given *Please follow up with your primary care provider in 2-3 days, call for an appointment. Let them know you were seen in the Emergency Department and that we asked that you be seen for follow-up. We will electronically transmit a record of today's note if your PCP is in our system *If you do not have a primary care provider please contact [phone] to establish care with one of the [facility] primary care providers. *Return to Emergency Department if you should have any new, worsening, or concerning symptoms, such as [fever greater than 101F, chills, worsening pain, persistent vomiting or other bothersome symptoms]. Prescriptions: No Action Disabled Parking Permit 1 ea Not Applicable ONCE (DME) Parking Permit... See Rx Instructions .Route .MEDSUPPLY Qty: 1 0RF Rx Instructions: As directed levothyroxine 125 mcg tablet 250 mcg PO DAILY Qty: 180 1RF Rx Instructions: BRAND NAME SYNTHROID ONLY - NO SUBSTITUTION sildenafil (pulm.hypertension) 20 mg tablet 20 mg PO DAILY Xylitol 2 - 4 tab PO BEDTIME rosuvastatin 10 mg tablet 10 mg PO DAILY Qty: 90 3RF potassium chloride 20 mEq tablet extended release 20 meq PO DAILY metoprolol succinate 100 mg tablet extended release 24 hr 100 mg PO BID clobetasol 0.05 % ointment 1 applic TOPICAL BID PRN (Reason: Skin Irritation) Qty: 15 5RF allopurinol 300 mg tablet 300 mg PO DAILY Qty: 90 3RF Flovent HFA 220 mcg/actuation HFA aerosol inhaler 1 puff inhalation BID PRN nystatin 100,000 unit/gram powder 1 applic topical BID Qty: 60 0RF Rx Instructions: Apply to left groin sotalol 120 mg tablet 120 mg PO BID Multivitamin 50 Plus Tablet 1 tab PO DAILY colchicine 0.6 mg Capsule See Rx Instructions .ROUTE .COMPLEX PRN (Reason: Gout) Rx Instructions: Take 2 tabs orally at onset of gout flare and then 1 tab 1 hour later magnesium oxide 400 mg magnesium Tablet 400 mg PO DAILY torsemide 20 mg tablet 10 mg PO DAILY PRN (Reason: weight gain) warfarin [Jantoven] 5 mg tablet See Rx Instructions .ROUTE .COMPLEX Rx Instructions: 5 mg on Mondays and Wednesdays. 7.5mg all other days acetaminophen [Tylenol] 325 mg capsule 650 mg PO QID PRN (Reason: pain) Qty: 60 0RF Referrals: Bishop Lamb MD [Non-Staff] - Esa Spring MD [Primary Care Provider] - Stand Alone Forms: Patient Portal/API <Bin Reilly, - Last Filed: 08/11/22 21:20> Cosign ED Attending Cosignature Attestation: Dr Reilly Co-Sign Statement: I was available for consultation during this patient's emergency department visit. This chart is signed by myself for administrative purposes only. I did not have direct contact with this patient during this visit. They were seen independently by the APC.
== END 2022-08-11 18:49 | disposition home or self-care (01) ==
PROVIDERS: Emergency Medicine; Emergency Provider Nurse Practitioner Critical Care Medicine; Family Provider Internal Medicine; PCP Internal Medicine
DX: M25.462 Effusion, left knee (principal); I48.20 Chronic atrial fibrillation, unspecified; Z79.01 Long term (current) use of anticoagulants; Z95.0 Presence of cardiac pacemaker; W18.30XA Fall on same level, unspecified, initial encounter; Z96.653 Presence of artificial knee joint, bilateral
CPT/HCPCS: 36415; 73130; 73562; 85025; 85610; 99284

== ENCOUNTER → 2022-08-25 15:54 | Outpatient (CLI) | payer MEDICARE, OTHER, SELFPAY ==
[2022-05-03 08:59] VITALS: BMI 43.9
[2022-08-25 17:07] LABS: Alanine Aminotransferase 23 IU/L (<35); Alkaline Phosphatase 128 U/L (38-126); Aspartate Aminotransferase 31 IU/L (14-36); BUN Creatinine Ratio 26.7 (6-22); Bilirubin Total 0.7 mg/dL (0.2-1.3); Blood Urea Nitrogen 20 mg/dL (7-17); Calcium 8.8 mg/dL (8.4-10.2); Carbon Dioxide 37 mmol/L (22-32); Chloride 94 mmol/L (98-107); Estimated Glomerular Filt Rate > 60 mL/min (>60); Glucose 96 mg/dL (80-110); HEMOLYSIS < 15 (0-50); Magnesium 1.9 mg/dL (1.6-2.3); Potassium 3.7 mmol/L (3.4-5.1); Sodium 139 mmol/L (137-145); Total Protein 7.6 g/dL (6.3-8.2)
[2022-08-25 17:33] LABS: Thyroid Stimulating Hormone 1.81 uIU/mL (0.47-4.68)
[2022-08-27 10:18] LABS: Cholesterol, Total 141 mg/dL (100-199); HDL-Cholesterol 76 mg/dL (>39); HDL-Particle (Total) 31.2 umol/L (>=30.5); LDL Particle 507 nmol/L (<1000); LDL Size 21.4 nm (>20.5); LDL-Cholsterol 49 mg/dL (0-99); LP-IR Score 36 (<=45); Small LDL- Particle <90 nmol/L (<=527); Triglycerides 88 mg/dL (0-149)
[2022-08-27 16:48] LABS: Albumin Globulin Ratio 1.1 (1.0-2.8); Globulin 3.6 g/dL (1.7-4.1)
== END ==
PROVIDERS: Family Provider Internal Medicine; PCP Internal Medicine; Referring Provider Physician Assistant Medical; Visit Provider Physician Assistant Medical
DX: I48.0 Paroxysmal atrial fibrillation (principal); I50.30 Unspecified diastolic (congestive) heart failure; E78.2 Mixed hyperlipidemia
CPT/HCPCS: 36415; 80053; 80061; 83704; 83735; 84443

== ENCOUNTER → 2022-09-03 16:07 | Outpatient (CLI) | payer MEDICARE, OTHER, SELFPAY ==
[2022-05-03 08:59] VITALS: BMI 43.9
[2022-09-03 16:31] LABS: Add Manual Diff / Slide Review NO; Basophils Absolute Auto 0 /uL (0-100); Basophils Percent Auto 1.1 % (0-2); Eosinophils Absolute Auto 100 /uL (0-450); Eosinophils Percent Auto 3.4 % (2-4); Hematocrit 36.9 % (36-46); Hemoglobin 11.8 g/dL (12.0-16.0); Lymphocytes Absolute Auto 900 /uL (1100-4500); Lymphocytes Percent Auto 22.1 % (25-40); Mean Corpuscular HGB Conc 32.1 % (30-36); Mean Corpuscular Hemoglobin 33.7 PG (26-34); Monocytes Absolute Auto 600 /uL (0-900); Monocytes Percent Auto 13.5 % (3-14); Neutrophils Absolute Auto 2500 /uL (1500-7000); Neutrophils Percent Auto 59.9 % (50-75); Platelet Count 221 X10^3/uL (150-400); Red Blood Cell Count 3.52 X10^6/uL (4.0-5.2); Red Cell Distribution Width 14.7 % (11.6-14.8); White Blood Cell Count 4.2 X10^3/uL (4.5-11.0)
[2022-09-03 16:55] LABS: BUN Creatinine Ratio 27.8 (6-22); Blood Urea Nitrogen 20 mg/dL (7-17); Calcium 8.6 mg/dL (8.4-10.2); Carbon Dioxide 39 mmol/L (22-32); Chloride 93 mmol/L (98-107); Estimated Glomerular Filt Rate > 60 mL/min (>60); Glucose 105 mg/dL (80-110); HEMOLYSIS < 15 (0-50); Potassium 3.6 mmol/L (3.4-5.1); Sodium 139 mmol/L (137-145)
== END ==
PROVIDERS: Family Provider Internal Medicine; PCP Internal Medicine; Referring Provider Internal Medicine Cardiovascular Disease; Visit Provider Internal Medicine Cardiovascular Disease
DX: I48.0 Paroxysmal atrial fibrillation (principal)
CPT/HCPCS: 36415; 80048; 85025

== ENCOUNTER → 2022-10-22 15:48 | Outpatient (CLI) | payer MEDICARE, OTHER, SELFPAY ==
[2022-05-03 08:59] VITALS: BMI 43.9
[2022-10-22 16:51] LABS: Add Manual Diff / Slide Review NO; Basophils Absolute Auto 0 /uL (0-100); Basophils Percent Auto 0.7 % (0-2); Eosinophils Absolute Auto 100 /uL (0-450); Eosinophils Percent Auto 3.5 % (2-4); Hematocrit 37.1 % (36-46); Lymphocytes Absolute Auto 1000 /uL (1100-4500); Lymphocytes Percent Auto 27.6 % (25-40); Mean Corpuscular HGB Conc 32.5 % (30-36); Mean Corpuscular Hemoglobin 32.8 PG (26-34); Monocytes Absolute Auto 300 /uL (0-900); Monocytes Percent Auto 9.5 % (3-14); Neutrophils Absolute Auto 2100 /uL (1500-7000); Neutrophils Percent Auto 58.7 % (50-75); Platelet Count 169 X10^3/uL (150-400); Red Blood Cell Count 3.67 X10^6/uL (4.0-5.2); Red Cell Distribution Width 14.1 % (11.6-14.8); White Blood Cell Count 3.6 X10^3/uL (4.5-11.0)
[2022-10-22 17:09] LABS: BUN Creatinine Ratio 23.9 (6-22); Blood Urea Nitrogen 16 mg/dL (7-17); Calcium 8.8 mg/dL (8.4-10.2); Carbon Dioxide 36 mmol/L (22-32); Chloride 97 mmol/L (98-107); Estimated Glomerular Filt Rate > 60 mL/min (>60); Glucose 133 mg/dL (80-110); HEMOLYSIS < 15 (0-50); Sodium 139 mmol/L (137-145)
== END ==
PROVIDERS: Family Provider Internal Medicine; PCP Internal Medicine; Referring Provider Internal Medicine Cardiovascular Disease; Visit Provider Internal Medicine Cardiovascular Disease
DX: I48.0 Paroxysmal atrial fibrillation (principal)
CPT/HCPCS: 36415; 80048; 85025

== ENCOUNTER → 2023-01-12 10:26 | Outpatient (CLI) | payer MEDICARE, OTHER, SELFPAY ==
[2022-05-03 08:59] VITALS: BMI 43.9
[2023-01-12 12:32] LABS: Alanine Aminotransferase 30 IU/L (<35); Albumin 3.8 g/dL (3.5-5.0); Albumin Globulin Ratio 1.2 (1.0-2.8); Alkaline Phosphatase 99 U/L (38-126); Aspartate Aminotransferase 33 IU/L (14-36); BUN Creatinine Ratio 25.6 (6-22); Bilirubin Total 0.8 mg/dL (0.2-1.3); Blood Urea Nitrogen 21 mg/dL (7-17); Carbon Dioxide 36 mmol/L (22-32); Chloride 99 mmol/L (98-107); Estimated Glomerular Filt Rate > 60 mL/min (>60); Globulin 3.3 g/dL (1.7-4.1); Glucose 91 mg/dL (80-110); HEMOLYSIS < 15 (0-50); Magnesium 1.9 mg/dL (1.6-2.3); Sodium 139 mmol/L (137-145); Total Protein 7.1 g/dL (6.3-8.2)
[2023-01-12 13:22] LABS: Thyroid Stimulating Hormone 0.241 uIU/mL (0.47-4.68)
[2023-01-15 18:19] LABS: Cholesterol, Total 143 mg/dL (100-199); HDL-Cholesterol 74 mg/dL (>39); HDL-Particle (Total) 30.7 umol/L (>=30.5); LDL Particle 563 nmol/L (<1000); LDL Size 21.7 nm (>20.5); LDL-Cholsterol 55 mg/dL (0-99); LP-IR Score 47 (<=45); Small LDL- Particle <90 nmol/L (<=527); Triglycerides 69 mg/dL (0-149)
== END ==
PROVIDERS: Family Provider Internal Medicine; PCP Internal Medicine; Referring Provider Specialist; Visit Provider Specialist
DX: I48.0 Paroxysmal atrial fibrillation (principal); E78.2 Mixed hyperlipidemia
CPT/HCPCS: 36415; 80053; 80061; 83704; 83735; 84443

== ENCOUNTER 2023-01-21 12:06 | Emergency (ER) | payer MEDICARE, OTHER, SELFPAY ==
[2022-05-03 08:59] VITALS: BMI 43.9
[2023-01-21 12:16] VITALS: BP 152/68; PULSE 73; RESP 17; TEMP 36.8; O2SAT 100; BMI 44.1
[2023-01-21 12:27] LABS: Add Manual Diff / Slide Review NO; Basophils Absolute Auto 0 /uL (0-100); Basophils Percent Auto 0.5 % (0-2); Eosinophils Absolute Auto 100 /uL (0-450); Eosinophils Percent Auto 1.5 % (2-4); Hematocrit 35.9 % (36-46); Hemoglobin 11.9 g/dL (12.0-16.0); Lymphocytes Absolute Auto 900 /uL (1100-4500); Lymphocytes Percent Auto 15.4 % (25-40); Mean Corpuscular HGB Conc 33.2 % (30-36); Mean Corpuscular Hemoglobin 31.6 PG (26-34); Mean Corpuscular Volume 95.3 fL (80-100); Monocytes Absolute Auto 600 /uL (0-900); Monocytes Percent Auto 10.7 % (3-14); Neutrophils Absolute Auto 4300 /uL (1500-7000); Neutrophils Percent Auto 71.9 % (50-75); Platelet Count 152 X10^3/uL (150-400); Red Blood Cell Count 3.77 X10^6/uL (4.0-5.2); Red Cell Distribution Width 15.1 % (11.6-14.8); White Blood Cell Count 5.9 X10^3/uL (4.5-11.0)
--- NOTE | 2023-01-21 12:41 | ED_ITS ---
HPI - Abdominal Pain <Coby Fournier PA-C - Last Filed: 01/21/23 14:30> General Chief Complaint: Abdominal Pain Stated Complaint: Lower left abd pain Time Seen by Provider: 01/21/23 12:09 Source: patient Mode of arrival: Ambulatory History of Present Illness HPI narrative: 77-year-old woman with a history of chronic back pain, AFib with pacemaker, pulmonary hypertension, severe obesity, hypertension, CHF, inguinal hernia repair presents with concern for left lower quadrant intermittent abdominal pain since yesterday. Patient has difficulty describing the pain and is unsure if it feels like her previous hernia problem or if it feels more like diverticulitis which she says she has had before. She states she feels the pain may be worse with movement but she can not say for sure that anything makes it worse or better. She states it has been very intermittent it does not last very long and she describes it as a sharp pain. She denies any nausea vomiting diarrhea chest pain, shortness of breath she does state yesterday she felt ?chilled? for part of the day, but otherwise has been in her usual state of health, she states she is been eating and drinking normally with no change in appetite. She denies any other complaints or concerns. Related Data Home Medications Medication Instructions Recorded Confirmed colchicine 0.6 mg capsule See Rx Instructions .Route 05/01/20 01/17/23 .COMPLEX PRN Gout magnesium oxide 400 mg PO DAILY 05/01/20 01/17/23 metoprolol succinate 100 mg 100 mg PO BID 01/06/22 01/17/23 tablet,extended release 24 hr potassium chloride 20 mEq 20 meq PO DAILY 01/06/22 01/17/23 tablet,extended release Disabled Parking Permit 1 ea Not Applicable ONCE 05/03/22 01/17/23 Xylitol 2 - 4 tab PO BEDTIME Dry Mouth 07/12/22 01/17/23 fluticasone propionate 220 1 puff inhalation BID PRN 07/12/22 01/17/23 mcg/actuation HFA aerosol inhaler (Flovent HFA) sildenafil (pulm.hypertension) 20 20 mg PO DAILY 07/12/22 01/17/23 mg tablet nystatin 100,000 unit/gram topical 1 applic topical BID PRN 08/18/22 01/17/23 powder rosuvastatin 10 mg tablet 5 mg PO DAILY 08/18/22 01/17/23 torsemide 20 mg tablet 60 mg PO DAILY PRN weight gain 08/18/22 01/17/23 apixaban 5 mg tablet (Eliquis) 5 mg PO BID 01/17/23 01/17/23 Previous Rx's Medication Instructions Recorded acetaminophen 325 mg capsule 650 mg PO QID PRN pain #60 caps 12/23/20 (Tylenol) allopurinol 300 mg tablet 300 mg PO DAILY #90 tabs 01/06/22 clobetasol 0.05 % topical ointment 1 applic topical BID PRN Skin 01/06/22 Irritation #15 grams Parking Permit... #1 ea 05/03/22 Synthroid 125 mcg tablet 250 mcg PO DAILY #180 tabs 11/16/22 (levothyroxine) Synthroid 200 mcg tablet 200 mcg PO DAILY #90 tabs 01/17/23 (levothyroxine) ciprofloxacin HCl 500 mg tablet 500 mg PO BID diverticulitis 10 01/21/23 (Cipro) days #20 tabs Allergies Allergy/AdvReac Type Severity Reaction Status Date / Time amoxicillin [AMOXICILLIN] Allergy Unknown Verified 01/21/23 12:18 benzocaine [BENZOCAINE] Allergy Unknown Verified 01/21/23 12:18 celecoxib [From Celebrex] Allergy Unknown Verified 01/21/23 12:18 cephalexin [CEPHALEXIN] Allergy Unknown Verified 01/21/23 12:18 fluconazole Allergy Unknown Verified 01/21/23 12:18 metronidazole [METRONIDAZOLE] Allergy Unknown Verified 01/21/23 12:18 moxifloxacin Allergy Unknown Verified 01/21/23 12:18 penicillin V Allergy Unknown Verified 01/21/23 12:18 sodium chloride Allergy Unknown Verified 01/21/23 12:18 oxycodone Allergy Verified 01/21/23 12:18 Review of Systems <Coby Fournier PA-C - Last Filed: 01/21/23 14:30> Review of Systems Narrative: See HPI Patient History <Coby Fournier PA-C - Last Filed: 01/21/23 14:30> Medical History Acquired hypothyroidism Afib Ataxia Bilateral carpal tunnel syndrome Chronic anticoagulation Chronic back pain Chronic diastolic (congestive) heart failure Chronic respiratory failure with hypoxia Essential hypertension First degree AV block Gait instability Gout Hypertension Hypothyroidism Left bundle branch block Lipoma of upper arm Mixed hyperlipidemia Obese Obstructive sleep apnea Pacemaker Paroxysmal atrial fibrillation Pulmonary hypertension Severe obesity Third degree heart block Venous (peripheral) insufficiency Viral wart on finger Surgical History H/O cardiac radiofrequency ablation H/O knee surgery Status cardiac pacemaker Social History household members: spouse Smoking Status: Never smoker alcohol intake: current Smoking Status: Never smoker alcohol intake frequency: 3 or more drinks per day Alcohol type: wine Substance Use Type: does not use Exam <Coby Fournier PA-C - Last Filed: 01/21/23 14:30> Narrative Exam Narrative: GENERAL: 77 year old patient appears stated age. Well-developed morbidly obese patient, in mild distress. HEAD: Atraumatic. Normocephalic. EYES: Pupils equal round and reactive. Extraocular motions intact. No scleral icterus. No injection or drainage. ENT: Nose without bleeding, purulent drainage. Airway patent. NECK: Trachea midline. Non tender CARDIOVASCULAR: Regular rate and rhythm without murmurs, gallops, or rubs. RESPIRATORY: Clear to auscultation. Breath sounds equal bilaterally. No wheezes, rales, or rhonchi. GASTROINTESTINAL: Abdomen soft, there is tenderness elicited with palpation over the left lower quadrant, otherwise non-tender, nondistended. EXTREMITIES: No edema or joint tenderness. BACK: Generalized mild tenderness at baseline, without deformity or crepitance. No flank tenderness. Patient has severe back discomfort at baseline with movement from sitting to standing to lying and vice versa. NEURO: AOx3. SKIN: No rash or erythema of visible areas Initial Vital Signs Initial Vital Signs: Vital Signs Temperature 98.3 F 01/21/23 12:16 Pulse Rate 73 01/21/23 12:16 Respiratory Rate 17 01/21/23 12:16 Blood Pressure 152/68 H 01/21/23 12:16 Pulse Oximetry 100 01/21/23 12:16 Oxygen Delivery Method Room Air 01/21/23 12:16 <Lakeshia Valdez DO - Last Filed: 01/22/23 18:09> Initial Vital Signs Initial Vital Signs: Vital Signs Temperature 98.3 F 01/21/23 12:16 Pulse Rate 73 01/21/23 12:16 Respiratory Rate 17 01/21/23 12:16 Blood Pressure 152/68 H 01/21/23 12:16 Pulse Oximetry 100 01/21/23 12:16 Oxygen Delivery Method Room Air 01/21/23 12:16 Course <Coby Fournier PA-C - Last Filed: 01/21/23 14:30> Course Course Narrative: Consulted pharmacy [facility] on this patient given her multiple allergies and concern for her needing antibiotic treatment for her diverticulitis. They recommended either Cipro or levofloxacin. It also speak with patient about her allergies she is unclear on what her reactions are to her allergens except for penicillin and amoxicillin she notes she breaks out in a full body rash. Orders Ordered: Discontinued Medications Ondansetron HCl (Ondansetron 4 Mg Odt) 4 mg PO NOW PRN PRN Reason: Nausea And Vomiting Ondansetron HCl (Ondansetron 4 Mg/2 Ml Inj) 4 mg IV NOW PRN PRN Reason: Nausea And Vomiting Vital Signs Vital signs: Vital Signs - 8 hr 01/21/23 12:16 Temperature 98.3 F Pulse Rate 73 Respiratory Rate 17 Blood Pressure 152/68 H Pulse Oximetry 100 Oxygen Delivery Method Room Air <Lakeshia Valdez DO - Last Filed: 01/22/23 18:09> Orders Ordered: Discontinued Medications Ondansetron HCl (Ondansetron 4 Mg Odt) 4 mg PO NOW PRN PRN Reason: Nausea And Vomiting Ondansetron HCl (Ondansetron 4 Mg/2 Ml Inj) 4 mg IV NOW PRN PRN Reason: Nausea And Vomiting Vital Signs Vital signs: Vital Signs - 8 hr 01/21/23 12:16 Temperature 98.3 F Pulse Rate 73 Respiratory Rate 17 Blood Pressure 152/68 H Pulse Oximetry 100 Oxygen Delivery Method Room Air MDM - Abdominal Pain <Coby Fournier PA-C - Last Filed: 01/21/23 14:30> Differential Diagnosis Differential diagnosis: Likely calculus of kidney, diverticulitis and other (UTI/ chronic pain) Lab Data 01/21/23 12:15 01/21/23 12:15 Labs: Lab Results 01/21/23 01/21/23 Range/Units 12:15 12:15 WBC 5.9 (4.5-11.0) X10^3/uL RBC 3.77 L (4.0-5.2) X10^6/uL Hgb 11.9 L (12.0-16.0) g/dL Hct 35.9 L (36-46) % MCV 95.3 (80-100) fL MCH 31.6 (26-34) PG MCHC 33.2 (30-36) % RDW 15.1 H (11.6-14.8) % Plt Count 152 (150-400) X10^3/uL Neut % (Auto) 71.9 (50-75) % Lymph % (Auto) 15.4 L (25-40) % [place] % (Auto) 10.7 (3-14) % Eos % (Auto) 1.5 L (2-4) % Baso % (Auto) 0.5 (0-2) % Neut # (Auto) 4300 (6778-0171) /uL Lymph # (Auto) 900 L (2672-8079) /uL [place] # (Auto) 600 (0-900) /uL Eos # (Auto) 100 (0-450) /uL Baso # (Auto) 0 (0-100) /uL Sodium 135 L (137-145) mmol/L Potassium 3.6 (3.4-5.1) mmol/L Chloride 96 L (98-107) mmol/L Carbon Dioxide 35 H (22-32) mmol/L BUN 16 (7-17) mg/dL Creatinine 0.69 (0.52-1.04) mg/dL Estimated GFR > 60 (>60) mL/min BUN/Creatinine Ratio 23.2 H (6-22) Glucose 111 H (80-110) mg/dL Calcium 8.5 (8.4-10.2) mg/dL Total Bilirubin 1.5 H (0.2-1.3) mg/dL AST 31 (14-36) IU/L ALT 32 (<35) IU/L Alkaline Phosphatase 111 (38-126) U/L Total Protein 7.6 (6.3-8.2) g/dL Albumin 3.9 (3.5-5.0) g/dL Globulin 3.7 (1.7-4.1) g/dL Albumin/Globulin Ratio 1.1 (1.0-2.8) Lipase 23 (23-300) U/L Point of care testing: Urine Dip Bedside Urine Glucose Negative Bedside Urine Bilirubin - Negative Bedside Urine Ketone - Negative Urine Specific [place] 1.010 Bedside Urine Occult Blood +/- Bedside Urine pH 7.0 Bedside Urine Protein - Negative Bedside Urine Urobilinogen - Negative Bedside Urine Nitrite - Negative Bedside Urine Leukocytes +++ [address] scan - abdomen/pelvis: My Impression: Agree with Radiology interpretation Radiologist's Impression: [address] [address] [address] Scan Report Signed Patient: Keeley Diaz MR#: [id number] : 1945 Acct:[id number] Age/Sex: 77 / F Date of Service: 01/21/23 Loc: ED Accession Number: [id number] ?? Procedure: CT abdomen pelvis w con Ordering Provider: Coby Fournier P.A-C PROCEDURE:? CT ABDOMEN PELVIS W CON ? INDICATIONS:? LLQ abd pain, hx diverticulitis and L inguinal hernia repair ? TECHNIQUE:? After the administration of intravenous contrast, axial sections acquired from the lung bases to the pubic symphysis.? Coronal and sagittal reformats were performed.? For radiation dose reduction, the following was used:? automated exposure control, adjustment of mA and/or kV according to patient size.? ? COMPARISON:? [facility], CT, CT ABDOMEN PELVIS W CON, 04/30/2020, 17:09.? [facility], CT, CT ABDOMEN PELVIS W CON, 05/15/2019, 17:09. ? FINDINGS:? Image quality:? Excellent.? ? Lung bases:? Unremarkable. Heart:? Small pericardial effusion. ? ABDOMEN: Liver:? Unremarkable.? ? Gallbladder:? Unremarkable.? ? Biliary ducts:? Unremarkable.? ? Pancreas:? Unremarkable.? ? Spleen:? Unremarkable.? ? Adrenal Glands:? Unremarkable.? ? Kidneys and Ureters:? Unremarkable.? ? ? Stomach and Bowel:? Stomach, small bowel loops, and colon within the abdomen are unremarkable.? Peritoneum:? No abnormal intraperitoneal fluid.? No free air.? ? Ventral Wall: ? No hernias.? Abdominal Nodes:? No retroperitoneal or mesenteric adenopathy by size criteria.? Vessels:? Aorta and inferior vena cava are normal in size.? ? PELVIS: Pelvic Organs:? Unremarkable.? ? Bladder:? Unremarkable.? ? Pelvic Nodes: No enlarged lymph nodes.? Miscellaneous: No hernias are seen. ? Note is made of extensive sigmoid diverticulosis within the pelvis, and acute diverticulitis with pericolonic edema in the surrounding fat is present.? This is best seen centered on series 2, image 65 but there is no associated peridiverticular abscess.? ? Bones:? Unremarkable.? IMPRESSION:? Left lower quadrant pelvic extensive sigmoid diverticulosis with acute diverticulitis, but no peridiverticular abscess is associated.? Normal appendix was found at the right lower quadrant.? Incidental note is made of a small pericardial effusion. ? ? Dictated by: Enoc Salamanca M.D. on 01/21/2023 at 13:08 ? ? Approved by: Enoc Salamanca M.D. on 01/21/2023 at 13:10?? Treatment and Disposition Shared decision making:: Shared decision-making was used to determining plan for evaluation today in the emergency department and plan for outpatient follow-up and medications MDM Narrative Medical decision making narrative: This is a 77-year-old woman with extensive medical history including chronic low back pain, multiple allergies, diverticulitis, ambulates with cane, severe obesity, cardiac pacemaker who presents today with concern for intermittent sharp left lower quadrant pain since yesterday. Exam and history are concerning for diverticulitis and patient ultimately was agreeable to CT scan declined pain medication to lie flat for scanner, CT scan did reveal a sigmoid diverticulitis with inflammation without abscess, after discussion with pharmacist the patient was prescribed ciprofloxacin. Her labs today were generally at baseline, she did have slight increased bilirubin at 1.5 with no leukocytosis, also leukocytes present in her urine, suspect this was not a true clean catch--though urine is sent for culture for further evaluation. She has multiple allergies including an allergy to moxifloxacin although patient was unable to remember what type of reaction she has with this. She does note she has been treated for diverticulitis in the past with antibiotics successfully without reaction. Prescription sent in and patient is counseled to monitor c arefully for signs of allergic reaction, she is advised to follow up closely with her primary care provider as well as follow-up considered with General surgery. A mild pericardial effusion was also noted on her CT abdomen pelvis. Patient denies chest pain shortness of breath or other symptoms associated with this. Return precautions provided, follow-up plan discussed, all questions answered. <Lakeshia C José Miguel, DO - Last Filed: 01/22/23 18:09> Lab Data Labs: Lab Results 01/21/23 01/21/23 Range/Units 12:15 12:15 WBC 5.9 (4.5-11.0) X10^3/uL RBC 3.77 L (4.0-5.2) X10^6/uL Hgb 11.9 L (12.0-16.0) g/dL Hct 35.9 L (36-46) % MCV 95.3 (80-100) fL MCH 31.6 (26-34) PG MCHC 33.2 (30-36) % RDW 15.1 H (11.6-14.8) % Plt Count 152 (150-400) X10^3/uL Neut % (Auto) 71.9 (50-75) % Lymph % (Auto) 15.4 L (25-40) % [place] % (Auto) 10.7 (3-14) % Eos % (Auto) 1.5 L (2-4) % Baso % (Auto) 0.5 (0-2) % Neut # (Auto) 4300 (8668-2936) /uL Lymph # (Auto) 900 L (2747-4322) /uL [place] # (Auto) 600 (0-900) /uL Eos # (Auto) 100 (0-450) /uL Baso # (Auto) 0 (0-100) /uL Sodium 135 L (137-145) mmol/L Potassium 3.6 (3.4-5.1) mmol/L Chloride 96 L (98-107) mmol/L Carbon Dioxide 35 H (22-32) mmol/L BUN 16 (7-17) mg/dL Creatinine 0.69 (0.52-1.04) mg/dL Estimated GFR > 60 (>60) mL/min BUN/Creatinine Ratio 23.2 H (6-22) Glucose 111 H (80-110) mg/dL Calcium 8.5 (8.4-10.2) mg/dL Total Bilirubin 1.5 H (0.2-1.3) mg/dL AST 31 (14-36) IU/L ALT 32 (<35) IU/L Alkaline Phosphatase 111 (38-126) U/L Total Protein 7.6 (6.3-8.2) g/dL Albumin 3.9 (3.5-5.0) g/dL Globulin 3.7 (1.7-4.1) g/dL Albumin/Globulin Ratio 1.1 (1.0-2.8) Lipase 23 (23-300) U/L Point of care testing: Urine Dip Bedside Urine Glucose Negative Bedside Urine Bilirubin - Negative Bedside Urine Ketone - Negative Urine Specific [place] 1.010 Bedside Urine Occult Blood +/- Bedside Urine pH 7.0 Bedside Urine Protein - Negative Bedside Urine Urobilinogen - Negative Bedside Urine Nitrite - Negative Bedside Urine Leukocytes +++ 500 Esterase Discharge Plan Departure Patient Disposition: Home Clinical Impression: Diverticulitis of sigmoid colon Instructions: Diverticulitis Activity Restrictions/Additional Instructions: *You have been diagnosed with [diverticulitis] *What to do: *Please continue to take your regular medications as directed. [ 1] New medication prescriptions sent to your pharmacy: [Ciprofloxacin] [ ] New medication written as a paper prescription [ ] No new medications given *Please follow up with your primary care provider in 2-3 days, call for an appointment. Let them know you were seen in the Emergency Department and that we ask that you be seen in follow up. We will electronically transmit a record of today's note if your PCP is in our system. Due to your extensive allergies it was difficult to find a good option for medication to treat this, after speaking with the pharmacist they did recommend trying a medication that is different f rom 1 that you have had a previous reaction to but that is in a similar class of medication so it will be important that you monitor carefully for signs of allergic reaction particularly rash, shortness of breath or swelling. You were unsure what your reaction was in the past too many of your allergens and I am hopeful that you will tolerate this medication well. I also recommend that you follow-up with general surgery as an outpatient for further evaluation/a recheck. You can also talk to your primary care provider about this. And follow-up with them. *If you do not have a primary care provider please contact the [facility] Resource line at [phone]. They will ask some questions about your medical history and help get you set up with a doctor in the community. *Return to Emergency Department if you should have any new, worsening or concerning symptoms, such as [fever greater than 101 F, shaking chills, worsening pain, persistent vomiting or other bothersome symptoms] Prescriptions: New ciprofloxacin HCl [Cipro] 500 mg tablet 500 mg PO BID 10 Days Qty: 20 0RF No Action levothyroxine [Synthroid] 125 mcg tablet 250 mcg PO DAILY Qty: 180 1RF Rx Instructions: BRAND NAME SYNTHROID ONLY - NO SUBSTITUTION Disabled Parking Permit 1 ea Not Applicable ONCE (DME) Parking Permit... See Rx Instructions .Route .MEDSUPPLY Qty: 1 0RF Rx Instructions: As directed sildenafil (pulm.hypertension) 20 mg tablet 20 mg PO DAILY Xylitol 2 - 4 tab PO BEDTIME potassium chloride 20 mEq tablet extended release 20 meq PO DAILY metoprolol succinate 100 mg tablet extended release 24 hr 100 mg PO BID clobetasol 0.05 % ointment 1 applic TOPICAL BID PRN (Reason: Skin Irritation) Qty: 15 5RF allopurinol 300 mg tablet 300 mg PO DAILY Qty: 90 3RF Flovent HFA 220 mcg/actuation HFA aerosol inhaler 1 puff inhalation BID PRN nystatin 100,000 unit/gram powder 1 applic topical BID PRN Rx Instructions: Apply to left groin rosuvastatin 10 mg tablet 5 mg PO DAILY Eliquis 5 mg tablet 5 mg PO BID levothyroxine [Synthroid] 200 mcg tablet 200 mcg PO DAILY Qty: 90 1RF Rx Instructions: No substituion, brand name only colchicine 0.6 mg Capsule See Rx Instructions .ROUTE .COMPLEX PRN (Reason: Gout) Rx Instructions: Take 2 tabs orally at onset of gout flare and then 1 tab 1 hour later magnesium oxide 400 mg magnesium Tablet 400 mg PO DAILY torsemide 20 mg tablet 60 mg PO DAILY PRN (Reason: weight gain) acetaminophen [Tylenol] 325 mg capsule 650 mg PO QID PRN (Reason: pain) Qty: 60 0RF Referrals: Tayler Ring MD [Physician] - Esa Spring MD [Primary Care Provider] - Stand Alone Forms: Patient Portal/API <Lakeshia Valdez DO - Last Filed: 01/22/23 18:09> Cosign ED Attending Cosdonatoature Attestation: I was immediately available in the department for consultation. Documentation has been reviewed.
--- NOTE | 2023-01-21 12:41 | DI.CT.S_ITS ---
PROCEDURE: CT ABDOMEN PELVIS W CON INDICATIONS: LLQ abd pain, hx diverticulitis and L inguinal hernia repair TECHNIQUE: After the administration of intravenous contrast, axial sections acquired from the lung bases to the pubic symphysis. Coronal and sagittal reformats were performed. For radiation dose reduction, the following was used: automated exposure control, adjustment of mA and/or kV according to patient size. COMPARISON: [facility], CT, CT ABDOMEN PELVIS W CON, 04/30/2020, 17:09. [facility], CT, CT ABDOMEN PELVIS W CON, 05/15/2019, 17:09. FINDINGS: Image quality: Excellent. Lung bases: Unremarkable. Heart: Small pericardial effusion. ABDOMEN: Liver: Unremarkable. Gallbladder: Unremarkable. Biliary ducts: Unremarkable. Pancreas: Unremarkable. Spleen: Unremarkable. Adrenal Glands: Unremarkable. Kidneys and Ureters: Unremarkable. Stomach and Bowel: Stomach, small bowel loops, and colon within the abdomen are unremarkable. Peritoneum: No abnormal intraperitoneal fluid. No free air. Ventral Wall: No hernias. Abdominal Nodes: No retroperitoneal or mesenteric adenopathy by size criteria. Vessels: Aorta and inferior vena cava are normal in size. PELVIS: Pelvic Organs: Unremarkable. Bladder: Unremarkable. Pelvic Nodes: No enlarged lymph nodes. Miscellaneous: No hernias are seen. Note is made of extensive sigmoid diverticulosis within the pelvis, and acute diverticulitis with pericolonic edema in the surrounding fat is present. This is best seen centered on series 2, image 65 but there is no associated peridiverticular abscess. Bones: Unremarkable. IMPRESSION: Left lower quadrant pelvic extensive sigmoid diverticulosis with acute diverticulitis, but no peridiverticular abscess is associated. Normal appendix was found at the right lower quadrant. Incidental note is made of a small pericardial effusion. Dictated by: Enoc Salamanca M.D. on 01/21/2023 at 13:08 Approved by: Enoc Salamanca M.D. on 01/21/2023 at 13:10
[2023-01-21 12:42] LABS: Alanine Aminotransferase 32 IU/L (<35); Albumin 3.9 g/dL (3.5-5.0); Albumin Globulin Ratio 1.1 (1.0-2.8); Alkaline Phosphatase 111 U/L (38-126); Aspartate Aminotransferase 31 IU/L (14-36); BUN Creatinine Ratio 23.2 (6-22); Bilirubin Total 1.5 mg/dL (0.2-1.3); Blood Urea Nitrogen 16 mg/dL (7-17); Calcium 8.5 mg/dL (8.4-10.2); Carbon Dioxide 35 mmol/L (22-32); Chloride 96 mmol/L (98-107); Estimated Glomerular Filt Rate > 60 mL/min (>60); Globulin 3.7 g/dL (1.7-4.1); Glucose 111 mg/dL (80-110); HEMOLYSIS < 15 (0-50); Lipase 23 U/L (23-300); Potassium 3.6 mmol/L (3.4-5.1); Sodium 135 mmol/L (137-145); Total Protein 7.6 g/dL (6.3-8.2)
[2023-01-21 13:00] VITALS: BP 174/79; PULSE 96; O2SAT 94
[2023-01-21 13:30] VITALS: BP 134/83; PULSE 74; O2SAT 95
[2023-01-21 14:33] VITALS: BP 162/74; PULSE 79; O2SAT 97
== END 2023-01-21 14:34 | disposition home or self-care (01) ==
PROVIDERS: Emergency Medicine; Emergency Provider Student in an Organized Health Care Education/Training Program; Family Provider Internal Medicine; PCP Internal Medicine
DX: K57.32 Diverticulitis of large intestine without perforation or abscess without bleeding (principal); R10.9 Unspecified abdominal pain; Z79.01 Long term (current) use of anticoagulants
CPT/HCPCS: 36415; 74177; 80053; 81003; 83690; 85025; 87077; 87086; 87186; 93005; 99284

== ENCOUNTER 2023-04-05 11:35 | Emergency (ER) | payer MEDICARE, OTHER, SELFPAY ==
[2022-05-03 08:59] VITALS: BMI 43.9
[2023-04-05] VITALS (7 sets, daily range): BP systolic 142–152; BP diastolic 66–83; PULSE 77–87; RESP 11–24; TEMP 36.6; O2SAT 96–97; BMI 45.6
--- NOTE | 2023-04-05 11:57 | ED.GENADULT ---
HPI - General Adult General Chief complaint: Dizziness Stated complaint: dizzy this morning Time Seen by Provider: 04/05/23 11:41 Source: patient and family Mode of arrival: Family Vehicle History of Present Illness HPI narrative: Patient is an 78-year-old female. She does have history of AFib. Is on apixaban. Also has a [employer] pacemaker in place. She is here for evaluation of an episode of dizziness that she had this morning. She was standing in the bathroom when she states she had a fairly sudden onset of lightheadedness and a vertigo sensation. No chest pain. No shortness of breath. No headache. She states she had to hold onto the sink. She was able to sit down. She did not fall. Did not hit her head. Stated that she rested until she could get up and make it down the hallway in order to get her phone. She called family members and also her primary doctor. She also called 911. Apparently she was evaluated by EMS however she came to the emergency department by private vehicle. States her symptoms have improved but not completely resolved. Related Data Home Medications Medication Instructions Recorded Confirmed colchicine (gout) 0.6 mg capsule See Rx Instructions .Route 05/01/20 01/24/23 .COMPLEX PRN Gout magnesium oxide 400 mg PO DAILY 05/01/20 01/24/23 metoprolol succinate 100 mg 100 mg PO BID 01/06/22 01/24/23 tablet,extended release 24 hr potassium chloride 20 mEq 20 meq PO DAILY 01/06/22 01/24/23 tablet,extended release Disabled Parking Permit 1 ea Not Applicable ONCE 05/03/22 01/24/23 Xylitol 2 - 4 tab PO BEDTIME Dry Mouth 07/12/22 01/24/23 fluticasone propionate 220 1 puff inhalation BID PRN 07/12/22 01/24/23 mcg/actuation HFA aerosol inhaler (Flovent HFA) sildenafil (pulm.hypertension) 20 20 mg PO DAILY 07/12/22 01/24/23 mg tablet nystatin 100,000 unit/gram topical 1 applic topical BID PRN 08/18/22 01/24/23 powder rosuvastatin 10 mg tablet 5 mg PO DAILY 08/18/22 01/24/23 torsemide 20 mg tablet 60 mg PO DAILY PRN weight gain 08/18/22 01/24/23 apixaban 5 mg tablet (Eliquis) 5 mg PO BID 01/17/23 01/24/23 Previous Rx's Medication Instructions Recorded acetaminophen 325 mg capsule 650 mg PO QID PRN pain #60 caps 12/23/20 (Tylenol) allopurinol 300 mg tablet 300 mg PO DAILY #90 tabs 01/06/22 clobetasol 0.05 % topical ointment 1 applic topical BID PRN Skin 01/06/22 Irritation #15 grams Parking Permit... #1 ea 05/03/22 Synthroid 125 mcg tablet 250 mcg PO DAILY #180 tabs 11/16/22 (levothyroxine) Synthroid 200 mcg tablet 200 mcg PO DAILY #90 tabs 01/17/23 (levothyroxine) Allergies Allergy/AdvReac Type Severity Reaction Status Date / Time amoxicillin [AMOXICILLIN] Allergy Unknown Verified 01/24/23 11:40 benzocaine [BENZOCAINE] Allergy Unknown Verified 01/24/23 11:40 celecoxib [From Celebrex] Allergy Unknown Verified 01/24/23 11:40 cephalexin [CEPHALEXIN] Allergy Unknown Verified 01/24/23 11:40 fluconazole Allergy Unknown Verified 01/24/23 11:40 metronidazole [METRONIDAZOLE] Allergy Unknown Verified 01/24/23 11:40 moxifloxacin Allergy Unknown Verified 01/24/23 11:40 penicillin V Allergy Unknown Verified 01/24/23 11:40 sodium chloride Allergy Unknown Verified 01/24/23 11:40 oxycodone Allergy Verified 01/24/23 11:40 Review of Systems Constitutional Constitutional: Reports system reviewed and no additional complaints, except as documented ENT Ears, Nose, Mouth, and Throat: Reports system reviewed and no additional complaints, except as documented Cardiovascular Cardiovascular: Reports system reviewed and no additional complaints, except as documented Respiratory Respiratory: Reports system reviewed and no additional complaints, except as documented Gastrointestinal Gastrointestinal: Reports system reviewed and no additional complaints, except as documented Musculoskeletal Musculoskeletal: Reports system reviewed and no additional complaints, except as documented Integumentary/Breasts Skin/Breast: Reports system reviewed and no additional complaints, except as documented Neurologic Neurologic: Reports system reviewed and no additional complaints, except as documented Hematologic/Lymphatic On Anticoagulants: Yes Patient History Medical History Acquired hypothyroidism Afib Ataxia Bilateral carpal tunnel syndrome Chronic anticoagulation Chronic back pain Chronic diastolic (congestive) heart failure Chronic respiratory failure with hypoxia Essential hypertension First degree AV block Gait instability Gout Hypertension Hypothyroidism Left bundle branch block Lipoma of upper arm Mixed hyperlipidemia Obese Obstructive sleep apnea Pacemaker Paroxysmal atrial fibrillation Pulmonary hypertension Severe obesity Third degree heart block Venous (peripheral) insufficiency Viral wart on finger Surgical History H/O cardiac radiofrequency ablation H/O knee surgery Status cardiac pacemaker Social History household members: spouse Smoking Status: Former smoker alcohol intake: current Smoking Status: Former smoker tobacco type: cigarettes alcohol intake frequency: 3 or more drinks per day Alcohol type: wine Substance Use Type: does not use Exam Initial Vital Signs Initial Vital Signs: Vital Signs Temperature 97.8 F 04/05/23 11:45 Pulse Rate 87 04/05/23 11:45 Respiratory Rate 16 04/05/23 11:45 Blood Pressure 152/83 H 04/05/23 11:45 Pulse Oximetry 97 04/05/23 11:45 Oxygen Delivery Method Room Air 04/05/23 11:45 Const General: cooperative, comfortable and No ill appearing HENMT Head: normal to inspection and normocephalic Resp Effort & Inspection: normal respiratory effort Auscultation: clear to auscultation bilaterally Cardio Rate: regular rate Rhythm: regular rhythm GI Inspection: normal to inspection and non-distended Skin General: no rashes or lesions noted Neuro General: patient alert, patient awake, patient oriented x3 and moves all extremities Extrem General: normal to inspection and capillary refill normal Course Orders Ordered: ED Orders 04/05/23 11:42 EKG-12 Lead Stat 04/05/23 12:09 Complete Blood Count AUTO DIFF Stat Comprehensive Metabolic Panel Stat Lipase Stat Vital Signs Vital signs: Vital Signs - 8 hr 04/05/23 11:45 04/05/23 12:06 04/05/23 12:30 Temperature 97.8 F Pulse Rate 87 81 79 Respiratory Rate 16 16 11 L Blood Pressure 152/83 H Pulse Oximetry 97 97 97 Oxygen Delivery Method Room Air 04/05/23 12:31 04/05/23 12:31 04/05/23 13:00 Temperature Pulse Rate 77 Respiratory Rate 15 Blood Pressure 151/74 H 142/66 H Pulse Oximetry 96 Oxygen Delivery Method 04/05/23 13:00 Temperature Pulse Rate 77 Respiratory Rate 16 Blood Pressure Pulse Oximetry 97 Oxygen Delivery Method Medical Decision Making Lab Data 04/05/23 12:09 04/05/23 12:09 Labs: Lab Results 04/05/23 04/05/23 Range/Units 12:09 12:09 WBC 3.5 L (4.5-11.0) X10^3/uL RBC 3.71 L (4.0-5.2) X10^6/uL Hgb 12.1 (12.0-16.0) g/dL Hct 35.7 L (36-46) % MCV 96.1 (80-100) fL MCH 32.5 (26-34) PG MCHC 33.8 (30-36) % RDW 15.5 H (11.6-14.8) % Plt Count 159 (150-400) X10^3/uL Neut % (Auto) 58.9 (50-75) % Lymph % (Auto) 26.1 (25-40) % [place] % (Auto) 10.2 (3-14) % Eos % (Auto) 4.0 (2-4) % Baso % (Auto) 0.8 (0-2) % Neut # (Auto) 2100 (5563-0956) /uL Lymph # (Auto) 900 L (3619-7467) /uL [place] # (Auto) 400 (0-900) /uL Eos # (Auto) 100 (0-450) /uL Baso # (Auto) 0 (0-100) /uL Sodium 138 (137-145) mmol/L Potassium 3.8 (3.4-5.1) mmol/L Chloride 98 (98-107) mmol/L Carbon Dioxide 34 H (22-32) mmol/L BUN 16 (7-17) mg/dL Creatinine 0.68 (0.52-1.04) mg/dL Estimated GFR > 60 (>60) mL/min BUN/Creatinine Ratio 23.5 H (6-22) Glucose 97 (80-110) mg/dL Calcium 8.9 (8.4-10.2) mg/dL Total Bilirubin 0.9 (0.2-1.3) mg/dL AST 29 (14-36) IU/L ALT 26 (<35) IU/L Alkaline Phosphatase 107 (38-126) U/L Total Protein 7.2 (6.3-8.2) g/dL Albumin 3.9 (3.5-5.0) g/dL Globulin 3.3 (1.7-4.1) g/dL Albumin/Globulin Ratio 1.2 (1.0-2.8) Lipase 34 (23-300) U/L ECG Data Attestation: I personally reviewed and interpreted this ECG as follows: Interpretation: Atrial fibrillation Ventricular rate 82 Left axis deviation MDM Narrative Medical decision making narrative: Patient has been relatively asymptomatic since arrival here to the emergency department. For labs are unremarkable. She declined an IV. During her time here she stated that her symptoms have completely resolved. She ambulated around the department and got a little lightheaded right at the end but then sitting back down in bed her symptoms have resolved once again. We did interrogate her pacemaker. Received a call from the [email or web address] who stated that she is in AFib but she is been in AFib since the beginning of the year. She is 2.8 months of battery life left. There were no abnormal arrhythmias other than the AFib during the period of time this morning where she was having symptoms. She knows about the battery life and the plan was to have this replaced in May this year. Her electrolytes were unremarkable. She has had issues with balance in the past in his seen physical therapy for this. She states when she was 18 she was diagnosed with Meniere's disease. Plan will be to discharge home and have plan follow-up with her primary doctor. She was given return precautions. She expressed understanding and agreement. Discharge Plan Departure Patient Disposition: Home Clinical Impression: Dizziness Instructions: DI for Dizziness-Nonvertigo Activity Restrictions/Additional Instructions: I recommend that you continue to take all of your medications as directed. I also recommend you contact the Ear Nose and Throat doctor at the number provided below for follow-up. Return to the emergency department for new or worsening symptoms. Prescriptions: No Action levothyroxine [Synthroid] 125 mcg tablet 250 mcg PO DAILY Qty: 180 1RF Rx Instructions: BRAND NAME SYNTHROID ONLY - NO SUBSTITUTION Disabled Parking Permit 1 ea Not Applicable ONCE (DME) Parking Permit... See Rx Instructions .Route .MEDSUPPLY Qty: 1 0RF Rx Instructions: As directed sildenafil (pulm.hypertension) 20 mg tablet 20 mg PO DAILY Xylitol 2 - 4 tab PO BEDTIME potassium chloride 20 mEq tablet extended release 20 meq PO DAILY metoprolol succinate 100 mg tablet extended release 24 hr 100 mg PO BID clobetasol 0.05 % ointment 1 applic TOPICAL BID PRN (Reason: Skin Irritation) Qty: 15 5RF allopurinol 300 mg tablet 300 mg PO DAILY Qty: 90 3RF Flovent HFA 220 mcg/actuation HFA aerosol inhaler 1 puff inhalation BID PRN nystatin 100,000 unit/gram powder 1 applic topical BID PRN Rx Instructions: Apply to left groin rosuvastatin 10 mg tablet 5 mg PO DAILY Eliquis 5 mg tablet 5 mg PO BID levothyroxine [Synthroid] 200 mcg tablet 200 mcg PO DAILY Qty: 90 1RF Rx Instructions: No substituion, brand name only colchicine (gout) 0.6 mg Capsule See Rx Instructions .ROUTE .COMPLEX PRN (Reason: Gout) Rx Instructions: Take 2 tabs orally at onset of gout flare and then 1 tab 1 hour later magnesium oxide 400 mg magnesium Tablet 400 mg PO DAILY torsemide 20 mg tablet 60 mg PO DAILY PRN (Reason: weight gain) acetaminophen [Tylenol] 325 mg capsule 650 mg PO QID PRN (Reason: pain) Qty: 60 0RF Referrals: Barrett Carlos MD [Physician] - Esa Spring MD [Primary Care Provider] - Stand Alone Forms: Patient Portal/API
[2023-04-05 12:26] LABS: Add Manual Diff / Slide Review NO; Basophils Absolute Auto 0 /uL (0-100); Basophils Percent Auto 0.8 % (0-2); Eosinophils Absolute Auto 100 /uL (0-450); Hematocrit 35.7 % (36-46); Hemoglobin 12.1 g/dL (12.0-16.0); Lymphocytes Absolute Auto 900 /uL (1100-4500); Lymphocytes Percent Auto 26.1 % (25-40); Mean Corpuscular HGB Conc 33.8 % (30-36); Mean Corpuscular Hemoglobin 32.5 PG (26-34); Mean Corpuscular Volume 96.1 fL (80-100); Monocytes Absolute Auto 400 /uL (0-900); Monocytes Percent Auto 10.2 % (3-14); Neutrophils Absolute Auto 2100 /uL (1500-7000); Neutrophils Percent Auto 58.9 % (50-75); Platelet Count 159 X10^3/uL (150-400); Red Blood Cell Count 3.71 X10^6/uL (4.0-5.2); Red Cell Distribution Width 15.5 % (11.6-14.8); White Blood Cell Count 3.5 X10^3/uL (4.5-11.0)
[2023-04-05 12:29] LABS: Alanine Aminotransferase 26 IU/L (<35); Albumin 3.9 g/dL (3.5-5.0); Albumin Globulin Ratio 1.2 (1.0-2.8); Alkaline Phosphatase 107 U/L (38-126); Aspartate Aminotransferase 29 IU/L (14-36); BUN Creatinine Ratio 23.5 (6-22); Bilirubin Total 0.9 mg/dL (0.2-1.3); Blood Urea Nitrogen 16 mg/dL (7-17); Calcium 8.9 mg/dL (8.4-10.2); Carbon Dioxide 34 mmol/L (22-32); Chloride 98 mmol/L (98-107); Estimated Glomerular Filt Rate > 60 mL/min (>60); Globulin 3.3 g/dL (1.7-4.1); Glucose 97 mg/dL (80-110); HEMOLYSIS < 15 (0-50); Lipase 34 U/L (23-300); Potassium 3.8 mmol/L (3.4-5.1); Sodium 138 mmol/L (137-145); Total Protein 7.2 g/dL (6.3-8.2)
--- NOTE | 2023-04-05 12:36 | PC.NURSE ---
Pt refused IV. notified and advised to hold it. Called lab to draw blood.
--- NOTE | 2023-04-05 13:25 | PC.NURSE ---
Addendum entered by Kina Stock CNA 04/05/23 13:27: PT used personal trekking poles as walking device. Original Note: GYMNASTIC TEACHER Note: This GYMNASTIC TEACHER assisted in ambulating the pt around the ER floor. Throughout, pt stated that they did not feel any fatigue or dizziness. PT passed ambulation trial.
== END 2023-04-05 14:00 | disposition home or self-care (01) ==
PROVIDERS: Emergency Provider Emergency Medicine; Family Provider Internal Medicine; PCP Internal Medicine
DX: R42 Dizziness and giddiness (principal); R07.9 Chest pain, unspecified; Z79.01 Long term (current) use of anticoagulants; Z95.0 Presence of cardiac pacemaker
CPT/HCPCS: 36415; 80053; 83690; 85025; 93005; 99283; 99284

== ENCOUNTER → 2023-05-07 12:20 | Outpatient (CLI) | payer MEDICARE, OTHER, SELFPAY ==
[2022-05-03 08:59] VITALS: BMI 43.9
[2023-05-07 13:01] LABS: Add Manual Diff / Slide Review NO; Basophils Absolute Auto 0 /uL (0-100); Basophils Percent Auto 0.7 % (0-2); Eosinophils Absolute Auto 100 /uL (0-450); Eosinophils Percent Auto 3.5 % (2-4); Hematocrit 36.8 % (36-46); Hemoglobin 12.2 g/dL (12.0-16.0); Lymphocytes Absolute Auto 1200 /uL (1100-4500); Lymphocytes Percent Auto 30.6 % (25-40); Mean Corpuscular HGB Conc 33.1 % (30-36); Mean Corpuscular Hemoglobin 32.6 PG (26-34); Mean Corpuscular Volume 98.6 fL (80-100); Monocytes Absolute Auto 400 /uL (0-900); Monocytes Percent Auto 10.6 % (3-14); Neutrophils Absolute Auto 2200 /uL (1500-7000); Neutrophils Percent Auto 54.6 % (50-75); Platelet Count 166 X10^3/uL (150-400); Red Blood Cell Count 3.73 X10^6/uL (4.0-5.2); Red Cell Distribution Width 16.1 % (11.6-14.8); White Blood Cell Count 3.9 X10^3/uL (4.5-11.0)
[2023-05-07 13:17] LABS: BUN Creatinine Ratio 25.3 (6-22); Blood Urea Nitrogen 21 mg/dL (7-17); Calcium 9.2 mg/dL (8.4-10.2); Carbon Dioxide 35 mmol/L (22-32); Chloride 95 mmol/L (98-107); Estimated Glomerular Filt Rate > 60 mL/min (>60); Glucose 92 mg/dL (80-110); HEMOLYSIS < 15 (0-50); Potassium 3.8 mmol/L (3.4-5.1); Sodium 138 mmol/L (137-145)
== END ==
PROVIDERS: Family Provider Internal Medicine; PCP Internal Medicine; Referring Provider Specialist; Visit Provider Internal Medicine Cardiovascular Disease
DX: R06.09 Other forms of dyspnea (principal); I48.11 Longstanding persistent atrial fibrillation
CPT/HCPCS: 36415; 80048; 85025

== ENCOUNTER → 2023-08-22 13:57 | Outpatient (CLI) | payer MEDICARE, OTHER, SELFPAY ==
[2022-05-03 08:59] VITALS: BMI 43.9
--- NOTE | 2023-08-22 | DI.MG.S_ITS ---
BILATERAL DIGITAL SCREENING MAMMOGRAM 3D/2D WITH CAD: 08/22/2023 CLINICAL: Routine screening. Comparison is made to exam dated: 08/23/2016 mammogram - [facility]. Both breasts are almost entirely fatty (category a/<25% glandular tissue). Current study was also evaluated with a Computer Aided Detection (CAD) system. There is a stable benign focal asymmetry in the left breast. No significant masses, calcifications, or other findings are seen in either breast. There has been no significant interval change. IMPRESSION: BENIGN There is no mammographic evidence of malignancy. A 1 year screening mammogram is recommended. Based on the Tyrer Cuzick model (a risk assessment model) the patient's lifetime risk is 0.8% and her 10 year risk is 0.0%. According to the ACR, ACS, and NCCN guidelines, an annual breast MRI exam along with mammogram is recommended if the patient's lifetime risk is 20% or greater. This exam was interpreted at Station ID: [id number]. NOTE: For mammograms, a report in lay terms will be sent to the patient. Approximately 15% of breast malignancies will not be visualized mammographically. In the management of a palpable breast mass, a negative mammogram must not discourage biopsy of a clinically suspicious lesion. Electronically Signed By: Jackie [email or web address]:08/22/2023 16:08:21 letter sent: Normal Exam ACR BI-RADS Category 2: Benign Finding(s) [id number]
== END ==
PROVIDERS: Family Provider Internal Medicine; PCP Internal Medicine; Referring Provider Internal Medicine; Visit Provider Internal Medicine
DX: Z12.31 Encounter for screening mammogram for malignant neoplasm of breast (principal)
CPT/HCPCS: 77063; 77067

== ENCOUNTER → 2023-11-26 11:27 | Outpatient (CLI) | payer MEDICARE, OTHER, SELFPAY ==
[2022-05-03 08:59] VITALS: BMI 43.9
[2023-11-26 11:54] LABS: Add Manual Diff / Slide Review NO; Basophils Absolute Auto 0 /uL (0-100); Eosinophils Absolute Auto 100 /uL (0-450); Eosinophils Percent Auto 3.8 % (2-4); Hematocrit 37.4 % (36-46); Hemoglobin 12.2 g/dL (12.0-16.0); Lymphocytes Absolute Auto 1000 /uL (1100-4500); Lymphocytes Percent Auto 27.8 % (25-40); Mean Corpuscular HGB Conc 32.7 % (30-36); Mean Corpuscular Hemoglobin 34.5 PG (26-34); Mean Corpuscular Volume 105.6 fL (80-100); Monocytes Absolute Auto 400 /uL (0-900); Monocytes Percent Auto 11.4 % (3-14); Neutrophils Absolute Auto 2100 /uL (1500-7000); Platelet Count 159 X10^3/uL (150-400); Red Blood Cell Count 3.54 X10^6/uL (4.0-5.2); Red Cell Distribution Width 14.5 % (11.6-14.8); White Blood Cell Count 3.7 X10^3/uL (4.5-11.0)
[2023-11-26 14:05] LABS: Alanine Aminotransferase 23 IU/L (<35); Albumin 4.2 g/dL (3.5-5.0); Albumin Globulin Ratio 1.4 (1.0-2.8); Alkaline Phosphatase 106 U/L (38-126); Aspartate Aminotransferase 37 IU/L (14-36); BUN Creatinine Ratio 23.3 (6-22); Bilirubin Total 0.9 mg/dL (0.2-1.3); Blood Urea Nitrogen 17 mg/dL (7-17); Calcium 8.8 mg/dL (8.4-10.2); Carbon Dioxide 32 mmol/L (22-32); Chloride 105 mmol/L (98-107); Estimated Glomerular Filt Rate > 60 mL/min (>60); Globulin 2.9 g/dL (1.7-4.1); Glucose 96 mg/dL (80-110); HEMOLYSIS < 15 (0-50); Magnesium 1.9 mg/dL (1.6-2.3); Potassium 4.5 mmol/L (3.4-5.1); Sodium 139 mmol/L (137-145); Total Protein 7.1 g/dL (6.3-8.2)
[2023-11-26 15:46] LABS: Thyroid Stimulating Hormone 1.24 uIU/mL (0.47-4.68)
[2023-11-29 07:36] LABS: Cholesterol, Total 154 mg/dL (100-199); HDL-Cholesterol 95 mg/dL (>39); HDL-Particle (Total) 35.2 umol/L (>=30.5); Historical Reading Comment: (.); LDL Particle 527 nmol/L (<1000); LDL Size 21.6 nm (>20.5); LDL-Cholsterol 47 mg/dL (0-99); LP-IR Score 33 (<=45); Small LDL- Particle <90 nmol/L (<=527); Triglycerides 60 mg/dL (0-149)
== END ==
LOC: LAB 11:30
PROVIDERS: Family Provider Internal Medicine; PCP Internal Medicine; Referring Provider Specialist; Visit Provider Specialist
DX: E78.2 Mixed hyperlipidemia (principal); I48.11 Longstanding persistent atrial fibrillation; Z79.01 Long term (current) use of anticoagulants
CPT/HCPCS: 36415; 80053; 80061; 83704; 83735; 84443; 85025

== ENCOUNTER 2023-12-08 16:11 | Emergency (ER) | payer MEDICARE, OTHER, SELFPAY ==
[2022-05-03 08:59] VITALS: BMI 43.9
[2023-12-08 16:14] VITALS: BP 158/92; PULSE 80; RESP 20; TEMP 36.9; O2SAT 94; BMI 46.7
--- NOTE | 2023-12-08 18:21 | ED_ITS ---
HPI - Abdominal Pain <Leo Bergeron PA-C - Last Filed: 12/08/23 18:35> General Chief Complaint: Abdominal Pain Stated Complaint: pain in left lower abd; hx of hernia Time Seen by Provider: 12/08/23 17:43 Source: patient Mode of arrival: Ambulatory History of Present Illness HPI narrative: This is a 78-year-old female presents to the emergency department due to a singular episode of left lower quadrant abdominal/hip pain yesterday while at her pulmonary rehab appointment. She states that she has a history of right lower quadrant abdominal pain that was in fact it was strangulated hernia. This was a couple of years ago. She states that at that time she also had a left hernia repaired. She denies any nausea, vomiting, fevers, or any other concerning signs or symptoms. Pain is occasionally felt with movement although she was unable to reproduce the pain. Related Data Home Medications Medication Instructions Recorded Confirmed colchicine 0.6 mg capsule See Rx Instructions .Route 05/01/20 12/06/23 .COMPLEX PRN Gout potassium chloride 20 mEq 20 meq PO DAILY 01/06/22 12/06/23 tablet,extended release Disabled Parking Permit 1 ea Not Applicable ONCE 05/03/22 12/06/23 nystatin 100,000 unit/gram topical 1 applic topical BID PRN 08/18/22 12/06/23 powder torsemide 20 mg tablet 60 mg PO DAILY PRN weight gain 08/18/22 12/06/23 apixaban 5 mg tablet (Eliquis) 5 mg PO BID 01/17/23 12/06/23 rosuvastatin 5 mg tablet 5 mg PO DAILY 05/12/23 12/06/23 fluticasone fur. 200 mcg-umeclid 1 inh inhalation DAILY 12/06/23 12/06/23 62.5 mcg-vilant 25 mcg inhalat.powder (Trelegy Ellipta) metoprolol succinate 100 mg 50 mg PO DAILY 12/06/23 12/06/23 tablet,extended release 24 hr trolamine salicylate 10 % topical 1 applic topical DAILY PRN 12/06/23 12/06/23 cream xylitol [XyliMelts] 1 tab mucous membrane DAILY PRN 12/06/23 12/06/23 Previous Rx's Medication Instructions Recorded acetaminophen 325 mg capsule 650 mg (2 x 325 mg) PO QID PRN 12/23/20 (Tylenol) pain #60 caps clobetasol 0.05 % topical ointment 1 applic topical BID PRN Skin 01/06/22 Irritation #15 grams Parking Permit... #1 ea 05/03/22 Synthroid 125 mcg tablet 250 mcg (2 x 125 mcg) PO DAILY 11/16/22 (levothyroxine) #180 tabs allopurinol 300 mg tablet 300 mg PO DAILY #90 tabs 06/27/23 Synthroid 200 mcg tablet 200 mcg PO DAILY #90 tabs 08/05/23 (levothyroxine) Allergies Allergy/AdvReac Type Severity Reaction Status Date / Time amoxicillin [AMOXICILLIN] Allergy Unknown Verified 12/06/23 09:05 benzocaine [BENZOCAINE] Allergy Unknown Verified 12/06/23 09:05 celecoxib [From Celebrex] Allergy Unknown Verified 12/06/23 09:05 cephalexin [CEPHALEXIN] Allergy Unknown Verified 12/06/23 09:05 fluconazole Allergy Unknown Verified 12/06/23 09:05 metronidazole [METRONIDAZOLE] Allergy Unknown Verified 12/06/23 09:05 moxifloxacin Allergy Unknown Verified 12/06/23 09:05 penicillin V Allergy Unknown Verified 12/06/23 09:05 sodium chloride Allergy Unknown Verified 12/06/23 09:05 oxycodone Allergy Verified 12/06/23 09:05 Review of Systems <Leo Bergeron PA-C - Last Filed: 12/08/23 18:35> Review of Systems Narrative: GENERAL: Denies chills, fatigue, malaise, fever, sweats. HEENT: Denies sinus pain, ear pain, sore throat, difficulty swallowing, dizziness. RESPIRATORY: Denies dyspnea, cough, wheezing, hemoptysis, sputum. CARDIOVASCULAR: Denies chest pain, palpitations, orthopnea, edema, GASTROINTESTINAL: Denies nausea, vomiting, abdominal pain, diarrhea, constipation, melena. : Denies dysuria, frequency, incontinence, hematuria, urinary retention. MUSCULOSKELETAL: Occasional left hip pain with movement, denies weakness, joint pain, or bony pain SKIN: Denies rash, skin lesions, or other NEUROLOGIC: Denies weakness, headache, numbness, change in speech, confusion, seizures, incoordination. PSYCHIATRIC: No concerning psychosocial issues. 12 point review of systems is negative except for those stated above Patient History <Leo Bergeron PA-C - Last Filed: 12/08/23 18:35> Medical History (Updated 12/08/23 @ 18:23 by Leo Bergeron PA-C) COPD (chronic obstructive pulmonary disease) De Quervain's tenosynovitis, right Bilateral carpal tunnel syndrome Paroxysmal atrial fibrillation Venous (peripheral) insufficiency Gait instability Viral wart on finger Lipoma of upper arm Chronic respiratory failure with hypoxia Chronic back pain Chronic anticoagulation Severe obesity Pulmonary hypertension Acquired hypothyroidism Mixed hyperlipidemia Chronic diastolic (congestive) heart failure Obstructive sleep apnea Essential hypertension Gout Left bundle branch block Ataxia Obese Hypertension Hypothyroidism First degree AV block Pacemaker Third degree heart block Afib Surgical History H/O knee surgery Status cardiac pacemaker H/O cardiac radiofrequency ablation Social History household members: spouse Smoking Status: Former smoker alcohol intake: current Smoking Status: Former smoker tobacco type: cigarettes alcohol intake frequency: 3 or more drinks per day Alcohol type: wine Substance Use Type: does not use Exam <Leo Bergeron PA-C - Last Filed: 12/08/23 18:35> Narrative Exam Narrative: GENERAL: Well-developed patient, in mild distress. HEAD: Atraumatic. Normocephalic. EYES: Pupils equal round and reactive. Extraocular motions intact. No scleral icterus. No injection or drainage. ENT: Nose without bleeding, purulent drainage. Throat without erythema, tonsillar hypertrophy or exudate. Airway patent. NECK: Trachea midline. Non tender EXTREMITIES: No edema or joint tenderness. NEURO: AOx3. SKIN: No rash or erythema of visible areas Abdomen: No tenderness to palpation or masses felt to the left lower quadrant or inguinal area. No tenderness to palpation to the left hip flexor area either Initial Vital Signs Initial Vital Signs: Vital Signs Temperature 98.4 F 12/08/23 16:14 Pulse Rate 80 12/08/23 16:14 Respiratory Rate 20 12/08/23 16:14 Blood Pressure 158/92 H 12/08/23 16:14 Pulse Oximetry 94 12/08/23 16:14 Oxygen Delivery Method Room Air 12/08/23 16:14 <Lakeshia Valdez DO - Last Filed: 12/09/23 16:16> Initial Vital Signs Initial Vital Signs: Vital Signs Temperature 98.4 F 12/08/23 16:14 Pulse Rate 80 12/08/23 16:14 Respiratory Rate 20 12/08/23 16:14 Blood Pressure 158/92 H 12/08/23 16:14 Pulse Oximetry 94 12/08/23 16:14 Oxygen Delivery Method Room Air 12/08/23 16:14 Course <Leo Bergeron PA-C - Last Filed: 12/08/23 18:35> Vital Signs Vital signs: Vital Signs - 8 hr 12/08/23 16:14 Temperature 98.4 F Pulse Rate 80 Respiratory Rate 20 Blood Pressure 158/92 H Pulse Oximetry 94 Oxygen Delivery Method Room Air <Lakeshia Valdez DO - Last Filed: 12/09/23 16:16> Vital Signs Vital signs: Vital Signs - 8 hr 12/08/23 16:14 Temperature 98.4 F Pulse Rate 80 Respiratory Rate 20 Blood Pressure 158/92 H Pulse Oximetry 94 Oxygen Delivery Method Room Air MDM - Abdominal Pain <Leo Bergeron PA-C - Last Filed: 12/08/23 18:35> MDM Narrative Medical decision making narrative: ED course: This is a 78-year-old female with a history of bilateral inguinal hernia repairs presents emergency department due to left lower quadrant/hip flexor pain. She states the pain is worse with movement. On exam I was unable to palpate any left lower quadrant tenderness in the abdominal or inguinal area and no masses were felt. Patient is unsure if this is possible muscular strain stated which maybe as she does report pain with movement. Shared decision- making he was utilized and we would lactate to continue with watchful waiting. If the pain is to return if she was able to palpate any pain or abdominal inguinal areas she will return for imaging. CC: Left hip flexor pain Complicating co-morbidities: As below Data collected from: Previous notes Medical records reviewed: Patient was seen 4 years ago due to incarcerated hernia. History of third-degree heart block with pacemaker, AFib, cardiac ablation, hypertension, hypothyroidism, left quadrant diverticulitis. Was seen for right lower quadrant pain CT abdomen and pelvis was ordered which showed an incarcerated right hernia admitted to medical service with Dr. Alonzo, consulting. Eventually went to OR with Dr. Castañeda Differential considered, but not limited to: Left inguinal hernia, hip flexor strain Exam documented above, pertinent findings include: No abdominal tenderness or masses noted on exam Lab Test results independently reviewed as above. Pertinent findings: A none obtained Imaging studies independently reviewed: None obtained Scores Used: None MIPS Elements: None Consultations: None Treatments: None Re-evaluations: None Discussion: Discussed plan with the patient was comfortable with the plan Diagnosis: Hip flexor strain Disposition: see below, along with detailed discharge instructions that have been reviewed with patient as well as indications for ED re-evaluation and additional outpatient follow up Discharge Plan Departure Patient Disposition: Home Clinical Impression: Inguinal pain Activity Restrictions/Additional Instructions: Thank you for coming to the [facility] Emergency Department today. As we discussed please continue to monitor the area. If you begin to develop any began develop any nausea, vomiting, fevers, worsening pain, or any other symptoms you are welcome to return to the emergency department. As of right now the pain you are experiencing sounds somewhat more like a muscular strain in your hip flexor area. Please continue to palpate the area. If he noticed any masses or bulges in the inguinal or abdominal area please come back as well for further evaluation. You may use ibuprofen, Tylenol, and ice and warm compresses to help with the possible muscular pain as well. I hope you feel better soon. Please follow up with your primary care provider within a week if your symptoms continue. If you do not have a primary care provider please contact the [facility] Resource line at [phone]. They will ask some questions about your medical history and help you get set up with a provider in the community. Prescriptions: No Action levothyroxine [Synthroid] 125 mcg tablet 250 mcg PO DAILY Qty: 180 1RF Rx Instructions: BRAND NAME SYNTHROID ONLY - NO SUBSTITUTION allopurinol 300 mg tablet 300 mg PO DAILY Qty: 90 3RF levothyroxine [Synthroid] 200 mcg tablet 200 mcg PO DAILY Qty: 90 1RF Rx Instructions: No substituion, brand name only Disabled Parking Permit 1 ea Not Applicable ONCE (DME) Parking Permit... See Rx Instructions .Route .MEDSUPPLY Qty: 1 0RF Rx Instructions: As directed rosuvastatin 5 mg tablet 5 mg PO DAILY Trelegy Ellipta 200-62.5-25 mcg blister with device 1 inh inhalation DAILY trolamine salicylate 10 % cream 1 applic topical DAILY PRN xylitol [XyliMelts] 1 tab mucous membrane DAILY PRN potassium chloride 20 mEq tablet extended release 20 meq PO DAILY clobetasol 0.05 % ointment 1 applic TOPICAL BID PRN (Reason: Skin Irritation) Qty: 15 5RF metoprolol succinate 100 mg tablet extended release 24 hr 50 mg PO DAILY nystatin 100,000 unit/gram powder 1 applic topical BID PRN Rx Instructions: Apply to left groin Eliquis 5 mg tablet 5 mg PO BID colchicine 0.6 mg Capsule See Rx Instructions .ROUTE .COMPLEX PRN (Reason: Gout) Rx Instructions: Take 2 tabs orally at onset of gout flare and then 1 tab 1 hour later torsemide 20 mg tablet 60 mg PO DAILY PRN (Reason: weight gain) acetaminophen [Tylenol] 325 mg capsule 650 mg PO QID PRN (Reason: pain) Qty: 60 0RF Referrals: Esa Spring MD [Primary Care Provider] - Stand Alone Forms: Patient Portal/API ED Sign-out <Lakeshia Valdez DO - Last Filed: 12/09/23 16:16> Cosign ED Attending Verena Attestation: I was immediately available in the department for consultation.
[2023-12-08 18:32] VITALS: BP 137/71; PULSE 80; RESP 12; TEMP 36.6; O2SAT 96
== END 2023-12-08 18:30 | disposition home or self-care (01) ==
PROVIDERS: Emergency Provider Physician Assistant Medical; Family Provider Internal Medicine; PCP Internal Medicine
DX: R10.32 Left lower quadrant pain (principal)
CPT/HCPCS: 99281; 99282

== ENCOUNTER 2024-01-23 14:15 | Outpatient (RCR) | payer MEDICARE, OTHER, SELFPAY ==
[2022-05-03 08:59] VITALS: BMI 43.9
== END 2024-01-23 16:15 | disposition home or self-care (01) ==
LOC: PUL 14:15
PROVIDERS: Family Provider Internal Medicine; PCP Internal Medicine; Referring Provider Internal Medicine Critical Care Medicine; Visit Provider Internal Medicine Critical Care Medicine
DX: J44.9 Chronic obstructive pulmonary disease, unspecified (principal); J44.89 Other specified chronic obstructive pulmonary disease
CPT/HCPCS: 94625; 94626

== ENCOUNTER → 2024-01-23 17:04 | Outpatient (CLI) | payer MEDICARE, OTHER, SELFPAY ==
[2022-05-03 08:59] VITALS: BMI 43.9
[2024-01-23 18:09] LABS: Hematocrit 37.6 % (36-46); Hemoglobin 12.5 g/dL (12.0-16.0); Mean Corpuscular HGB Conc 33.3 % (30-36); Mean Corpuscular Hemoglobin 35.1 PG (26-34); Mean Corpuscular Volume 105.3 fL (80-100); Platelet Count 181 X10^3/uL (150-400); Red Blood Cell Count 3.57 X10^6/uL (4.0-5.2); Red Cell Distribution Width 14.6 % (11.6-14.8); White Blood Cell Count 4.8 X10^3/uL (4.5-11.0)
[2024-01-23 18:36] LABS: BUN Creatinine Ratio 21.1 (6-22); Blood Urea Nitrogen 19 mg/dL (7-17); Calcium 8.9 mg/dL (8.4-10.2); Carbon Dioxide 34 mmol/L (22-32); Chloride 102 mmol/L (98-107); Estimated Glomerular Filt Rate > 60 mL/min (>60); Glucose 108 mg/dL (80-110); HEMOLYSIS < 15 (0-50); Potassium 3.6 mmol/L (3.4-5.1); Sodium 138 mmol/L (137-145)
== END ==
PROVIDERS: Family Provider Internal Medicine; PCP Internal Medicine; Referring Provider Internal Medicine; Visit Provider Internal Medicine
DX: R25.2 Cramp and spasm (principal); I48.0 Paroxysmal atrial fibrillation; E83.42 Hypomagnesemia
CPT/HCPCS: 36415; 80048; 83735; 85027

== ENCOUNTER → 2024-04-02 12:30 | Outpatient (CLI) | payer MEDICARE, OTHER, SELFPAY ==
[2022-05-03 08:59] VITALS: BMI 43.9
[2024-04-02 14:46] LABS: Alanine Aminotransferase 26 IU/L (<35); Albumin 4.1 g/dL (3.5-5.0); Albumin Globulin Ratio 1.2 (1.0-2.8); Alkaline Phosphatase 99 U/L (38-126); Aspartate Aminotransferase 35 IU/L (14-36); BUN Creatinine Ratio 21.5 (6-22); Bilirubin Total 0.9 mg/dL (0.2-1.3); Blood Urea Nitrogen 17 mg/dL (7-17); Calcium 9.1 mg/dL (8.4-10.2); Carbon Dioxide 33 mmol/L (22-32); Chloride 100 mmol/L (98-107); Cholesterol 168 mg/dL (140-199); Estimated Glomerular Filt Rate > 60 mL/min (>60); Globulin 3.3 g/dL (1.7-4.1); Glucose 99 mg/dL (80-110); HDL Cholesterol 108 mg/dL (40-60); HEMOLYSIS < 15 (0-50); LDL Cholesterol Calculated 45 mg/dL (<100); Magnesium 2.1 mg/dL (1.6-2.3); Potassium 3.7 mmol/L (3.4-5.1); Sodium 138 mmol/L (137-145); Total Protein 7.4 g/dL (6.3-8.2); Triglycerides 77 mg/dL (35-150)
[2024-04-02 14:55] LABS: NT-proBNP (BNP-Adult 18+) 2050 pg/mL (<450)
== END ==
PROVIDERS: Family Provider Internal Medicine; PCP Internal Medicine; Referring Provider Specialist; Visit Provider Specialist
DX: R06.02 Shortness of breath (principal); I10 Essential (primary) hypertension; E78.2 Mixed hyperlipidemia
CPT/HCPCS: 36415; 80053; 80061; 83735; 83880

== ENCOUNTER → 2024-08-16 10:45 | Outpatient (CLI) | payer MEDICARE, OTHER, SELFPAY ==
[2024-06-18 15:14] VITALS: BMI 43.9
[2024-08-16 11:13] LABS: Hematocrit 40.7 % (36-46); Hemoglobin 13.5 g/dL (12.0-16.0); Mean Corpuscular HGB Conc 33.1 % (30-36); Mean Corpuscular Hemoglobin 35.9 PG (26-34); Mean Corpuscular Volume 108.3 fL (80-100); Platelet Count 181 X10^3/uL (150-400); Red Blood Cell Count 3.76 X10^6/uL (4.0-5.2); Red Cell Distribution Width 16.2 % (11.6-14.8); White Blood Cell Count 4.1 X10^3/uL (4.5-11.0)
[2024-08-16 11:39] LABS: Alanine Aminotransferase 29 IU/L (<35); Albumin Globulin Ratio 1.3 (1.0-2.8); Alkaline Phosphatase 113 U/L (38-126); Aspartate Aminotransferase 42 IU/L (14-36); Bilirubin Total 0.9 mg/dL (0.2-1.3); Blood Urea Nitrogen 16 mg/dL (7-17); Calcium 8.8 mg/dL (8.4-10.2); Carbon Dioxide 33 mmol/L (22-32); Chloride 100 mmol/L (98-107); Estimated Glomerular Filt Rate > 60 mL/min (>60); Globulin 3.1 g/dL (1.7-4.1); Glucose 94 mg/dL (80-110); HEMOLYSIS < 15 (0-50); Magnesium 2.1 mg/dL (1.6-2.3); Potassium 4.7 mmol/L (3.4-5.1); Sodium 137 mmol/L (137-145); Total Protein 7.1 g/dL (6.3-8.2)
[2024-08-16 11:46] LABS: NT-proBNP (BNP-Adult 18+) 958 pg/mL (<450)
[2024-08-16 12:07] LABS: Thyroid Stimulating Hormone 4.14 uIU/mL (0.47-4.68)
== END ==
LOC: LAB 10:48
PROVIDERS: Family Provider Internal Medicine; PCP Internal Medicine; Referring Provider Specialist; Visit Provider Specialist
DX: I11.0 Hypertensive heart disease with heart failure (principal); I50.32 Chronic diastolic (congestive) heart failure; Z79.01 Long term (current) use of anticoagulants
CPT/HCPCS: 36415; 80053; 83735; 83880; 84443; 85027

== ENCOUNTER 2024-10-02 14:30 | Emergency (ER) | payer MEDICARE, OTHER, SELFPAY ==
[2024-06-18 15:14] VITALS: BMI 43.9
[2024-10-02 15:08] VITALS: BP 143/78; PULSE 20; RESP 143; TEMP 36.3; O2SAT 99; BMI 46.7
--- NOTE | 2024-10-02 15:12 | EKG_ITS ---
[address] [address] Test Date: 2024-10-02 Pat Name: Keeley Diaz Department: [facility] Room: Gender: Female Storage Consultant: MALLORY : 1945 Requested By: Order Number: [id number] Reading MD: Will Geronimo Measurements Intervals [place] Rate: 80 P: OK: QRS: -46 QRSD: 172 T: 2 QT: 474 QTc: 546 Interpretive Statements Ventricular-paced rhythm Electronically Signed On 10-02-2024 17:31:42 PST by Will Geronimo
--- NOTE | 2024-10-02 15:12 | DI.RAD.S_ITS ---
PROCEDURE: XR CHEST 1V INDICATIONS: Shortness of breath TECHNIQUE: One view of the chest was acquired. COMPARISON: [facility], CR, XR CHEST 2V, 11/10/2020, 16:16. FINDINGS: Surgical changes and devices: Pacemaker. Lungs and pleura: Increased interstitial prominence. Mediastinum: Mediastinal contours appear normal. Heart size is enlarged. Bones and chest wall: No suspicious bony lesions. Overlying soft tissues appear unremarkable. IMPRESSION: Cardiomegaly with increased interstitial prominence suggestive of edema. Dictated by: Ina Dyer M.D. on 10/02/2024 at 15:40 Approved by: Ina Dyer M.D. on 10/02/2024 at 15:40
[2024-10-02 15:45] LABS: Lactate (Lactic Acid) 0.8 mmol/L (0.7-2.1)
[2024-10-02 15:46] LABS: Alanine Aminotransferase 30 IU/L (<35); Albumin 4.4 g/dL (3.5-5.0); Albumin Globulin Ratio 1.3 (1.0-2.8); Alkaline Phosphatase 105 U/L (38-126); Aspartate Aminotransferase 41 IU/L (14-36); BUN Creatinine Ratio 23.9 (6-22); Bilirubin Total 0.8 mg/dL (0.2-1.3); Blood Urea Nitrogen 21 mg/dL (7-17); Calcium 8.9 mg/dL (8.4-10.2); Carbon Dioxide 33 mmol/L (22-32); Chloride 98 mmol/L (98-107); Estimated Glomerular Filt Rate > 60 mL/min (>60); Globulin 3.5 g/dL (1.7-4.1); Glucose 100 mg/dL (80-110); HEMOLYSIS < 15 (0-50); Potassium 3.6 mmol/L (3.4-5.1); Sodium 139 mmol/L (137-145); Total Protein 7.9 g/dL (6.3-8.2)
[2024-10-02 15:49] LABS: Add Manual Diff / Slide Review NO; Basophils Absolute Auto 0 /uL (0-100); Eosinophils Absolute Auto 200 /uL (0-450); Hematocrit 41.8 % (36-46); Hemoglobin 13.6 g/dL (12.0-16.0); INR 1.2 (0.9-1.3); Lymphocytes Absolute Auto 1100 /uL (1100-4500); Lymphocytes Percent Auto 23.6 % (25-40); Mean Corpuscular HGB Conc 32.5 % (30-36); Mean Corpuscular Hemoglobin 35.7 PG (26-34); Mean Corpuscular Volume 109.8 fL (80-100); Monocytes Absolute Auto 500 /uL (0-900); Monocytes Percent Auto 11.3 % (3-14); Neutrophils Absolute Auto 2700 /uL (1500-7000); Neutrophils Percent Auto 60.1 % (50-75); Platelet Count 166 X10^3/uL (150-400); Red Cell Distribution Width 15.4 % (11.6-14.8); White Blood Cell Count 4.6 X10^3/uL (4.5-11.0)
[2024-10-02 15:58] LABS: NT-proBNP (BNP-Adult 18+) 1570 pg/mL (<450); Troponin I < 0.012 ng/mL (0.01-0.034)
--- NOTE | 2024-10-02 16:31 | DI.US.S_ITS ---
PROCEDURE: US PERIPH VENOUS LOW EXTREM BI INDICATIONS: SWELLING TECHNIQUE: Real-time imaging, as well as color and pulse Doppler interrogation, were performed of the deep veins of both legs from the inguinal ligament to the popliteal fossa, with documentation of the visualized calf veins. COMPARISON: None. FINDINGS: Right: The common femoral, femoral, popliteal, and the visualized calf veins are normally compressible, and free of intraluminal thrombus. Color and pulse Doppler demonstrate normal phasic intravascular flow. There is normal augmentation response to distal compression maneuver. Of note, the distal posterior tibial vein and peroneal vein were not well visualized secondary to soft tissue edema. Left: The common femoral, femoral, popliteal, and the visualized calf veins are normally compressible, and free of intraluminal thrombus. Color and pulse Doppler demonstrate normal phasic intravascular flow. There is normal augmentation response to distal compression maneuver. Of note, the distal posterior tibial vein and peroneal vein were not well visualized secondary to soft tissue edema. IMPRESSION: No findings of deep venous thrombosis in either lower extremity. Dictated by: Galen Scales M.D. on 10/02/2024 at 17:17 Approved by: Galen Scales M.D. on 10/02/2024 at 17:17
--- NOTE | 2024-10-02 19:35 | PC.NURSE ---
PT refusing VS at this time. Dr Bass aware.
--- NOTE | 2024-10-02 19:40 | PC.NURSE ---
Pt is upset that she has been waiting so long. Discussed plan of care. Pt refusing to have vital signs taken. Wants to leave ER.
[2024-10-02 19:53] VITALS: BP 176/85; PULSE 78; RESP 19; O2SAT 97
--- NOTE | 2024-10-02 19:53 | PC.NURSE ---
Pt has 2+ edema to bilateral LE. Discussed plan of care, understands. VSS. Pt denies SOB or chest pain.
--- NOTE | 2024-10-02 20:07 | ED_ITS ---
HPI - General Adult General Chief complaint: Dizziness Stated complaint: swelling in both feet, Dizzy Time Seen by Provider: 10/02/24 20:06 History of Present Illness HPI narrative: Patient is a 79-year-old female history of hypertension paroxysmal AFib with pacemaker on Eliquis, CHF, hypertension, pulmonary hypertension hyperlipidemia hypothyroidism presents to the ED from home for evaluation of bruising to her left toes. She states that she has baseline swelling and baseline intermittent dizziness that has been ongoing and persistent for the past ?40 years. Related Data Home Medications Medication Instructions Recorded Confirmed colchicine 0.6 mg capsule See Rx Instructions .Route 05/01/20 07/04/24 .COMPLEX PRN Gout potassium chloride 20 mEq 20 meq PO DAILY 01/06/22 07/04/24 tablet,extended release Disabled Parking Permit 1 ea Not Applicable ONCE 05/03/22 07/04/24 nystatin 100,000 unit/gram topical 1 applic topical BID PRN 08/18/22 07/04/24 powder torsemide 20 mg tablet 60 mg PO DAILY PRN weight gain 08/18/22 07/04/24 apixaban 5 mg tablet (Eliquis) 5 mg PO BID 01/17/23 07/04/24 fluticasone fur. 200 mcg-umeclid 1 inh inhalation DAILY 12/06/23 07/04/24 62.5 mcg-vilant 25 mcg inhalat.powder (Trelegy Ellipta) metoprolol succinate 100 mg 50 mg PO DAILY 12/06/23 07/04/24 tablet,extended release 24 hr trolamine salicylate 10 % topical 1 applic topical DAILY PRN 12/06/23 07/04/24 cream xylitol [XyliMelts] 1 tab mucous membrane DAILY PRN 12/06/23 07/04/24 Previous Rx's Medication Instructions Recorded acetaminophen 325 mg capsule 650 mg (2 x 325 mg) PO QID PRN 12/23/20 (Tylenol) pain #60 caps clobetasol 0.05 % topical ointment 1 applic topical BID PRN Skin 01/06/22 Irritation #15 grams Parking Permit... #1 ea 05/03/22 clobetasol 0.05 % topical ointment 1 applic topical BID PRN rash 2 05/02/24 weeks #15 grams allopurinol 300 mg tablet 300 mg PO DAILY #90 tabs 06/26/24 pravastatin 10 mg tablet 10 mg PO BEDTIME #90 tabs 07/04/24 Synthroid 200 mcg tablet 200 mcg PO DAILY #90 tabs 08/27/24 (levothyroxine) Allergies Allergy/AdvReac Type Severity Reaction Status Date / Time amoxicillin [AMOXICILLIN] Allergy Unknown Verified 07/04/24 11:40 benzocaine [BENZOCAINE] Allergy Unknown Verified 07/04/24 11:40 celecoxib [From Celebrex] Allergy Unknown Verified 07/04/24 11:40 cephalexin [CEPHALEXIN] Allergy Unknown Verified 07/04/24 11:40 fluconazole Allergy Unknown Verified 07/04/24 11:40 metronidazole [METRONIDAZOLE] Allergy Unknown Verified 07/04/24 11:40 moxifloxacin Allergy Unknown Verified 07/04/24 11:40 penicillin V Allergy Unknown Verified 07/04/24 11:40 sodium chloride Allergy Unknown Verified 07/04/24 11:40 oxycodone Allergy Verified 07/04/24 11:40 rosuvastatin AdvReac Intermediate cramps Verified 07/04/24 11:58 Patient History Medical History Lichen sclerosus Urinary incontinence Scoliosis Hypomagnesemia COPD (chronic obstructive pulmonary disease) De Quervain's tenosynovitis, right Bilateral carpal tunnel syndrome Paroxysmal atrial fibrillation Venous (peripheral) insufficiency Gait instability Viral wart on finger Lipoma of upper arm Chronic respiratory failure with hypoxia Chronic back pain Chronic anticoagulation Severe obesity Pulmonary hypertension Acquired hypothyroidism Mixed hyperlipidemia Chronic diastolic (congestive) heart failure Obstructive sleep apnea Essential hypertension Gout Left bundle branch block Ataxia Obese Hypertension Hypothyroidism First degree AV block Pacemaker Third degree heart block Afib Surgical History H/O knee surgery Status cardiac pacemaker H/O cardiac radiofrequency ablation Social History household members: spouse Smoking Status: Former smoker alcohol intake: current Smoking Status: Former smoker tobacco type: cigarettes alcohol intake frequency: 3 or more drinks per day Alcohol type: wine Exam Initial Vital Signs Initial Vital Signs: Vital Signs Temperature 97.4 F L 10/02/24 15:08 Pulse Rate 20 L 10/02/24 15:08 Respiratory Rate 143 H 10/02/24 15:08 Blood Pressure 143/78 H 10/02/24 15:08 Pulse Oximetry 99 10/02/24 15:08 Oxygen Delivery Method Room Air 10/02/24 15:08 Course Orders Ordered: ED Orders 10/02/24 15:12 XR chest 1V Stat EKG-12 Lead Stat Measure peak expiratory flow ONCE RT Consult Eval and Treat NOW 10/02/24 15:24 Complete Blood Count AUTO DIFF Stat Comprehensive Metabolic Panel Stat Lactate (Lactic Acid) Stat NT-proBNP (BNP-Adult 18+) Stat Prothrombin Time INR Stat Troponin I Stat 10/02/24 16:31 perip venous low extrem bi Stat Vital Signs Vital signs: Vital Signs - 8 hr 10/02/24 15:08 10/02/24 19:53 Temperature 97.4 F L Pulse Rate 20 L 78 Respiratory Rate 143 H 19 Blood Pressure 143/78 H 176/85 H Pulse Oximetry 99 97 Oxygen Delivery Method Room Air Room Air Medical Decision Making Lab Data 10/02/24 15:24 10/02/24 15:24 Labs: Lab Results 10/02/24 Range/Units 15:24 WBC 4.6 (4.5-11.0) X10^3/uL RBC 3.80 L (4.0-5.2) X10^6/uL Hgb 13.6 (12.0-16.0) g/dL Hct 41.8 (36-46) % MCV 109.8 H (80-100) fL MCH 35.7 H (26-34) PG MCHC 32.5 (30-36) % RDW 15.4 H (11.6-14.8) % Plt Count 166 (150-400) X10^3/uL Neut % (Auto) 60.1 (50-75) % Lymph % (Auto) 23.6 L (25-40) % Millard % (Auto) 11.3 (3-14) % Eos % (Auto) 4.0 (2-4) % Baso % (Auto) 1.0 (0-2) % Neut # (Auto) 2700 (7432-6140) /uL Lymph # (Auto) 1100 (5216-4719) /uL Millard # (Auto) 500 (0-900) /uL Eos # (Auto) 200 (0-450) /uL Baso # (Auto) 0 (0-100) /uL PT 14.0 H (9.4-12.5) SECONDS INR 1.2 (0.9-1.3) Sodium 139 (137-145) mmol/L Potassium 3.6 (3.4-5.1) mmol/L Chloride 98 (98-107) mmol/L Carbon Dioxide 33 H (22-32) mmol/L BUN 21 H (7-17) mg/dL Creatinine 0.88 (0.52-1.04) mg/dL Estimated GFR > 60 (>60) mL/min BUN/Creatinine Ratio 23.9 H (6-22) Glucose 100 (80-110) mg/dL Lactate 0.8 (0.7-2.1) mmol/L Calcium 8.9 (8.4-10.2) mg/dL Total Bilirubin 0.8 (0.2-1.3) mg/dL AST 41 H (14-36) IU/L ALT 30 (<35) IU/L Alkaline Phosphatase 105 (38-126) U/L Troponin I < 0.012 (0.01-0.034) ng/mL NT-Pro-B Natriuret Pep 1570 H (<450) pg/mL Total Protein 7.9 (6.3-8.2) g/dL Albumin 4.4 (3.5-5.0) g/dL Globulin 3.5 (1.7-4.1) g/dL Albumin/Globulin Ratio 1.3 (1.0-2.8) Discharge Plan Departure Patient Disposition: Home Clinical Impression: Bilateral lower extremity edema Instructions: DI for Peripheral Edema -- Bilateral Activity Restrictions/Additional Instructions: Please follow up with your primary care doctor and your healthcare economics consultant Please read the discharge instructions sheet carefully and bring all papers to all doctor follow-up visits, as it may contain information that your doctor may want to see. Disease processes change and evolve, if your symptoms worsen or if you develop any new symptoms that are concerning to you please return for evaluation. Your evaluation today does not show any evidence of any life- threatening/serious illnesses requiring admission to the hospital or surgery. Please follow-up with your doctor for re-evaluation in approximately 1 day. Seek immediate medical attention for any worrisome symptoms. *If you do not have a primary care provider please contact the [facility] Resource line at [phone]. They will ask some questions about your medical history and help get you set up with a doctor in the community. Prescriptions: No Action allopurinol 300 mg tablet 300 mg PO DAILY Qty: 90 3RF levothyroxine [Synthroid] 200 mcg tablet 200 mcg PO DAILY Qty: 90 1RF Rx Instructions: No substituion, brand name only Disabled Parking Permit 1 ea Not Applicable ONCE (DME) Parking Permit... See Rx Instructions .Route .MEDSUPPLY Qty: 1 0RF Rx Instructions: As directed Trelegy Ellipta 200-62.5-25 mcg blister with device 1 inh inhalation DAILY trolamine salicylate 10 % cream 1 applic topical DAILY PRN xylitol [XyliMelts] 1 tab mucous membrane DAILY PRN pravastatin 10 mg tablet 10 mg PO BEDTIME Qty: 90 3RF potassium chloride 20 mEq tablet extended release 20 meq PO DAILY clobetasol 0.05 % ointment 1 applic TOPICAL BID PRN (Reason: Skin Irritation) Qty: 15 5RF metoprolol succinate 100 mg tablet extended release 24 hr 50 mg PO DAILY nystatin 100,000 unit/gram powder 1 applic topical BID PRN Rx Instructions: Apply to left groin Eliquis 5 mg tablet 5 mg PO BID clobetasol 0.05 % ointment 1 applic topical BID PRN (Reason: rash) 14 Days Qty: 15 2RF Rx Instructions: 1 gram twice daily colchicine 0.6 mg Capsule See Rx Instructions .ROUTE .COMPLEX PRN (Reason: Gout) Rx Instructions: Take 2 tabs orally at onset of gout flare and then 1 tab 1 hour later torsemide 20 mg tablet 60 mg PO DAILY PRN (Reason: weight gain) acetaminophen [Tylenol] 325 mg capsule 650 mg PO QID PRN (Reason: pain) Qty: 60 0RF Referrals: Esa Spring MD [Primary Care Provider] - Stand Alone Forms: Patient Portal/API/Survey
[2024-10-02 21:12] VITALS: BP 159/89; PULSE 80; RESP 18; TEMP 36.6; O2SAT 94
== END 2024-10-02 21:14 | disposition home or self-care (01) ==
PROVIDERS: Emergency Medicine; Emergency Provider Student in an Organized Health Care Education/Training Program; Family Provider Internal Medicine; PCP Internal Medicine
DX: R60.0 Localized edema (principal); R42 Dizziness and giddiness; I10 Essential (primary) hypertension; I48.0 Paroxysmal atrial fibrillation; Z79.01 Long term (current) use of anticoagulants; E03.9 Hypothyroidism, unspecified; E78.5 Hyperlipidemia, unspecified; R06.02 Shortness of breath
CPT/HCPCS: 36415; 71045; 80053; 83605; 83880; 84484; 85025; 85610; 93005; 93970; 99283; 99284

== ENCOUNTER → 2024-10-15 17:32 | Outpatient (CLI) | payer MEDICARE, OTHER, SELFPAY ==
[2024-06-18 15:14] VITALS: BMI 43.9
[2024-10-15 18:25] LABS: HEMOLYSIS < 15 (0-50)
[2024-10-15 18:30] LABS: BUN Creatinine Ratio 20.2 (6-22); Blood Urea Nitrogen 26 mg/dL (7-17); Calcium 9.3 mg/dL (8.4-10.2); Carbon Dioxide 36 mmol/L (22-32); Chloride 97 mmol/L (98-107); Estimated Glomerular Filt Rate 42 mL/min (>60); Glucose 108 mg/dL (80-110); Potassium 4.1 mmol/L (3.4-5.1); Sodium 140 mmol/L (137-145)
[2024-10-15 19:41] LABS: Vitamin B12 Reflex MMA if <400 348 pg/mL (239-931)
[2024-10-15 20:17] LABS: Free T4, Direct Thyroxine 1.15 ng/dL (0.78-2.19)
== END ==
PROVIDERS: Family Provider Internal Medicine; PCP Internal Medicine; Referring Provider Internal Medicine; Visit Provider Internal Medicine
DX: E03.9 Hypothyroidism, unspecified (principal); R60.0 Localized edema; E53.8 Deficiency of other specified B group vitamins; I50.32 Chronic diastolic (congestive) heart failure
CPT/HCPCS: 36415; 80048; 82607; 83921; 84439; 84443

== ENCOUNTER → 2024-12-07 08:39 | Outpatient (CLI) | payer MEDICARE, OTHER, SELFPAY ==
[2024-06-18 15:14] VITALS: BMI 43.9
--- NOTE | 2024-12-07 08:44 | DI.CT.S_ITS ---
PROCEDURE: CT CHEST HIGH RESOLUTION INDICATIONS: Clayton Carrasco TECHNIQUE: Noncontrast 1.0 and 5.0 mm thick contiguous axial sections from the pulmonary apex to the posterior costophrenic angles, with 7 mm thick coronal and sagittal MIP reformats. 1 mm thick dynamic expiratory images acquired through the upper, mid, and lower lungs. 1.0 mm thick axial sections acquired from the joyce to the posterior costophrenic angles in the prone end-inspiration position. For radiation dose reduction, the following was used: automated exposure control, adjustment of mA and/or kV according to patient size. COMPARISON: [facility], CR, XR CHEST 1V, 10/02/2024, 15:16. FINDINGS: Image quality: Diagnostic. The patient could not tolerate prone positioning. Lower Neck: No enlarged lymph nodes. Thyroid: No thyroid nodules which require sonographic follow up, per consensus guidelines. Axillae: No enlarged lymph nodes. Chest Wall: Pacemaking device and dual chamber leads extend in normal position from left-sided approach. Bones: Unremarkable. Lungs and Pleura: No pneumothorax or pleural effusions. Series 2 provides excellent visualization through the lung parenchyma in supine positioning, showing no evidence of multifocal alveolar edema or pneumonia. There is, however, left lower lobe alveolar consolidation that is [id number] in severity, considered most likely mild pneumonia versus retention of pulmonary secretions in that area. No evidence of pulmonary fibrosis or bronchiectasis. Heart: Heart size is mildly enlarged. Small pericardial effusion. Thoracic Vessels: The aorta and pulmonary arteries demonstrate normal size. Mediastinum and Maite: No enlarged lymph nodes. Esophagus: No wall thickening. No hiatal hernia. Upper Abdomen: Visualized upper abdomen solid organs and bowel loops appear normal. IMPRESSION: 1. Alveolar edema pattern has resolved with reference to plain film imaging 10/02/24. Chronic mild cardiomegaly. Small pericardial effusion. Cardiac pacemaking device and dual chamber leads appear in normal position. 2. No evidence of pulmonary fibrosis or bronchiectasis. Note is made of alveolar consolidation [id number] in severity within the left lower lobe, either representing pneumonia or retention of pulmonary secretions. Dictated by: Enoc Salamanca M.D. on 12/07/2024 at 14:46 Approved by: Enoc Salamanca M.D. on 12/07/2024 at 15:05
[2024-12-07 10:58] LABS: Add Manual Diff / Slide Review NO; Basophils Absolute Auto 0 /uL (0-100); Basophils Percent Auto 1.3 % (0-2); Eosinophils Absolute Auto 200 /uL (0-450); Eosinophils Percent Auto 4.6 % (2-4); Hemoglobin 12.5 g/dL (12.0-16.0); Lymphocytes Absolute Auto 900 /uL (1100-4500); Lymphocytes Percent Auto 24.7 % (25-40); Mean Corpuscular HGB Conc 33.8 % (30-36); Mean Corpuscular Hemoglobin 36.2 PG (26-34); Mean Corpuscular Volume 107.1 fL (80-100); Monocytes Absolute Auto 400 /uL (0-900); Monocytes Percent Auto 11.5 % (3-14); Neutrophils Absolute Auto 2000 /uL (1500-7000); Neutrophils Percent Auto 57.9 % (50-75); Platelet Count 172 X10^3/uL (150-400); Red Blood Cell Count 3.46 X10^6/uL (4.0-5.2); Red Cell Distribution Width 14.2 % (11.6-14.8); White Blood Cell Count 3.5 X10^3/uL (4.5-11.0)
[2024-12-07 11:20] LABS: BUN Creatinine Ratio 24.1 (6-22); Blood Urea Nitrogen 19 mg/dL (7-17); Calcium 8.8 mg/dL (8.4-10.2); Carbon Dioxide 34 mmol/L (22-32); Chloride 101 mmol/L (98-107); Estimated Glomerular Filt Rate > 60 mL/min (>60); Glucose 85 mg/dL (70-99); HEMOLYSIS < 15 (0-50); Potassium 4.3 mmol/L (3.4-5.1); Sodium 139 mmol/L (137-145)
[2024-12-07 11:27] LABS: NT-proBNP (BNP-Adult 18+) 1550 pg/mL (<450)
== END ==
PROVIDERS: Family Provider Internal Medicine; PCP Internal Medicine; Referring Provider Internal Medicine Critical Care Medicine; Visit Provider Internal Medicine Critical Care Medicine
DX: I27.20 Pulmonary hypertension, unspecified (principal); I31.39 Other pericardial effusion (noninflammatory); J98.4 Other disorders of lung; I51.7 Cardiomegaly; G47.33 Obstructive sleep apnea (adult) (pediatric); R06.02 Shortness of breath; Z95.0 Presence of cardiac pacemaker
CPT/HCPCS: 36415; 71250; 80048; 83880; 85025

== ENCOUNTER → 2024-12-14 13:40 | Outpatient (CLI) | payer MEDICARE, OTHER, SELFPAY ==
[2024-06-18 15:14] VITALS: BMI 43.9
[2024-12-14 14:26] LABS: Hematocrit 38.6 % (36-46); Hemoglobin 12.8 g/dL (12.0-16.0); Mean Corpuscular HGB Conc 33.1 % (30-36); Mean Corpuscular Hemoglobin 35.5 PG (26-34); Mean Corpuscular Volume 107.2 fL (80-100); Platelet Count 178 X10^3/uL (150-400); Red Cell Distribution Width 14.2 % (11.6-14.8); White Blood Cell Count 3.2 X10^3/uL (4.5-11.0)
[2024-12-14 15:30] LABS: Alanine Aminotransferase 25 IU/L (<35); Albumin Globulin Ratio 1.4 (1.0-2.8); Alkaline Phosphatase 101 U/L (38-126); Aspartate Aminotransferase 36 IU/L (14-36); Blood Urea Nitrogen 21 mg/dL (7-17); Carbon Dioxide 29 mmol/L (22-32); Chloride 103 mmol/L (98-107); Estimated Glomerular Filt Rate > 60 mL/min (>60); Globulin 2.9 g/dL (1.7-4.1); Glucose 91 mg/dL (70-99); HEMOLYSIS 16 (0-50); Potassium 4.1 mmol/L (3.4-5.1); Sodium 139 mmol/L (137-145); Total Protein 6.9 g/dL (6.3-8.2)
[2024-12-14 15:39] LABS: NT-proBNP (BNP-Adult 18+) 1810 pg/mL (<450)
== END ==
PROVIDERS: Family Provider Internal Medicine; PCP Internal Medicine; Referring Provider Specialist; Visit Provider Specialist
DX: E78.2 Mixed hyperlipidemia (principal); I50.32 Chronic diastolic (congestive) heart failure; I48.21 Permanent atrial fibrillation
CPT/HCPCS: 36415; 80053; 80061; 83704; 83735; 83880; 85027

== ENCOUNTER → 2025-02-06 12:56 | Outpatient (CLI) | payer MEDICARE, OTHER, SELFPAY ==
[2024-06-18 15:14] VITALS: BMI 43.9
--- NOTE | 2025-02-06 12:58 | DI.CT.S_ITS ---
PROCEDURE: CT CHEST WO CON INDICATIONS: FU left base pneumonia TECHNIQUE: Noncontrast 5 mm thick sections acquired from the pulmonary apices to the posterior costophrenic angles. 1 mm lung window, 5 mm thick coronal and sagittal and 7 mm axial MIP reformats were then acquired. For radiation dose reduction, the following was used: automated exposure control, adjustment of mA and/or kV according to patient size. COMPARISON: [facility], CT, CT CHEST HIGH RESOLUTION, 12/07/2024, 9:13. FINDINGS: Image quality: Diagnostic. Lower Neck: No enlarged lymph nodes. Thyroid: No thyroid nodules which require sonographic follow up, per consensus guidelines. Axillae: No enlarged lymph nodes. Chest Wall: Unremarkable. Bones: Unremarkable. Lungs and Pleura: No pneumothorax or pleural effusions. Near complete interval resolution of left basilar consolidation. Heart: Heart size is enlarged with [id number] pericardial effusion, measuring 1.58 cm. Thoracic Vessels: The main pulmonary artery is enlarged and recommend correlation to pulmonary artery hypertension.. Mediastinum and Maite: No enlarged lymph nodes. Esophagus: No wall thickening. Mild hiatal hernia. Upper Abdomen: Visualized upper abdomen solid organs and bowel loops appear normal. IMPRESSION: Near complete interval resolution of left lower lobe pneumonia. Cardiomegaly with effusion, stable. Dictated by: Ina Dyer M.D. on 02/06/2025 at 19:46 Approved by: Ina Dyer M.D. on 02/06/2025 at 19:47
== END ==
PROVIDERS: Family Provider Internal Medicine; PCP Internal Medicine; Referring Provider Internal Medicine Critical Care Medicine; Visit Provider Internal Medicine Critical Care Medicine
DX: J18.9 Pneumonia, unspecified organism (principal); I51.7 Cardiomegaly; I31.39 Other pericardial effusion (noninflammatory); I28.9 Disease of pulmonary vessels, unspecified; K44.9 Diaphragmatic hernia without obstruction or gangrene
CPT/HCPCS: 71250

== ENCOUNTER → 2025-04-22 10:57 | Outpatient (CLI) | payer MEDICARE, OTHER, SELFPAY ==
[2024-06-18 15:14] VITALS: BMI 43.9
[2025-04-22 12:34] LABS: Hematocrit 38.8 % (36-46); Hemoglobin 12.7 g/dL (12.0-16.0); Mean Corpuscular HGB Conc 32.8 % (30-36); Mean Corpuscular Hemoglobin 32.9 PG (26-34); Mean Corpuscular Volume 100.3 fL (80-100); Platelet Count 150 X10^3/uL (150-400)
[2025-04-22 12:56] LABS: Alanine Aminotransferase 15 IU/L (<35); Albumin 3.9 g/dL (3.5-5.0); Albumin Globulin Ratio 1.3 (1.0-2.8); Alkaline Phosphatase 107 U/L (38-126); Blood Urea Nitrogen 17 mg/dL (7-17); Calcium 8.6 mg/dL (8.4-10.2); Carbon Dioxide 32 mmol/L (22-32); Chloride 99 mmol/L (98-107); Estimated Glomerular Filt Rate > 60 mL/min (>60); Globulin 3.1 g/dL (1.7-4.1); Glucose 93 mg/dL (70-99); HEMOLYSIS < 15 (0-50); Magnesium 2.2 mg/dL (1.6-2.3); Potassium 4.7 mmol/L (3.4-5.1); Sodium 138 mmol/L (137-145); Total Protein 7.0 g/dL (6.3-8.2)
[2025-04-22 13:02] LABS: NT-proBNP (BNP-Adult 18+) 1990 pg/mL (<450)
[2025-04-22 13:21] LABS: Thyroid Stimulating Hormone 2.42 uIU/mL (0.47-4.68)
== END ==
LOC: LAB 11:00
PROVIDERS: Family Provider Internal Medicine; PCP Internal Medicine; Referring Provider Specialist; Visit Provider Specialist
DX: E78.00 Pure hypercholesterolemia, unspecified (principal); I50.32 Chronic diastolic (congestive) heart failure; I48.20 Chronic atrial fibrillation, unspecified; I48.21 Permanent atrial fibrillation; Z79.01 Long term (current) use of anticoagulants
CPT/HCPCS: 36415; 80053; 83735; 83880; 84443; 85027